=== PATIENT | male | born 1965 | race Caucasian/White ===

== ENCOUNTER 2021-08-23 01:29 | Inpatient (IN) ==
[2021-08-23] MEDS ORDERED: PIPERACILL/TAZOBAC CONSULT ACTIVE PRN ×2 (01:56→05:46)
[2021-08-23] MEDS ORDERED: PIPERACILLIN/TAZOBACTAM 4.5 GM/120 ML BAG IV ONE (01:56)
[2021-08-23 02:14] LABS: Basophils # (auto) 0.01 K/uL (0-0.2); Basophils % (auto) 0.1 %; Hematocrit (blood only) 25.2 % (42-52); Hemoglobin 7.6 g/dL (14.0-18.0); Immature Granulocytes # (auto) 0.04 K/uL (0.00-0.02); Immature Granulocytes % (auto) 0.3 %; Lymphocytes # (auto) 0.56 K/uL (1.2-3.4); Lymphocytes % (auto) 4.5 %; Mean Corpuscular Hemoglobin 26.2 pg (25-34); Mean Corpuscular Hgb Conc 30.2 g/dL (32-36); Mean Corpuscular Volume 86.9 fL (80-100); Mean Platelet Volume 8.5 fL (7.4-10.4); Monocytes # (auto) 0.75 K/uL (0.11-0.59); Monocytes % (auto) 6.1 %; Neutrophils # (auto) 10.96 K/uL (1.4-6.5); Platelet Count 382 K/uL (130-400); RDW Coefficient of Variation 27.8 % (11.5-14.5); RDW Standard Deviation 85.5 fL (36.4-46.3); White Blood Count 12.32 K/uL (4.8-10.8)
--- NOTE | 2021-08-23 02:28 | History & Physical Report ---
Date of Service August 23, 2021 Assessment & Plan (1) Esophageal carcinoma: (2) Abdominal pain: (3) Anemia: Plan: For the present time the patient was admitted to [facility]. We will proceed as follows: Due to the fluid collection there is concern the patient may have had some leakage of bowel contents into his abdomen We will template planning on performing an abdominal washout. We may attempt to try this laparoscopically but may have to convert to an open procedure Keep the patient n.p.o. for the present time We will hydrate the patient with intravenous fluids We will follow serial labs. We will request a medical consultation with the hospitalist service. I have discussed the case with them. As the patient is due to begin chemotherapy on 08/23/2021 we will notify his oncologist, Dr. Devi. Due to the patient's noted anemia I have obtained a blood consent from the patient in case that any blood transfusion is required. Additional recommendations be forthcoming based on operative findings and the patient's clinical course as it unfolds Due to the patient's anemia we will use SCDs only for DVT prevention. We will withhold chemical means for the present time until we are certain there is no evidence of intra-abdominal bleed I have discussed CODE STATUS with the patient and his who is present at bedside and they note in the event of cardiopulmonary as he will be a level 1 full code History of Present Illness Chief Complaint: Abdominal pain Primary Care Provider: Uzair Coffman PA-C This is a 55-year-old gentleman with a history of esophageal cancer. Patient follows at [facility] with Dr. Cruzito Ritter of hematology oncology. The patient was to have chemotherapy initiated on 08/23/2021 (which is today) and follow-up chemotherapy consideration was being given to having patient undergo radiation therapy. Once these modalities were complete according to the patient and his consideration was going to be given to having the patient be evaluated by thoracic surgeon for consideration of esophagectomy. In anticipation of patient's need for chemotherapy he was seen by Dr. Pederson and on 08/22/2021 the patient had a left subclavian a port placed and he also had a J-tube placed via a laparoscopic approach. He also had an umbilical hernia repair at the same time. The patient notes initially after his surgery he was doing well. He did experience some abdominal pain but he merely thought that this was just routine postoperative pain. He notes that throughout the course of the evening following his surgery his pain became worse. The patient denies any fevers, shakes, chills. He did experience nausea without vomiting. He has not had a bowel movement since his surgery but is passing flatus. In addition he notes that his abdomen is more distended and bloated since his surgical procedure. Since his J-tube is in place he has noted a small amount of serosanguineous drainage from around the tube and he has not used the tube for any tube feeds or flushes. As the patient lives near [facility] he presented there due to his abdominal pain. While at this facility he did have a CT scan of the abdomen and pelvis that showed high density material at the gastroesophageal junction which was felt to potentially represent a small amount of hemorrhage. There is also perihepatic and perisplenic fluid along with free fluid throughout the abdomen and pelvis. The patient was noted to have a jejunostomy did appear to be in place on this study. Concerning the patient's esophageal cancer the patient says that he is still able to eat solid food. He says that if he does not chew his food very thoroughly it sometimes will get stuck. Patient reports that he is a lifetime non-smoker but he does have a history of alcohol use in the past. He has no history of DVT or PE. He notes his most recent oral intake was some liquids at approximately 4:00 PM on 08/22/2021 but is otherwise not had anything by mouth since then. In addition the patient notes that he has required multiple transfusions due to anemia related to his cancer. Since arrival to [facility] the patient has had a chest x-ray taken. This showed that he had a left subclavian a port that appeared to be in good position. There did not appear to be any pneumothorax. There is no evidence of pleural effusion. There not appear to be any free air noted. The gastric bubble was visualized under the left hemidiaphragm. CBC has been performed and white blood cell count is noted to be 12.3. His hemoglobin and hematocrit were 7.6 and 25.2.. Platelet count is noted to be 382,000. Coagulation studies and a comprehensive metabolic profile along with a magnesium level are all pending. At the time of my interview the patient was resting comfortably in bed. He did not appear to be in any distress. He was noted to be afebrile and normotensive. He had a slight tachycardia with a heart rate of 107. His pulse ox is 10 percent on room air. Allergies Allergy/AdvReac Type Severity Reaction Status Date / Time No Known Allergies Allergy Verified 08/22/21 08:24 Home Medications Medication Instructions Recorded Confirmed Type acetaminophen 500 mg tablet 500 mg PO QID PRN 08/16/21 08/23/21 History (Tylenol Extra Strength) dronabinol 5 mg capsule (Marinol) 5 mg PO BID 08/16/21 08/23/21 History multivitamin 1 tab PO DAILY 08/16/21 08/23/21 History omeprazole 20 mg capsule,delayed 20 mg PO QPM 08/16/21 08/23/21 History release oxycodone 5 mg tablet 5 mg PO Q4H PRN 08/16/21 08/23/21 History pantoprazole 40 mg tablet,delayed 40 mg PO QAM 08/16/21 08/23/21 History release (Protonix) polyethylene glycol 3350 17 17 g PO DAILY 08/16/21 08/23/21 History gram/dose oral powder (Miralax) sucralfate 1 gram tablet (Carafate) 1 g PO BID 08/16/21 08/23/21 History olanzapine 2.5 mg tablet 2.5 mg PO UD 08/23/21 08/23/21 History ondansetron HCl 8 mg tablet 8 mg PO Q8 PRN 08/23/21 08/23/21 History Past Med/Surg History Medical History 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" following [facility] Gastric cancer "poorly differentiated adenocarcinoma" following [facility] Gastritis GERD (gastroesophageal reflux disease) Iron deficiency anemia Left inguinal hernia Umbilical hernia Surgical History H/O esophagogastroduodenoscopy H/O hernia repair RT INGUINAL HERNIA X 2 S/P rotator cuff repair RT [place] teeth removed Family History Father Cancer Prostate Grandmother (Paternal) Cancer Lung cancer Other No family history of adverse response to anesthesia Social History Smoking Status: Never smoker Second Hand Exposure: Yes ( A CHILD); Hx Alcohol Use: Yes Alcohol type: beer, wine and hard liquor Alcohol Intake Frequency Comment: daily Hx Substance Use: Yes Non-Prescribed Medications: Marijuana Last Used Substance Other:: LAST USED>THIS WEEK *ADVISED by RN Preferred Language: [place]an Communication Ability: Effective Visual Impairment: No Limitations Hearing Ability: Normal Automation Qa Lead Required: No Beliefs That Will Affect Care: None marital status: Current Living Situation: Spouse current occupational status: employed current occupation: [employer] of [employer] How many Children do You have: 1 Feels Safe at Home: Yes Diet Comment: Ensure supplement daily during the past year weight has: decreased > 10 lbs Assistive Devices: Glasses Review of Systems Constitutional: + fatigue; no fever and no chills Eyes: no diplopia Ear, Nose, Mouth, Throat: no ear pain Respiratory: no cough and no dyspnea Cardiovascular: no chest pain Gastrointestinal: as per Subjective / HPI, + abdominal pain and + nausea; no vomiting Genitourinary: no dysuria Musculoskeletal: no back pain Integumentary: no rash Neurologic: no localized weakness Physical Exam Constitutional: well developed and well nourished; no acute distress Eyes: no conjunctival abnormality ENMT: Ears: no hearing impairment and no external ear abnormality Mouth: no oropharynx abnormality Neck: trachea midline No crepitus noted in the soft tissue of patient's neck. Patient had a left subclavian a port. There was a small amount of serosanguineous drainage along the incision but overall there was no erythema or evidence of hematoma at the port site. There is no pain with palpation of this area. Respiratory: normal respiratory effort, lungs clear to auscultation Cardiovascular: Rate/Rhythm: regular rate and regular rhythm Gastrointestinal (Abdomen): Abdomen is mildly distended. There is no rebound tenderness or guarding. There is some generalized pain with palpation. A J- tube is in place. There is a small amount of serosanguineous drainage of the J- tube site. There is no erythema near the insertion site. There is no evidence of fluid or hematoma at the insertion site. Patient has a transverse incision near his umbilicus where umbilical herniorrhaphy was performed. This incision was clean, dry, and intact Musculoskeletal: No calf tenderness Skin: no rashes Neurologic: moves all extremities Psychiatric: A+Ox3, euthymic affect Results & Data Results & Data ([facility]) Vital Signs (Past 12 Hours) Vital Signs Temp Pulse Pulse Resp BP BP Pulse Ox 08/23/21 01:51 107 H 20 108/68 08/23/21 01:50 100 08/23/21 01:35 35.6 C L 72 18 80/53 L 100 Supervising Physician Co-Signing Physician Notes Dr. Dunbarpatient seen in the emergency room after being transferred from [facility] in [place] Patient had a port placed and laparoscopic assisted jejunostomy tube earlier on 08/22/2021. Patient went home and did take some MiraLAX and Dulcolax and began having worsening abdominal pain. CT scan at [facility] showed significant fluid in the abdomen which would not be common the soon after the operation. I do believe he is leaking from his bowel and requires urgent operation This will most likely be done open with abdominal washout and possible repair of the bowel PG Care Time/CCT Total # of Minutes Spent Total Time Spent with Patient: Total time spent is greater than 50% in coordination of care (as documented) at patient's floor/unit and/or counseling patient: Coding Level of Care Code 00853 Initial Inpt Care Lvl 3 Diagnoses Esophageal carcinoma C15.9 Abdominal pain R10.9 Anemia D64.9
[2021-08-23 02:29] LABS: Partial Thromboplastin Ratio 0.9; Partial Thromboplastin Time 23.7 Seconds (21.0-31.0); Prothrombin Time 10.4 Seconds (9.0-12.0)
[2021-08-23 02:35] LABS: Albumin Globulin Ratio 1.3 (0.9-2); Albumin Level 3.4 gm/dl (3.4-5.0); Anisocytosis Present; BUN Creatinine Ratio 16.9 (10-20); Bilirubin,Total 0.5 mg/dl (0.2-1.0); Calcium 8.3 mg/dl (8.5-10.1); Creatinine Clr Calc Pharmacy 66.1 ml/min; Est GFR (Non-African American) 69.1 ml/min; Globulin 2.7 gm/dl (2.5-4.0); Hypochromasia Present; Magnesium 2.3 mg/dl (1.7-2.4); Potassium 4.4 mmol/L (3.5-5.1); Total Protein 6.1 gm/dl (6.0-8.3)
[2021-08-23] MEDS ORDERED: LACTATED RINGER'S 1,000 ML IV SCH (02:45)
[2021-08-23] MEDS ORDERED: SODIUM CHLORIDE 0.9% 250 ML IV PRN ×2 (02:58→17:30)
[2021-08-23] MEDS ORDERED: fentaNYL citrate 100 MCG/2 ML VIAL ONE (03:28)
[2021-08-23] MEDS ORDERED: ONDANSETRON INJ 2 MG/ML 2 ML VIAL ONE (03:28)
[2021-08-23] MEDS ORDERED: PROPOFOL IV EMULSION 10 MG/ML 20 ML VIAL IV ONE (03:28)
[2021-08-23] MEDS ORDERED: SUCCINYLCHOLINE CHLORIDE 20 MG/ML 10 ML VIAL IV ONE (03:28)
[2021-08-23] MEDS ORDERED: ROCURONIUM BROMIDE 10 MG/ML 5 ML VIAL IV ONE (03:28)
[2021-08-23] MEDS ORDERED: LIDOCAINE 2% 2 ML VIAL/AMP(20MG/ML) INFIL ONE (03:28)
--- NOTE | 2021-08-23 03:46 | Anesthesiology Consultation ---
Date of Service August 23, 2021 Assessment & Plan (1) Encounter for pre-operative examination: Chart Review Chart Review: Acceptable Risk for Surgery and Patient NOT seen in Pre Admission Testing Consults Requested none History Surgery Operation Date: 08/23/21 04:00 Proposed Procedures p Exploratory Laparotomy - Lopez Dunbar MD, FACS Height/Weight Height: 5 ft 7 in Weight: 67.6 kg Allergies Allergy/AdvReac Type Severity Reaction Status Date / Time No Known Allergies Allergy Verified 08/22/21 08:24 Medications Home Medications Medication Instructions Recorded Confirmed Last Taken acetaminophen 500 mg tablet 500 mg PO QID PRN 08/16/21 08/23/21 08/21/21 17:00 (Tylenol Extra Strength) dronabinol 5 mg capsule (Marinol) 5 mg PO BID 08/16/21 08/23/21 08/22/21 multivitamin 1 tab PO DAILY 08/16/21 08/23/21 08/22/21 omeprazole 20 mg capsule,delayed 20 mg PO QPM 08/16/21 08/23/21 08/22/21 release oxycodone 5 mg tablet 5 mg PO Q4H PRN 08/16/21 08/23/21 08/22/21 06:00 pantoprazole 40 mg tablet,delayed 40 mg PO QAM 08/16/21 08/23/21 08/22/21 release (Protonix) polyethylene glycol 3350 17 17 g PO DAILY 08/16/21 08/23/21 08/22/21 gram/dose oral powder (Miralax) sucralfate 1 gram tablet (Carafate) 1 g PO BID 08/16/21 08/23/21 08/22/21 olanzapine 2.5 mg tablet 2.5 mg PO UD 08/23/21 08/23/21 08/22/21 ondansetron HCl 8 mg tablet 8 mg PO Q8 PRN 08/23/21 08/23/21 Unknown Active Medications Generic Name Dose Route Start Last Admin Trade Name Freq PRN Reason Stop Dose Admin Lactated Ringer's 1,000 mls @ 80 mls/hr 08/23/21 02:45 08/23/21 03:30 Lr IV 09/22/21 02:44 80 mls/hr .[id number] TIM Administration NPO Date Last Intake of Fluids: 08/22/21 Time Last Intake of Fluids: 16:00 Date Last Intake of Solids: 08/22/21 Time Last Intake of Solids: 16:00 Past Medical History Medical History 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" [facility] Gastric cancer "poorly differentiated adenocarcinoma" following [place] [facility] Gastritis GERD (gastroesophageal reflux disease) Iron deficiency anemia Left inguinal hernia Umbilical hernia Past Family History Family History Father Cancer Prostate Grandmother (Paternal) Cancer Lung cancer Other No family history of adverse response to anesthesia Past Surgical History Surgical History H/O esophagogastroduodenoscopy H/O hernia repair RT INGUINAL HERNIA X 2 S/P rotator cuff repair RT [place] teeth removed Social History Smoking Status: Never smoker tobacco type: smokeless tobacco Hx Alcohol Use: Yes Alcohol type: beer, wine and hard liquor alcohol intake frequency: a few times a week Hx Substance Use: Yes substance use type: marijuana Last Used Substance Other:: LAST USED>THIS WEEK *ADVISED by RN Physical Exam Vital Signs Last Vital Signs Temp 35.6 C L 08/23/21 01:35 Pulse 107 H 08/23/21 01:51 Resp 20 08/23/21 01:51 BP 108/68 08/23/21 01:51 Pulse Ox 100 08/23/21 01:50 Testing Laboratory Results 08/23/21 01:50 08/23/21 01:50 PT 10.4 Seconds (9.0-12.0) 08/23/21 01:50 INR 1.0 (0.9-1.1) 08/23/21 01:50 APTT 23.7 Seconds (21.0-31.0) 08/23/21 01:50 Blood Type Cancelled 08/23/21 02:13 Antibody Screen Cancelled 08/23/21 02:13 Other Testing Electrocardiogram Date:07/25/21 NSR, rate 91 bpm Other Testing PET skull-mid thigh 08/15/2021 Head and neck: There is expected physiologic activity within the visualized brain parenchyma at the skull base and the salivary glands. Thorax: Evaluation of the thorax demonstrates expected physiologic myocardial activity. There are no pathologically enlarged or FDG avid mediastinal lymph nodes. There are no pathologically enlarged or FDG avid mediastinal lymph nodes. There is no evidence of esophageal mass. Abdomen and pelvis: There is expected activity within the liver, spleen, kidneys, renal collecting system, and bladder. Low-level bowel activity is likely within physical limits. There is diffuse wall thickening seen throughout the proximal to mid stomach, extending from the gastroesophageal junction to the pylorus. This is markedly FDG avid with a maximum SUV of 17.1. There is bulky, confluent, and FDG avid upper abdominal and retroperitoneal lymphadenopathy. A left periaortic node on image #173 measures 3.3 cm and demonstrates a maximum SUV of 13.8. Confluent adenopathy in the gastrohepatic region/radha hepatis on image #158 measures up to 4.5 cm and demonstrates a maximum SUV of 12.6. A retrocaval node on image 185 measures 1.9 cm and demonstrates a maximum SUV of 14.1. There is no iliac chain, pelvic sidewall, or inguinal lymphadenopathy. Mildly enlarged right retrocrural nodes at the esophageal hiatus on image #155 demonstrate a maximum SUV of 5.6. Unenhanced CT images: The visualized brain parenchyma the skull base is normal in appearance. The orbits are intact and orbital contents are normal as visualized. The paranasal sinuses and mastoid air cells are clear. The salivary and thyroid glands are within normal limits. There is no cervical lymph adenopathy. The thoracic aorta is normal in caliber. The heart is normal in size and without pericardial effusion. There is no hilar or axillary lymphadenopathy. No airspace consolidation or pleural effusion is identified. No concerning pulmonary lesion is seen. The unenhanced liver, gallbladder, spleen, adrenal glands, pancreas, and kidneys are grossly normal. The abdominal aorta is normal in caliber noting minimal atherosclerotic calcification. There is a fat- containing umbilical hernia. No intraperitoneal free air or abdominal ascites is seen. There is no bowel obstruction. A normal appendix is identified. The bladder, prostate, and seminal vesicles are normal as imaged. There is a fat-co ntaining left inguinal hernia. Mild spondylotic changes noted in the cervical and lumbar spine. No destructive bony lesion is seen. IMPRESSION: 1. There is extensive wall thickening throughout the majority of stomach as detailed above which is markedly FDG avid. The appearance favors a gastric neop lasm or possibly lymphoma as opposed to esophageal carcinoma. 2. There is bulky and confluent upper abdominal and retroperitoneal lymphadenopathy as above. This is also markedly FDG avid. 3. No FDG avid lesion is seen along the course of the esophagus and there is no mediastinal lymphadenopathy. 4. The lungs are clear. 5. Additional findings as above.
[2021-08-23] MEDS ORDERED: NEOSTIGMINE METHYLSULFATE 1 MG/ML 10ML VIAL ONE (05:07)
[2021-08-23] MEDS ORDERED: DEXAMETHASONE SOD INJ 4 MG/ML VIAL ONE (05:07)
[2021-08-23] MEDS ORDERED: GLYCOPYRROLATE 0.2 MG/ML VIAL ONE (05:07)
[2021-08-23] MEDS ORDERED: ePHEDrine sulfate 50 MG/ML AMP ONE (05:07)
--- NOTE | 2021-08-23 05:23 | Operative Report ---
PG Post Operative Report Pre & Post Diagnosis Operation Date: 08/23/21 04:00 Pre-Op Diagnosis: Esophageal Carcinoma, Abdominal Pain, Anemia Post-Op Diagnosis: Esophageal Carcinoma, Abdominal Pain, Anemia I identified the patient and participated in the time-out.: Yes Procedure Operation Date: 08/23/21 04:00 Actual Procedures p Exploratory Laparotomy, Abdominal Washout - Ricardo Pederson DO Surgeon Ricardo Pederson DO Blow Up Operator Dr. Manjinder MD Estimated Blood Loss 1,800 Findings Consistent with Post-Op Diagnosis Specimens none Description of Procedure After informed consent was obtained the patient was taken to the operating room and placed in supine position. After successful intubation a Ocasio catheter was placed and the abdomen as well as existing jejunostomy tube were sterilely prepped and draped in usual fashion. A Midline incision above the umbilicus was made with a 10 blade scalpel. This was carried down through the soft tissue using cautery. Anterior fascia was opened using cautery. Peritoneum was elevated with hemostats and incised with a Metzenbaum scissor. We immediately encountered a large amount of blood clot within the abdominal cavity. There was no bile or succus. We proceeded to suction out blood clot manually as well as with a suction device. All total there was approximately 1800 cc of blood from his prior surgery. There was no evidence of any active bleeding. It appears as though the bleeding came from a muscle at his jejunostomy site. The jejunostomy tube was in good position up against the abdominal wall and not leaking. We thoroughly irrigated the entire abdomen all 4 quadrants with multiple liters of warm irrigation. A 19 Yi Otilio drain was advanced into the pelvis through a separate stab incision and secured to the skin with 2-0 nylon. Again no active bleeding was identified. No other gross abnormalities were seen. The fascia was closed with 0- looped PDS starting at either pole and running them and securing them together in the midline. Soft tissue was irrigated and skin was closed with skin marcos. Silver dressing was applied. The patient was aw akened extubated and transferred to the intensive care unit in guarded condition. I attest to the content of the Intraoperative Record and any orders documented therein. Any exceptions are noted below.
[2021-08-23] MEDS ORDERED: ONDANSETRON INJ 2 MG/ML 2 ML VIAL IV PRN ×2 (05:46→05:58)
[2021-08-23] MEDS ORDERED: PIPERACILLIN/TAZOBACTAM 3.375 GM in DEXTROSE 5% 100 ML IV SCH (05:46)
[2021-08-23] MEDS ORDERED: ACETAMINOPHEN 1,000 MG/100 ML VIAL IV PRN (05:46)
[2021-08-23] MEDS ORDERED: ATROPINE SULFATE 0.1 MG/ML 10ML SYR IV PRN (05:58)
[2021-08-23] MEDS ORDERED: ePHEDrine sulfate 50 MG/ML AMP IV PRN (05:58)
[2021-08-23] MEDS ORDERED: fentaNYL citrate 100 MCG/2 ML VIAL IV PRN (05:58)
[2021-08-23] MEDS ORDERED: HYDROmorphone INJ 1 MG/ML SYRINGE IV PRN (05:58)
[2021-08-23] MEDS ORDERED: HYDROmorphone INJ 0.5 MG/0.5 ML SYR ONE (06:05)
--- NOTE | 2021-08-23 06:11 | Anesthesiology Progress Note ---
Date of Service August 23, 2021 Anesthesia Post Procedure Vital Signs Vital Signs: Temp Pulse Pulse Resp BP BP Pulse Ox 08/23/21 06:10 99 H 16 137/77 96 08/23/21 06:00 100 H 19 143/82 H 99 08/23/21 05:50 95 H 18 140/82 100 08/23/21 05:40 100 H 16 142/80 H 100 08/23/21 05:32 36.5 C 105 H 16 144/77 H 100 08/23/21 01:51 107 H 20 108/68 08/23/21 01:50 100 08/23/21 01:35 35.6 C L 72 18 80/53 L 100 Pain Intensity Abdomen: Pain Intensity: 4 Transfer of Care Handoff Completed per policy Notes Mental Status: alert / awake / arousable and participated in evaluation Patient Amnestic to Procedure: Yes Nausea / Vomiting: adequately controlled Pain: adequately controlled Airway Patency, RR, SpO2: stable & adequate BP & HR: stable & adequate Hydration State: stable & adequate Anesthetic Complications: no major complications apparent and Pt Satisfied with anesthetic care
--- NOTE | 2021-08-23 06:13 | Procedure Note ---
Procedure Note Date of Service August 23, 2021 Note Radial arterial line placed in OR8 after induction in preparation for exploratory lap with dr. Dunbar and Dr. Pederson. Left wrist prepped with chlorhexidine and draped with sterile towels. 20 G angiocath placed under sterile technique utilizing sterile gloves, surgical hats and masks. Catheter threaded using seldinger technique with return of pulsatile, bright red blood. Site covered with occlusive dressing and taped in place. Waveform consistent with correct arterial placement. After placement, fingers of procedural hand had normal perfusion. Patient tolerated procedure well without complications. Mandie Hall MD, PhD Anesthesiologist Coding
--- NOTE | 2021-08-23 06:28 | Critical Care Consultation ---
Date of Consultation August 23, 2021 Assessment & Plan (1) Admitted to intensive care unit: Reason Critically Ill: 55-year-old male with newly diagnosed esophageal carcinoma who is status post G-tube placement with findings concerning for intra-abdominal blood. Patient status post exploratory laparotomy with large amount of blood noted in the abdomen. Patient requiring close hemodynamic monitoring status post surgical intervention and transfusion of blood products. NEURO - * CAM ICU: NEGATIVE CARDIAC/VASCULAR - * Briefly hypotensive intraoperatively. * Normotensive status post transfusion of PRBCs. * Monitor on telemetry. RESPIRATORY - * No history of pulmonary disease. * Saturating well at this time. GI/NUTRITION - * Esophageal carcinoma: * Patient previously scheduled to undergo chemotherapy today. Will defer to heme/onc in light of recent events. * s/p J tube placement. * s/p LEFT subclavian A port placement. RENAL/LYTES - * No significant electrolyte derangements. - * Ocasio in place - Strict I&Os. ENDO - * No h/o DM or Thyroid Dz * BSGs per unit protocol. ISS --> gtt per unit policy. HEME - * Acute blood loss anemia: * s/p transfusion of 1U PRBC. * Trend H&H. * Monitor for ongoing s/s bleeding. ID - * No immediate concerns for infectious causes. * Trend fever curve. LINES/IV ACCESS - * PIVs x2 * LEFT Radial Arterial Line * LEFT subclavian A port. * Ocasio DVT PROPHYLAXIS - * Hold on chemoprophylaxis s/p intraabdominal bleeding. * SCDs I have personally spent 32 minutes of critical care time in the direct management of this patient. This is a life/limb threatening event. This includes time spent evaluating patient, direct bedside care, chart review, placing orders, interpretation of diagnostic studies, discussion with consultants, patient, and family members, as well as other required patient management activities. This time is exclusive of all separately billable procedures, and teaching time and separate from and in addition to any other critical care service time. Thank you for allowing us to participate in the care of this patient. Please re maddie to my attending physician's documentation for any further recommendations. (2) S/P exploratory laparotomy: (3) Anemia: (4) Esophageal carcinoma: History of Present Illness Attending Physician: Ricardo Pederson, History of Present Illness Patient is a 55-year-old male with a recently diagnosed esophageal cancer who is now receiving treatment at [facility]. He underwent placement of LEFT subclavian MediPort, J-tube placement, and umbilical hernia repair yesterday. Patient did extremely well and was discharged home. Unfortunately, the patient had increased abdominal discomfort and presented to the [facility] emergency department where he underwent CT scan concerning with diffuse fluid throughout the abdomen. Patient accepted back to this institution for likely need for surgical intervention. Patient underwent exploratory laparotomy with abdominal washout with findings of bleeding at the site of the abdominal wall without active bleeding noted. Patient received 1 unit PRBC intraoperatively. He was extubated and brought to the ICU for ongoing management. Upon evaluation in the ICU, the patient is awake, alert, and oriented. He is groggy status post anesthesia. He does complain of some abdominal discomfort at the surgical site, but otherwise offers no significant complaints at this time. Allergies Allergy/AdvReac Type Severity Reaction Status Date / Time No Known Allergies Allergy Verified 08/22/21 08:24 Home Medications Medication Instructions Recorded Confirmed Type acetaminophen 500 mg tablet 500 mg PO QID PRN 08/16/21 08/23/21 History (Tylenol Extra Strength) dronabinol 5 mg capsule (Marinol) 5 mg PO BID 08/16/21 08/23/21 History multivitamin 1 tab PO DAILY 08/16/21 08/23/21 History omeprazole 20 mg capsule,delayed 20 mg PO QPM 08/16/21 08/23/21 History release oxycodone 5 mg tablet 5 mg PO Q4H PRN 08/16/21 08/23/21 History pantoprazole 40 mg tablet,delayed 40 mg PO QAM 08/16/21 08/23/21 History release (Protonix) polyethylene glycol 3350 17 17 g PO DAILY 08/16/21 08/23/21 History gram/dose oral powder (Miralax) sucralfate 1 gram tablet (Carafate) 1 g PO BID 08/16/21 08/23/21 History olanzapine 2.5 mg tablet 2.5 mg PO UD 08/23/21 08/23/21 History ondansetron HCl 8 mg tablet 8 mg PO Q8 PRN 08/23/21 08/23/21 History Patient History Medical History 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" [facility] Gastric cancer "poorly differentiated adenocarcinoma" following [facility] Gastritis GERD (gastroesophageal reflux disease) Iron deficiency anemia Left inguinal hernia Umbilical hernia Surgical History H/O esophagogastroduodenoscopy H/O hernia repair RT INGUINAL HERNIA X 2 S/P rotator cuff repair RT [place] teeth removed Family History Father Cancer Prostate Grandmother (Paternal) Cancer Lung cancer Other No family history of adverse response to anesthesia Social History Smoking Status: Never smoker Second Hand Exposure: Yes (As a child); Do You Dip or Chew Tobacco: No; Tobacco Cessation Education Requested by Patient: No Hx Alcohol Use: Yes Alcohol type: beer and wine Alcohol Intake Frequency Comment: daily Hx Substance Use: Yes Non-Prescribed Medications: Marijuana Last Used Substance: Days (ago) Last Used Substance Other:: LAST USED>THIS WEEK *ADVISED by RN Preferred Language: Albanian Communication Ability: Effective Visual Impairment: No Limitations Hearing Ability: Normal Pump Tester Required: No Beliefs That Will Affect Care: None marital status: Current Living Situation: Family current occupational status: employed 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 GENERAL - 55-year-old male appearing his stated age who is in no acute distress. Communicates well with provider and answers questions appropriately. HEAD - NC/AT. EYES - PERRL with EOMI bilaterally. Sclera anicteric. NECK - Neck with FROM. LUNGS - Chest wall symmetric without accessory muscle use, intercostals retractions, or central cyanosis. Normal vesicular breath sounds CTA B/L. No wheezes, rales, or rhonchi appreciated. CARDIAC - RRR with S1/S2. No murmur, rubs, or gallops appreciated. ABDOMEN - Abdominal contour flat. Midline surgical incision site clean, dry, and intact. GEORGE drain in place. PEG tube present. Mild diffuse TTP. EXTREMITIES - No clubbing or peripheral cyanosis. No pretibial edema present. +3/5 radial and dorsalis pedis pulses palpated throughout. NEUROLOGIC - Cranial nerves II through XII grossly intact. PSYCH - A&Ox3 and cooperates fully with examiner. Pt is very pleasant and interacts well with examiner. Results & Data Results & Data ([facility]) Vital Signs (Past 12 Hours) Vital Signs Temp Pulse Pulse Resp BP BP Pulse Ox 08/23/21 05:50 95 H 18 140/82 100 08/23/21 05:40 100 H 16 142/80 H 100 08/23/21 05:32 36.5 C 105 H 16 144/77 H 100 08/23/21 01:51 107 H 20 108/68 08/23/21 01:50 100 08/23/21 01:35 35.6 C L 72 18 80/53 L 100 Coding Level of Care Code Critical Care 1st 30-74 mins Diagnoses Admitted to intensive care unit Z78.9 S/P exploratory laparotomy Z98.890 Anemia D64.9 Esophageal carcinoma C15.9 Time Spent (min) 32
[2021-08-23 06:54] LABS: Hematocrit (blood only) 23.8 % (42-52); Hemoglobin 7.6 g/dL (14.0-18.0)
[2021-08-23] MEDS: LACTATED RINGER'S 1,000 ML IV SCH ×2 (07:14→15:58)
--- NOTE | 2021-08-23 07:14 | XRay Report ---
XR chest 1V portable HISTORY: 55 years-old Male abdomnal pain acute chest and abdominal pain COMPARISON: Chest radiograph 08/22/2021 TECHNIQUE: Portable AP view of the chest FINDINGS: Cardiomediastinal and hilar silhouettes are within normal limits. Left subclavian [address] is noted with distal tip terminating in the expected location of the upper SVC. Trace pleural eff usions. Minimal left basilar atelectasis persists. No pneumothorax, lobar airspace consolidation or o vert pulmonary edema. The bones of the chest appear grossly intact. Metallic coil device projects ove r the neck, possibly external to the patient. Healed chronic fracture of the anterior left second rib . IMPRESSION: Unchanged trace pleural effusions with minimal left basilar atelectasis. ACT 112: Negative or not required by law. The above report was generated using voice recognition software. It may contain grammatical, syntax o r spelling errors. Electronically signed by: Claudio Delgado M.D. 08/23/2021 7:12 AM
[2021-08-23] MEDS: PIPERACILLIN/TAZOBACTAM 3.375 GM in DEXTROSE 5% 100 ML IV SCH ×2 (07:30→17:23)
[2021-08-23] MEDS: MoRPHine SULFATE 4 MG/ML 1 ML CARP\\VIAL IV PRN ×5 (07:43→22:35)
--- NOTE | 2021-08-23 08:10 | Hospitalist Progress Note ---
Date of Service August 23, 2021 Assessment & Plan (1) Esophageal carcinoma: Plan: This is a 55-year-old gentleman with a history of esophageal cancer. Patient follows at [facility] with Dr. Cruzito Ritter of hematology oncology. The patient was to have chemotherapy initiated on 08/23/2021 (which is today) and follow-up chemotherapy consideration was being given to having patient undergo radiation therapy. Once these modalities were complete accor ding to the patient and his consideration was going to be given to having the patient be evaluated by thoracic surgeon for consideration of esophagectomy. Pt presented with abdominal pain and abnormal imaging suggestion some free fluid in the abdomen, was taken to the OR overnight for washout. The results of the laparotomy revealed 1800cc of bloody liquid and clot material believed to be co saray from a muscle at the site of the jejunostomy. A drain was placed (2) Acute blood loss anemia: Plan: Patient with postoperative acute blood loss anemia likely from his large hematoma found in the abdomen. We will continue to watch his globin level and transfuse as needed Admission and Anticipated Discharge Date Admission Date: August 23, 2021 Results & Data Results & Data ([facility]) Vital Signs (Past 12 Hours) Vital Signs Temp Pulse Pulse Resp BP BP Pulse Ox 08/23/21 06:20 97 H 14 131/73 95 08/23/21 06:10 99 H 16 137/77 96 08/23/21 06:05 104 H 20 144/77 H 100 08/23/21 06:00 100 H 19 143/82 H 99 08/23/21 05:50 95 H 18 140/82 100 08/23/21 05:40 100 H 16 142/80 H 100 08/23/21 05:32 97.7 F 105 H 16 144/77 H 100 08/23/21 01:51 107 H 20 108/68 08/23/21 01:50 100 08/23/21 01:35 96.1 F L 72 18 80/53 L 100 PG Care Time/CCT Total # of Minutes Spent Total Time Spent with Patient: Total time spent is greater than 50% in coordination of care (as documented) at patient's floor/unit and/or counseling patient: Coding Diagnoses Esophageal carcinoma C15.9 Acute blood loss anemia D62
[2021-08-23] MEDS ORDERED: GLUCAGON FOR INJ 1 MG VIAL IM PRN (09:45)
[2021-08-23] MEDS ORDERED: CARBOHYDRATES FOR HYPOGLYCEMIA PO PRN (09:45)
[2021-08-23] MEDS ORDERED: DEXTROSE 50% 50 ML SYRINGE IV PRN (09:45)
[2021-08-23] MEDS ORDERED: GLUCOSE 40% GEL 15 GM TUBE PO PRN (09:45)
[2021-08-23] MEDS ORDERED: GLUCOSE 10 TABS/TUBE PO PRN (09:45)
--- NOTE | 2021-08-23 10:12 | Surgery Progress Note ---
Date of Service August 23, 2021 Assessment & Plan (1) S/P exploratory laparotomy: Plan: POD#1 mediport placement, umbilical hernia repair, lap jejunostomy tube placement complicated by postop bleeding now POD#0 exlap and abdominal washout with evacuation of hematoma - Post op Hbg 7.6 (7.6). Cr: 1.1 (0.6), Ocasio in place for I/Os. - Vitals show stable BP and HR 90-100s. He has received a total of 1u PRBCs. Not on pressors - ICU planning on rechecking CBC at 2 - On exam patient's abdomen is soft, mild tenderness to palpation, GEORGE drain serosang 150cc documented - Okay to start clear liquids - Continue close monitoring and supportive care for now - Appreciate ICU, hospitalist, onc assistance and recommendations Admission and Anticipated Discharge Date Admission Date: August 23, 2021 Subjective Patient feeling okay. Some abdominal discomfort, but much better overall. Denies nausea/vomiting. Physical Exam Physical Exam: awake/alert Gastrointestinal (Abdomen): Inspection/Auscultation: + abdominal surgical incision (dressings in place, clean and intact) Percussion/Palpation: + abdomen tender (fabi-incisional discomfort to palpation) and abdomen soft GEORGE drain serosang;90+ 60cc documented Results & Data ([facility]) Vital Signs (Past 12 Hours) Vital Signs Temp Pulse Pulse Resp BP BP Pulse Ox 08/23/21 09:00 36.8 C 104 H 20 155/86 H 97 08/23/21 08:00 99 H 08/23/21 06:20 97 H 14 131/73 95 08/23/21 06:10 99 H 16 137/77 96 08/23/21 06:05 104 H 20 144/77 H 100 08/23/21 06:00 100 H 19 143/82 H 99 08/23/21 05:50 95 H 18 140/82 100 08/23/21 05:40 100 H 16 142/80 H 100 08/23/21 05:32 36.5 C 105 H 16 144/77 H 100 08/23/21 01:51 107 H 20 108/68 08/23/21 01:50 100 08/23/21 01:35 35.6 C L 72 18 80/53 L 100 PG Care Time/CCT Total # of Minutes Spent Total Time Spent with Patient: Total time spent is greater than 50% in coordination of care (as documented) at patient's floor/unit and/or counseling patient: Coding Level of Care Code None Diagnoses S/P exploratory laparotomy Z98.890
[2021-08-23] MEDS: INSULIN ASPART PER UNIT SC SCH ×3 (11:34→20:19)
[2021-08-23] MEDS: PANTOprazole 40 MG in SYRINGE 0 ML IV SCH (11:37)
[2021-08-23 14:12] LABS: Hematocrit (blood only) 22.2 % (42-52); Hemoglobin 7.1 g/dL (14.0-18.0)
--- NOTE | 2021-08-23 14:45 | Hospitalist Consultation ---
Date of Consultation August 23, 2021 Assessment & Plan (1) Esophageal carcinoma: This is a 55-year-old gentleman with a history of esophageal cancer. Patient follows at [facility] with Dr. Cruzito Ritter of hematology oncology. The patient was to have chemotherapy initiated on 08/23/2021 (which is today) and follow-up chemotherapy consideration was being given to having patient undergo radiation therapy. Once these modalities were complete according to the patient and his consideration was going to be given to having the patient be evaluated by thoracic surgeon for consideration of esophagectomy. Pt presented with abdominal pain and abnormal imaging suggestion some free fluid in the abdomen, was taken to the OR overnight for washout. The results of the laparotomy revealed 1800cc of bloody liquid and clot material believed to be coming from a muscle at the site of the jejunostomy. A drain was placed (2) Acute blood loss anemia: Patient with postoperative acute blood loss anemia likely from his large hematoma found in the abdomen. We will continue to watch his globin level and transfuse as needed History of Present Illness Attending Physician: Ricardo Pederson, History of Present Illness Sedation or medical management as patient is transitioning out of the intensive care unit. Patient has acute blood loss anemia as he had exploratory laparotomy which showed a large amount of blood in his abdomen which was felt to be possibly resulting from a muscular bleed after recent laparoscopic J-tube was placed in preparation for treatment for esophageal carcinoma. Patient is doing well postoperatively awake alert he says his abdomen feels much better surgery is in charge of advancing his diet but he is hemodynamically stable at this time although slightly anemic and will be transferred to a [facility] telemetry unit for watching his vital signs closely and then if he is improved after 24 hours may consider transition to medical unit in general. Allergies Allergy/AdvReac Type Severity Reaction Status Date / Time No Known Allergies Allergy Verified 08/22/21 08:24 Home Medications Medication Instructions Recorded Confirmed Type acetaminophen 500 mg tablet 500 mg PO QID PRN 08/16/21 08/23/21 History (Tylenol Extra Strength) dronabinol 5 mg capsule (Marinol) 5 mg PO BID 08/16/21 08/23/21 History multivitamin 1 tab PO DAILY 08/16/21 08/23/21 History omeprazole 20 mg capsule,delayed 20 mg PO QPM 08/16/21 08/23/21 History release oxycodone 5 mg tablet 5 mg PO Q4H PRN 08/16/21 08/23/21 History pantoprazole 40 mg tablet,delayed 40 mg PO QAM 08/16/21 08/23/21 History release (Protonix) polyethylene glycol 3350 17 17 g PO DAILY 08/16/21 08/23/21 History gram/dose oral powder (Miralax) sucralfate 1 gram tablet (Carafate) 1 g PO BID 08/16/21 08/23/21 History olanzapine 2.5 mg tablet 2.5 mg PO UD 08/23/21 08/23/21 History ondansetron HCl 8 mg tablet 8 mg PO Q8 PRN 08/23/21 08/23/21 History Patient History Medical History (Updated 08/23/21 @ 09:46 by Dorcas Pierce, RN) 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" following [facility] Gastric cancer "poorly differentiated adenocarcinoma" following [facility] Gastritis GERD (gastroesophageal reflux disease) Iron deficiency anemia Left inguinal hernia Umbilical hernia Surgical History (Updated 08/23/21 @ 09:48 by Dorcas Pierce, RN) H/O esophagogastroduodenoscopy H/O exploratory laparotomy (08/22/21) Exploratory Laparotomy, Abdominal Washout - Ricardo Pederson DO 08/22/2021 H/O hernia repair RT INGUINAL HERNIA X 2 Jejunostomy tube present (08/22/21) p Insertion of Infusaport Left Subclavian(Left) - Ricardo Pederson DO s Laproscopic Assisted Jejunostomy Tube Placement with Repair of Umbilical Hernia(Not Applicable) - Ricardo Pederson DO 08/22/21 Port-A-Cath in place (08/22/21) p Insertion of Infusaport Left Subclavian(Left) - Ricardo Pederson DO s Laproscopic Assisted Jejunostomy Tube Placement with Repair of Umbilical Hernia- Ricardo Pederson DO 08/22/21 S/P rotator cuff repair RT [place] teeth removed Family History Father Cancer Prostate Grandmother (Paternal) Cancer Lung cancer Other No family history of adverse response to anesthesia Social History (Reviewed 08/23/21 @ 06:20 by AMOR Camejo Smoking Status: Never smoker Second Hand Exposure: Yes (As a child); Do You Dip or Chew Tobacco: No; Tobacco Cessation Education Requested by Patient: No Hx Alcohol Use: Yes Alcohol type: beer and wine Alcohol Intake Frequency Comment: daily Hx Substance Use: Yes Non-Prescribed Medications: Marijuana Last Used Substance: Days (ago) Last Used Substance Other:: LAST USED>THIS WEEK *ADVISED by RN Preferred Language: Nepalese Communication Ability: Effective Visual Impairment: No Limitations Hearing Ability: Normal Lead Press Operator Required: No Beliefs That Will Affect Care: None marital status: Current Living Situation: Family current occupational status: employed 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 How many Children do You have: 1 Other Information That Helps Us Care for You: No Feels Safe at Home: Yes Safety Concerns: Feels Safe At This Time Diet Comment: Ensure supplement daily during the past year weight has: decreased > 10 lbs Assistive Devices: None Assistive Devices Comment: juanita ureña Review of Systems Review of Systems: Mild distress and fatigue no headache, no visual changes no speech or swallowing issues no chest pain, pressure or palpitations no shortness of breath, cough or wheezes Is of some abdominal pain dressings are in place he has a J-tube he also has a drain placed intraoperatively because of the large amount of bleeding no dysuria, hematuria or frequency no focal joint pain or swelling no back pain, CVA tenderness or radicular pain no bruising, bleeding or rashes no focal signs of weakness or numbness or altered sensation no complaints of anxiety or depression.. Physical Exam Physical Exam: The patient appeared well nourished and normally developed. Vital signs as documented. Head exam is normocephalic atraumatic Neck is without JVD, thyromegaly, or carotid bruits. Lungs are clear to auscultation, diminished at the bases Cardiac exam, Rhythm is regular.. No murmurs, rubs or gallops. Abdominal exam hypoactive bowel sounds dressings in place drain in place J-tube in place Extremities are nonedematous and both pedal pulses are present Neurologic exam is alert and oriented, no focal loss of strength or sensation Skin is without bruises or rashes Psychologically is without concerns for anxiety or depression.. Results & Data Results & Data ([facility]) Vital Signs (Past 12 Hours) Vital Signs Temp Pulse Pulse Resp BP Pulse Ox 08/23/21 09:00 98.2 F 104 H 20 155/86 H 97 08/23/21 08:00 99 H 08/23/21 06:20 97 H 14 131/73 95 08/23/21 06:10 99 H 16 137/77 96 08/23/21 06:05 104 H 20 144/77 H 100 08/23/21 06:00 100 H 19 143/82 H 99 08/23/21 05:50 95 H 18 140/82 100 08/23/21 05:40 100 H 16 142/80 H 100 08/23/21 05:32 97.7 F 105 H 16 144/77 H 100 PG Care Time/CCT Total # of Minutes Spent Total Time Spent with Patient: Total time spent is greater than 50% in coordination of care (as documented) at patient's floor/unit and/or counseling patient: Coding Level of Care Code 67004 Inpt Consult Level 3 Diagnoses Esophageal carcinoma C15.9 Acute blood loss anemia D62
[2021-08-24] MEDS: PIPERACILLIN/TAZOBACTAM 3.375 GM in DEXTROSE 5% 100 ML IV SCH ×2 (00:18→08:56)
[2021-08-24] MEDS: MoRPHine SULFATE 4 MG/ML 1 ML CARP\\VIAL IV PRN ×7 (01:35→23:47)
[2021-08-24] MEDS ORDERED: Nursing to Pharmacy Communication SCH (05:30)
[2021-08-24 06:20] LABS: Anisocytosis Present; Basophils # (auto) 0.01 K/uL (0-0.2); Basophils % (auto) 0.1 %; Hemoglobin 9.4 g/dL (14.0-18.0); Immature Granulocytes # (auto) 0.05 K/uL (0.00-0.02); Immature Granulocytes % (auto) 0.4 %; Lymphocytes # (auto) 0.52 K/uL (1.2-3.4); Lymphocytes % (auto) 3.8 %; Mean Corpuscular Hemoglobin 27.8 pg (25-34); Mean Corpuscular Hgb Conc 32.4 g/dL (32-36); Mean Corpuscular Volume 85.8 fL (80-100); Mean Platelet Volume 8.2 fL (7.4-10.4); Monocytes # (auto) 1.34 K/uL (0.11-0.59); Monocytes % (auto) 9.7 %; Neutrophils # (auto) 11.92 K/uL (1.4-6.5); Platelet Count 188 K/uL (130-400); RDW Standard Deviation 70.7 fL (36.4-46.3); Red Blood Count 3.38 M/uL (4.7-6.1); White Blood Count 13.84 K/uL (4.8-10.8)
[2021-08-24 06:33] LABS: BUN Creatinine Ratio 28.8 (10-20); Calcium 7.9 mg/dl (8.5-10.1); Creatinine Clr Calc Pharmacy 132.3 ml/min; Est GFR (African American) 132.1 ml/min; Potassium 4.5 mmol/L (3.5-5.1)
--- NOTE | 2021-08-24 07:56 | Hospitalist Progress Note ---
Date of Service August 24, 2021 Assessment & Plan (1) Esophageal carcinoma: Plan: This is a 55-year-old gentleman with a history of esophageal cancer. Patient follows at [facility] with Dr. Cruzito Ritter of hematology oncology. The patient was to have chemotherapy initiated on 08/23/2021 (which is today) and follow-up chemotherapy consideration was being given to having patient undergo radiation therapy. Once these modalities were complete accor ding to the patient and his consideration was going to be given to having the patient be evaluated by thoracic surgeon for consideration of esophagectomy. Pt presented with abdominal pain and abnormal imaging suggestion some free fluid in the abdomen, was taken to the OR overnight for washout. The results of the laparotomy revealed 1800cc of bloody liquid and clot material believed to be coming from a muscle at the site of the jejunostomy. A drain was placed POD#2 mediport placement, umbilical hernia repair, lap jejunostomy tube placement complicated by postop bleeding now POD#1 exlap and abdominal washout with evacuation of hematoma s/p 2 u PRBC last evening for drop in hgb to 7.1 --> 9.4 ZOsyn IV- continued On clear liquids --> advance diet per surgery PT/OT/pain management/DVT prophylaxis (SCDs) per primary service Heme/Onc on consult -- seeing today. Rec checking iron studies/transfuse if needed. Rec to d/c koo, advance diet and hopefully get patient d/c as soon as possible. --> Can postpone chemo but would not want to wait past 10 days. Offical consult pending Had been on clear liquid diet, koo discontinued this morning Increased abd pain/GEORGE output this morning --> reached out to surgery for re-eval but will check KUB If vomiting, would place NGT Instructed patient to avoid further PO intake/encourage ambulation as tolerated IVF LR @ 75cc/hr Ordered incentive spirometer Iron studies obtained --> iron 18, trans % sat 7% --> Venofer x 1 today, repeat in AM Ca 7.9, albumin 2.5, corrected 8.5 Mag 2..5 Monitor labs (2) Acute blood loss anemia: Plan: Patient with postoperative acute blood loss anemia likely from his large hematoma found in the abdomen. s/p 2 u PRBC 08/23 for hgb drop to 7.1 --> 9.4 on repeat Will check Iron panel --> Venofer 300mg IV today, repeat in AM Continue supplementation at discharge Plan: SCDs for DVT prophylaxis, chemoproph held in setting of acute blood loss/bleeding KUB for possible obstruction, NGT if nausea/vomiting Management per general surgery Admission and Anticipated Discharge Date Admission Date: August 23, 2021 Subjective patient evaluated this morning doing ok, pain tolerable and just got morphine GEORGE drain just emptied for 125cc bloody drainage. Not passing gas/no BM, no appetite. Discussed avoiding pushing any oral agents. Has not been out of bed yet, encouraged some ambulation when pain controlled. No fever/chills but had been feeling warm last evening. No chest pain but has some shortness of breath when breathing in from his abdominal pain. Encouraging incentive spirometer. Checked iron studies and discussed venofer IV. Koo d/c this morning, no urination since but this was just removed about half hour ago. Later after seeing another patient stopped back and saw GEORGE already accumulated about 80-90cc bloody drainage, patient in no acute distress but very worried about the increased drainage as this is more than prior. Will message general surgery for repeat eval and will also check stat KUB. Physical Exam Physical Exam: General: WD male, mild distress (improved after morphine), sitting up in bed, general pallor Eyes anicteric, pupils equal/reactive Mouth: mmm Chest: port to L chest, covered by tegaderm, minimal dried blood/appropriately tender Resp: occasional cough, not tachypneic, no accessory muscle use, diminished in the bases with associated crackles, no wheezing, on room air CV: regular rhythm, tachycardic (104bpm), no m/r/g, no edema, pulses palpable GI: hypoactive/absent BS, tender to palpation about surgical incision, voluntary guarding/no rebound, J tube in place, splintering with cough Ext/MSK: no focal deficits, CN intact Pscyh: alert, oriented, cooperative Results & Data Results & Data ([place]) Vital Signs (Past 12 Hours) Vital Signs Temp Pulse Pulse Resp BP BP Pulse Ox 08/24/21 07:39 37.1 C 110 H 16 153/82 H 91 08/24/21 03:06 37.1 C 116 H 20 135/80 90 08/24/21 01:28 37.5 C 116 H 16 152/83 H 92 08/24/21 00:05 37.5 C 114 H 18 153/81 H 08/24/21 00:00 116 H 08/23/21 23:05 37.3 C 114 H 18 146/81 H 93 08/23/21 22:35 37.2 C 115 H 18 154/88 H 92 08/23/21 22:20 37 C 117 H 18 146/75 H 94 08/23/21 22:03 37.1 C 120 H 18 144/77 H 94 08/23/21 21:37 36.6 C 115 H 18 152/82 H 96 08/23/21 21:20 36.8 C 117 H 18 139/75 96 08/23/21 20:20 36.6 C 115 H 18 150/84 H 96 Laboratory Results 08/24/21 08/24/21 08/24/21 Range/Units 07:25 05:46 05:46 WBC (4.8-10.8) K/uL RBC (4.7-6.1) M/uL Hgb (14.0-18.0) g/dL Hct (42-52) % MCV (80-100) fL MCH (25-34) pg MCHC (32-36) g/dL RDW Std Deviation (36.4-46.3) fL RDW Coeff of Briana (11.5-14.5) % Plt Count (130-400) K/uL MPV (7.4-10.4) fL Immature Gran % (Auto) % Neut % (Auto) % Lymph % (Auto) % [place] % (Auto) % Eos % (Auto) % Baso % (Auto) % Neut # (Auto) (1.4-6.5) K/uL Lymph # (Auto) (1.2-3.4) K/uL [place] # (Auto) (0.11-0.59) K/uL Eos # (Auto) (0-0.5) K/uL Baso # (Auto) (0-0.2) K/uL Immature Gran # (Auto) (0.00-0.02) K/uL Anisocytosis Sodium 134 L (136-145) mmol/L Potassium 4.5 (3.5-5.1) mmol/L Chloride 101 (98-107) mmol/L Carbon Dioxide 29 (21-32) mmol/L Anion Gap 4 (3-11) BUN 17 (6-23) mg/dl Creatinine Cancelled 0.59 L D (0.6-1.4) mg/dl Est Cr Clr Drug Dosing Cancelled 132.3 ml/min Est GFR ( Amer) Cancelled 132.1 ml/min Est GFR (Non-Af Amer) Cancelled 114.0 ml/min BUN/Creatinine Ratio 28.8 H (10-20) Glucose 135 H (70-99(Fasting)) mg/dl POC Glucose 142 H (70-99) mg/dl Calcium 7.9 L (8.5-10.1) mg/dl Blood Type Antibody Screen Crossmatch 08/24/21 08/23/21 08/23/21 Range/Units 05:46 20:18 17:43 WBC 13.84 H (4.8-10.8) K/uL RBC 3.38 L (4.7-6.1) M/uL Hgb 9.4 L (14.0-18.0) g/dL Hct 29.0 L (42-52) % MCV 85.8 (80-100) fL MCH 27.8 (25-34) pg MCHC 32.4 (32-36) g/dL RDW Std Deviation 70.7 H (36.4-46.3) fL RDW Coeff of Briana 22.0 H (11.5-14.5) % Plt Count 188 D (130-400) K/uL MPV 8.2 (7.4-10.4) fL Immature Gran % (Auto) 0.4 % Neut % (Auto) 86.0 % Lymph % (Auto) 3.8 % [place] % (Auto) 9.7 % Eos % (Auto) 0.0 % Baso % (Auto) 0.1 % Neut # (Auto) 11.92 H (1.4-6.5) K/uL Lymph # (Auto) 0.52 L (1.2-3.4) K/uL [place] # (Auto) 1.34 H (0.11-0.59) K/uL Eos # (Auto) 0.00 (0-0.5) K/uL Baso # (Auto) 0.01 (0-0.2) K/uL Immature Gran # (Auto) 0.05 H (0.00-0.02) K/uL Anisocytosis Present Sodium (136-145) mmol/L Potassium (3.5-5.1) mmol/L Chloride (98-107) mmol/L Carbon Dioxide (21-32) mmol/L Anion Gap (3-11) BUN (6-23) mg/dl Creatinine (0.6-1.4) mg/dl Est Cr Clr Drug Dosing ml/min Est GFR ( Amer) ml/min Est GFR (Non-Af Amer) ml/min BUN/Creatinine Ratio (10-20) Glucose (70-99(Fasting)) mg/dl POC Glucose 137 H 192 H (70-99) mg/dl Calcium (8.5-10.1) mg/dl Blood Type Antibody Screen Crossmatch 08/23/21 08/23/21 08/23/21 Range/Units 13:57 11:26 02:56 WBC (4.8-10.8) K/uL RBC (4.7-6.1) M/uL Hgb 7.1 L (14.0-18.0) g/dL Hct 22.2 L (42-52) % MCV (80-100) fL MCH (25-34) pg MCHC (32-36) g/dL RDW Std Deviation (36.4-46.3) fL RDW Coeff of Briana (11.5-14.5) % Plt Count (130-400) K/uL MPV (7.4-10.4) fL Immature Gran % (Auto) % Neut % (Auto) % Lymph % (Auto) % [place] % (Auto) % Eos % (Auto) % Baso % (Auto) % Neut # (Auto) (1.4-6.5) K/uL Lymph # (Auto) (1.2-3.4) K/uL [place] # (Auto) (0.11-0.59) K/uL Eos # (Auto) (0-0.5) K/uL Baso # (Auto) (0-0.2) K/uL Immature Gran # (Auto) (0.00-0.02) K/uL Anisocytosis Sodium (136-145) mmol/L Potassium (3.5-5.1) mmol/L Chloride (98-107) mmol/L Carbon Dioxide (21-32) mmol/L Anion Gap (3-11) BUN (6-23) mg/dl Creatinine (0.6-1.4) mg/dl Est Cr Clr Drug Dosing ml/min Est GFR ( Amer) ml/min Est GFR (Non-Af Amer) ml/min BUN/Creatinine Ratio (10-20) Glucose (70-99(Fasting)) mg/dl POC Glucose 161 H (70-99) mg/dl Calcium (8.5-10.1) mg/dl Blood Type A Positive Antibody Screen NEGATIVE Crossmatch See Detail PG Care Time/CCT Total # of Minutes Spent Total Time Spent with Patient: Total time spent is greater than 50% in coordination of care (as documented) at patient's floor/unit and/or counseling patient: Coding Level of Care Code 48171 Subseq Hosp Care Lvl 3 Diagnoses Esophageal carcinoma C15.9 Acute blood loss anemia D62
--- NOTE | 2021-08-24 08:19 | Surgery Progress Note ---
Date of Service August 24, 2021 Assessment & Plan (1) Acute blood loss anemia: Plan: doing better. hg now over 9. will monitor still keep GEORGE pt high risk for ileus...distended... keep on clears for now d/c koo. ambulate today. not ready for d/c. (2) S/P exploratory laparotomy: (3) Anemia: (4) Esophageal carcinoma: Admission and Anticipated Discharge Date Admission Date: August 23, 2021 Subjective pt seen. feeling better today. does admit to some incisional pain. no appetite. Physical Exam Physical Exam: alert. nad abd: soft. distended. GEORGE with sanguinous output. Results & Data ([facility]) Vital Signs (Past 12 Hours) Vital Signs Temp Pulse Pulse Resp BP BP Pulse Ox 08/24/21 07:39 37.1 C 110 H 16 153/82 H 91 08/24/21 03:06 37.1 C 116 H 20 135/80 90 08/24/21 01:28 37.5 C 116 H 16 152/83 H 92 08/24/21 00:05 37.5 C 114 H 18 153/81 H 08/24/21 00:00 116 H 08/23/21 23:05 37.3 C 114 H 18 146/81 H 93 08/23/21 22:35 37.2 C 115 H 18 154/88 H 92 08/23/21 22:20 37 C 117 H 18 146/75 H 94 08/23/21 22:03 37.1 C 120 H 18 144/77 H 94 08/23/21 21:37 36.6 C 115 H 18 152/82 H 96 08/23/21 21:20 36.8 C 117 H 18 139/75 96 08/23/21 20:20 36.6 C 115 H 18 150/84 H 96 PG Care Time/CCT Total # of Minutes Spent Total Time Spent with Patient: Total time spent is greater than 50% in coordination of care (as documented) at patient's floor/unit and/or counseling patient: Coding Level of Care Code None Diagnoses Acute blood loss anemia D62 S/P exploratory laparotomy Z98.890 Anemia D64.9 Esophageal carcinoma C15.9
--- NOTE | 2021-08-24 08:37 | Consultation Report ---
MEDICAL ONCOLOGY CONSULTATION DATE OF SERVICE: 08/23/2021. REASON FOR CONSULTATION: Retroperitoneal bleed. HISTORY OF PRESENT ILLNESS: Mr. Zhang is a very pleasant 55-year-old gentleman with recent diagnosis of gastric/esophageal cancer, follows with me at [facility], on the verge of receiving salvage chemotherapy consisting of docetaxel and cisplatin. He had contacted me on the night of admission complaining of vague abdominal pain, cramps and what he felt was constipated-type symptoms. I recommended that he go to the Emergency Room because of it was late into the evening and initially presented at [facility]. CT scan revealed a fluid collection necessitating transfer to [facility] where he was taken to the operating room by Dr. Pederson who had placed a left subclavian MediPort and a jejunostomy tube via laparoscopic approach. Dr. Pederson subsequently repaired an umbilical hernia at the same time. The patient was initially doing well postoperatively; however, in the course of the evening following surgery, pain became more severe, hence his contacted me at home. Mr. Zhang unfortunately was recently diagnosed with poorly differentiated adenocarcinoma, I believe, primary gastric, which extends into the distal esophagus. Radiographic studies indicate a significant gastric mucosal involvement and regional lymphadenopathy. Thus, the therapeutic approach of chemotherapy upfront followed by perhaps chemoradiation moving forward. Mr. Zhang was emergently taken to the operating room where 1800 mL of blood and debris was removed. This was an open procedure and thus requires a healing time before considering chemotherapy. The patient was found to be profoundly anemic and received transfusional support. Again, I have been asked to discuss when it would be appropriate to initiate chemotherapy. PAST MEDICAL HISTORY: Significant for poorly differentiated adenocarcinoma of the stomach, gastritis, GERD, iron-deficiency anemia, left inguinal hernia and umbilical hernia. PAST SURGICAL HISTORY: Status post EGD, hernia repair, rotator cuff repair, wisdom teeth removed. MEDICATIONS PRIOR TO ADMISSION: Include Zofran 8 mg p.o. q.8 hours p.r.n., olanzapine 2.5 mg p.o. as directed, Carafate 1 gram p.o. b.i.d., MiraLax 17 g p.o. daily, Protonix 40 mg p.o. daily, oxycodone 5 mg p.o. q.4 hours p.r.n., omeprazole 20 mg p.o. daily, multivitamin 1 tablet p.o. daily, Marinol 5 mg p.o. b.i.d. ALLERGIES: No known drug allergies. FAMILY HISTORY: Father suffered from prostate cancer. Paternal grandmother suffered and succumbed to lung cancer. SOCIAL HISTORY: The patient is . 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 He is a frequent user of marijuana, but is a nonsmoker. Positive for social alcohol intake, mostly beer. REVIEW OF SYSTEMS: As per HPI. PHYSICAL EXAMINATION: GENERAL: Very pleasant 55-year-old gentleman, awake, alert and appropriate, in no acute distress. VITAL SIGNS: Temperature 37.1, pulse 116, respiratory rate 20, blood pressure 135/80. SKIN: Warm, dry, noncyanotic without petechia, rash or ecchymosis. HEENT: Oral mucosa without erythema or ulceration. NECK: Supple. HEART: Tachy, but regular. LUNGS: Clear to auscultation. ABDOMEN: Sterile dressing over the surgical wound. Abdomen is otherwise soft. EXTREMITIES: No clubbing, cyanosis or edema. Pulses and strength are intact in all 4 quadrants. NEUROLOGIC: He is awake, alert and oriented x3. Cranial nerves are grossly intact. LABORATORY DATA: WBC count 13,840, hemoglobin 9.4, platelet count 188,000. Sodium 134, potassium 4.5, chloride 101, carbon dioxide 29, creatinine 0.59. IMPRESSION: 1. Acute blood loss anemia. 2. Poorly differentiated adenocarcinoma of the stomach. 3. Iron-deficiency anemia. 4. Gastroesophageal reflux disease. PLAN: In summary, Mr. Zhang is a very pleasant, unfortunate 55-year-old gentleman with locally advanced stomach cancer. His case has been reviewed at tumor board, and it was decided to proceed with salvage chemotherapy because of the large treatment field without intervening with chemo initially. After 3-4 cycles, would reevaluate radiographically to see if the treatment field is effectively reduced to consider then a chemoradiation approach. This gentleman's gastric mucosa is significantly involved by PET despite the fact that gastric biopsies were negative. Perhaps radiographic findings may represent a linitis plastica, which is infiltration of cancer within the lining of the stomach, difficult to detect by mucosal biopsy. That said, unfortunately, this will set Mr. Zhang back and we will have to wait to initiate treatment at least 1 week, perhaps 2. MediPort is in place. I have nothing further to add. Maintain hemoglobin above 8 g/dL during the hospital stay. We will make sure Mr. Zhang has expedient followup on discharge. I will continue to follow him periodically during the hospitalization. Job ID: [id number]
[2021-08-24 08:43] LABS: Iron 18 mcg/dl (35-175); Total Iron Binding Cap Calc 257 mcg/dl (250-450); Transferrin (FE) Percent Satur 7 % (20-50); Unsaturated Iron Binding Cap 239 mcg/dl (155-355)
[2021-08-24] MEDS: INSULIN ASPART PER UNIT SC SCH ×4 (08:56→20:36)
[2021-08-24] MEDS: LACTATED RINGER'S 1,000 ML IV SCH ×2 (09:22→22:31)
[2021-08-24 09:36] LABS: Albumin Level 3.2 gm/dl (3.4-5.0); Magnesium 2.5 mg/dl (1.7-2.4)
[2021-08-24] MEDS ORDERED: IRON SUCROSE 300 MG in SODIUM CHLORIDE 0.9% 250 ML IV ONE (10:00)
[2021-08-24] MEDS: PANTOprazole 40 MG in SYRINGE 0 ML IV SCH (10:45)
--- NOTE | 2021-08-24 10:46 | XRay Report ---
KUB HISTORY: abd distention, pain, increased GEORGE output COMPARISON: Outside hospital abdomen and pelvis CT 08/22/2021. FINDINGS: Midline skin marcos are noted. Multiple dilated gas-filled loops of large and small bowel seen throughout the abdomen. This favors a postoperative ileus. There is a surgical drain terminating within the left lower quadrant. There is a left-sided jejunostomy tube which appears unchanged in po sition. Bibasilar linear densities favor subsegmental atelectasis. No renal calculi. No ureteral juan culi. No pneumoperitoneum or pneumatosis. IMPRESSION: Multiple dilated gas-filled loops of large and small bowel seen throughout the abdomen. This favors a postoperative ileus. ACT 112: Negative or not required by law. Electronically signed by: Adithya Ngo M.D. 08/24/2021 10:44 AM
[2021-08-24 14:20] LABS: Hematocrit (blood only) 29.9 % (42-52); Hemoglobin 9.7 g/dL (14.0-18.0)
[2021-08-25] MEDS: MoRPHine SULFATE 4 MG/ML 1 ML CARP\\VIAL IV PRN ×2 (02:47→05:52)
[2021-08-25 06:17] LABS: Hematocrit (blood only) 31.4 % (42-52); Hemoglobin 10.2 g/dL (14.0-18.0); Immature Granulocytes # (auto) 0.02 K/uL (0.00-0.02); Immature Granulocytes % (auto) 0.1 %; Lymphocytes # (auto) 0.64 K/uL (1.2-3.4); Lymphocytes % (auto) 3.9 %; Mean Corpuscular Hemoglobin 28.3 pg (25-34); Mean Corpuscular Hgb Conc 32.5 g/dL (32-36); Mean Platelet Volume 8.3 fL (7.4-10.4); Monocytes # (auto) 1.52 K/uL (0.11-0.59); Monocytes % (auto) 9.2 %; Neutrophils % (auto) 86.8 %; Platelet Count 258 K/uL (130-400); RDW Coefficient of Variation 21.2 % (11.5-14.5); RDW Standard Deviation 68.4 fL (36.4-46.3); Red Blood Count 3.61 M/uL (4.7-6.1); White Blood Count 16.58 K/uL (4.8-10.8)
[2021-08-25 06:34] LABS: BUN Creatinine Ratio 42.9 (10-20); Calcium 8.2 mg/dl (8.5-10.1); Creatinine Clr Calc Pharmacy 159.3 ml/min; Est GFR (African American) 142.6 ml/min; Potassium 4.4 mmol/L (3.5-5.1)
[2021-08-25 07:27] LABS: Hypochromasia Present
[2021-08-25] MEDS ORDERED: HYDROmorphone INJ 1 MG/ML SYRINGE IV PRN (07:27)
--- NOTE | 2021-08-25 07:31 | Surgery Progress Note ---
Date of Service August 25, 2021 Assessment & Plan (1) Acute blood loss anemia: Plan: H/H increasing. no evidence of bleeding. keep GEORGE due to high serous output. leukocytosis... afebrile. no clinical sign of infection. ? secondary to transfusion. will monitor. likely ileus. sips/chips for comfort only. ambulate. limit narcotic use. current morphine not working will try dilaudid. IF symptoms worsen may need to place NGT. (2) S/P exploratory laparotomy: Admission and Anticipated Discharge Date Admission Date: August 23, 2021 Subjective pt seen. feeling miserable. primarily b/c of abdominal distension. mild nausea. some incisional discomfort. no flatus or bm Physical Exam Physical Exam: alert abd: increased distension. GEORGE serous. wound c/d/I. jejunostomy tube intact Results & Data ([facility]) Vital Signs (Past 12 Hours) Vital Signs Temp Pulse Pulse Resp BP BP Pulse Ox 08/25/21 07:26 37.0 C 117 H 16 165/94 H 96 08/25/21 03:07 37.1 C 114 H 18 150/97 H 95 08/25/21 01:58 103 H 08/24/21 23:09 37.3 C 115 H 18 163/92 H 92 PG Care Time/CCT Total # of Minutes Spent Total Time Spent with Patient: Total time spent is greater than 50% in coordination of care (as documented) at patient's floor/unit and/or counseling patient: Coding Level of Care Code None Diagnoses Acute blood loss anemia D62 S/P exploratory laparotomy Z98.890
--- NOTE | 2021-08-25 07:55 | Hospitalist Progress Note ---
Date of Service August 25, 2021 Assessment & Plan (1) Esophageal carcinoma: Plan: This is a 55-year-old gentleman with a history of esophageal cancer. Patient follows at [facility] with Dr. Cruzito Ritter of hematology oncology. The patient was to have chemotherapy initiated on 08/23/2021 (which is today) and follow-up chemotherapy consideration was being given to having patient undergo radiation therapy. Once these modalities were complete accor ding to the patient and his consideration was going to be given to having the patient be evaluated by thoracic surgeon for consideration of esophagectomy. Pt presented with abdominal pain and abnormal imaging suggestion some free fluid in the abdomen, was taken to the OR overnight for washout. The results of the laparotomy revealed 1800cc of bloody liquid and clot material believed to be coming from a muscle at the site of the jejunostomy. A drain was placed POD#2 mediport placement, umbilical hernia repair, lap jejunostomy tube placement complicated by postop bleeding now POD#1 exlap and abdominal washout with evacuation of hematoma s/p 2 u PRBC for drop in hgb to 7.1 --> 9.4 Hgb 10.2 today but also getting Iron (GEORGE output 1100cc from yesterday through today, additional 290cc today but slightly less bloody) ZOsyn IV, discontinued last evening Diet per surgery -- clears ordered but does have ileus. Ambulation encouraged NGT if vomiting IVF @ 75cc/hr PT/OT/pain management/DVT prophylaxis (SCDs) per primary service Heme/Onc on consult-- rec checking iron studies * --> Low and replacement has been ordered, hgb stable. (2nd dose venofer 08/25 for iron 18/trans % sat 7%) * --> Need TPN assessment and may need to start prior to starting chemo per Dr. Ritter. Consultation placed. Discretion per primary as they would like to wait another day or so per discussion 08/25 * --> Start chemo laila outpatient in next 1-2 weeks Leukocytosis --> WBC elevated to 16k. Afebrile * --> no hypoxia, urinary symptoms but could be reactive from anemia vs ileus/surgery. * --> Check UA for completeness, CXR if develops symptoms but suspect atelectasis from not taking deep breaths as well * --> Asked RN to give IS to patient as had not been using --> was using later in the day when seen * Continue to monitor Per heme/onc, would like to d/c laila, but ensure patient safe to do such (2) Acute blood loss anemia: Plan: Patient with postoperative acute blood loss anemia likely from his large hematoma found in the abdomen. s/p 2 u PRBC 08/23 for hgb drop to 7.1 --> 9.4 on repeat Will check Iron panel --> Venofer 300mg IV 08/24, repeated 08/25 and will give third dose 08/26 hgb 10.2 Plan: SCDs for DVT prophylaxis, chemoproph held in setting of acute blood loss/bleeding KUB for possible obstruction, NGT if nausea/vomiting Management per general surgery Admission and Anticipated Discharge Date Admission Date: August 23, 2021 Supervising Physician Co-Signing Physician Notes Attending Attestation - Chart reviewed, care plan d/w HERMILA Du. I agree w/ the cruz components of her documentation. Aleks House MD Subjective patient seen this morning still quite uncomfortable and defeated but was up and standing outside bed discussed to continue IS -- none at bedside and RN to provide (examined using later) not much appetite/PO intake and encouraged ambulation. no flatus or BM yet. Discussed consultation with nutrition for possible assessment for TPN prior to discharge. No fever, chills, chest pain. +SOB with inspiration 2nd to splinting from abd pain. Coughing worsening his R inguinal hernia and he was reducing this when I went into the room. Questions addressed at this time. Review of Systems Review of Systems: All systems reviewed & are unremarkable except as noted in HPI & below Physical Exam Physical Exam: General: WD male, mild distress/reducing R inguinal hernia, standing at bedside Eyes anicteric, pupils equal/reactive Mouth:slightly dry mm Chest: port to L chest, covered by tegaderm, minimal dried blood/appropriately tender Resp: occasional cough, not tachypneic, no accessory muscle use, diminished in the bases with associated crackles, no wheezing, on room air 93% CV: regular rhythm, tachycardic (104bpm), no m/r/g, no edema, pulses palpable GI: hypoactive/absent BS, tender to palpation about surgical incision, voluntary guarding/no rebound, J tube in place, splintering with cough. GEORGE with serous/bloody drainage Ext/MSK: no focal deficits, CN intact Psych: alert, oriented, cooperative Results & Data Results & Data ([facility]) Vital Signs (Past 12 Hours) Vital Signs Temp Pulse Pulse Resp BP BP Pulse Ox 08/25/21 07:49 106 H 08/25/21 07:26 37.0 C 117 H 16 165/94 H 96 08/25/21 03:07 37.1 C 114 H 18 150/97 H 95 08/25/21 01:58 103 H 08/24/21 23:09 37.3 C 115 H 18 163/92 H 92 Laboratory Results 08/25/21 08/25/21 08/24/21 Range/Units 05:46 05:46 20:15 WBC 16.58 H (4.8-10.8) K/uL RBC 3.61 L (4.7-6.1) M/uL Hgb 10.2 L (14.0-18.0) g/dL Hct 31.4 L (42-52) % MCV 87.0 (80-100) fL MCH 28.3 (25-34) pg MCHC 32.5 (32-36) g/dL RDW Std Deviation 68.4 H (36.4-46.3) fL RDW Coeff of Briana 21.2 H (11.5-14.5) % Plt Count 258 (130-400) K/uL MPV 8.3 (7.4-10.4) fL Immature Gran % (Auto) 0.1 % Neut % (Auto) 86.8 % Lymph % (Auto) 3.9 % [place] % (Auto) 9.2 % Eos % (Auto) 0.0 % Baso % (Auto) 0.0 % Neut # (Auto) 14.40 H (1.4-6.5) K/uL Lymph # (Auto) 0.64 L (1.2-3.4) K/uL [place] # (Auto) 1.52 H (0.11-0.59) K/uL Eos # (Auto) 0.00 (0-0.5) K/uL Baso # (Auto) 0.00 (0-0.2) K/uL Immature Gran # (Auto) 0.02 (0.00-0.02) K/uL Hypochromasia Present Sodium 134 L (136-145) mmol/L Potassium 4.4 (3.5-5.1) mmol/L Chloride 100 (98-107) mmol/L Carbon Dioxide 28 (21-32) mmol/L Anion Gap 6 (3-11) BUN 21 (6-23) mg/dl Creatinine 0.49 L (0.6-1.4) mg/dl Est Cr Clr Drug Dosing 159.3 ml/min Est GFR ( Amer) 142.6 ml/min Est GFR (Non-Af Amer) 123.0 ml/min BUN/Creatinine Ratio 42.9 H (10-20) Glucose 138 H (70-99(Fasting)) mg/dl POC Glucose 131 H (70-99) mg/dl Calcium 8.2 L (8.5-10.1) mg/dl Magnesium (1.7-2.4) mg/dl Iron (35-175) mcg/dl TIBC (250-450) mcg/dl Unsaturated IBC (155-355) mcg/dl Transferrin % Sat (20-50) % Albumin (3.4-5.0) gm/dl 08/24/21 08/24/21 08/24/21 Range/Units 16:59 14:05 11:20 WBC (4.8-10.8) K/uL RBC (4.7-6.1) M/uL Hgb 9.7 L (14.0-18.0) g/dL Hct 29.9 L (42-52) % MCV (80-100) fL MCH (25-34) pg MCHC (32-36) g/dL RDW Std Deviation (36.4-46.3) fL RDW Coeff of Briana (11.5-14.5) % Plt Count (130-400) K/uL MPV (7.4-10.4) fL Immature Gran % (Auto) % Neut % (Auto) % Lymph % (Auto) % [place] % (Auto) % Eos % (Auto) % Baso % (Auto) % Neut # (Auto) (1.4-6.5) K/uL Lymph # (Auto) (1.2-3.4) K/uL [place] # (Auto) (0.11-0.59) K/uL Eos # (Auto) (0-0.5) K/uL Baso # (Auto) (0-0.2) K/uL Immature Gran # (Auto) (0.00-0.02) K/uL Hypochromasia Sodium (136-145) mmol/L Potassium (3.5-5.1) mmol/L Chloride (98-107) mmol/L Carbon Dioxide (21-32) mmol/L Anion Gap (3-11) BUN (6-23) mg/dl Creatinine (0.6-1.4) mg/dl Est Cr Clr Drug Dosing ml/min Est GFR ( Amer) ml/min Est GFR (Non-Af Amer) ml/min BUN/Creatinine Ratio (10-20) Glucose (70-99(Fasting)) mg/dl POC Glucose 141 H 144 H (70-99) mg/dl Calcium (8.5-10.1) mg/dl Magnesium (1.7-2.4) mg/dl Iron (35-175) mcg/dl TIBC (250-450) mcg/dl Unsaturated IBC (155-355) mcg/dl Transferrin % Sat (20-50) % Albumin (3.4-5.0) gm/dl 08/24/21 08/24/21 Range/Units 08:02 05:46 WBC (4.8-10.8) K/uL RBC (4.7-6.1) M/uL Hgb (14.0-18.0) g/dL Hct (42-52) % MCV (80-100) fL MCH (25-34) pg MCHC (32-36) g/dL RDW Std Deviation (36.4-46.3) fL RDW Coeff of Briana (11.5-14.5) % Plt Count (130-400) K/uL MPV (7.4-10.4) fL Immature Gran % (Auto) % Neut % (Auto) % Lymph % (Auto) % [place] % (Auto) % Eos % (Auto) % Baso % (Auto) % Neut # (Auto) (1.4-6.5) K/uL Lymph # (Auto) (1.2-3.4) K/uL [place] # (Auto) (0.11-0.59) K/uL Eos # (Auto) (0-0.5) K/uL Baso # (Auto) (0-0.2) K/uL Immature Gran # (Auto) (0.00-0.02) K/uL Hypochromasia Sodium (136-145) mmol/L Potassium (3.5-5.1) mmol/L Chloride (98-107) mmol/L Carbon Dioxide (21-32) mmol/L Anion Gap (3-11) BUN (6-23) mg/dl Creatinine (0.6-1.4) mg/dl Est Cr Clr Drug Dosing ml/min Est GFR ( Amer) ml/min Est GFR (Non-Af Amer) ml/min BUN/Creatinine Ratio (10-20) Glucose (70-99(Fasting)) mg/dl POC Glucose (70-99) mg/dl Calcium (8.5-10.1) mg/dl Magnesium 2.5 H (1.7-2.4) mg/dl Iron 18 L (35-175) mcg/dl TIBC 257 (250-450) mcg/dl Unsaturated IBC 239 (155-355) mcg/dl Transferrin % Sat 7 L (20-50) % Albumin 3.2 L (3.4-5.0) gm/dl PG Care Time/CCT Total # of Minutes Spent Total Time Spent with Patient: Total time spent is greater than 50% in coordination of care (as documented) at patient's floor/unit and/or counseling patient: Coding Level of Care Code 56939 Subseq Hosp Care Lvl 3 Diagnoses Esophageal carcinoma C15.9 Acute blood loss anemia D62
[2021-08-25] MEDS ORDERED: hydrALAZINE HCL 20 MG/ML VIAL IV PRN (07:59)
[2021-08-25] MEDS ORDERED: TPN/PPN CONSULT PHARMACY PRN (08:07)
[2021-08-25] MEDS: INSULIN ASPART PER UNIT SC SCH ×4 (08:56→21:17)
[2021-08-25] MEDS ORDERED: IRON SUCROSE 300 MG in SODIUM CHLORIDE 0.9% 250 ML IV ONE (09:00)
[2021-08-25] MEDS: PANTOprazole 40 MG in SYRINGE 0 ML IV SCH (11:29)
[2021-08-25] MEDS: LACTATED RINGER'S 1,000 ML IV SCH (11:34)
[2021-08-25 17:11] LABS: Appearance Urine Clear (Clear); Bacteria Urine Automated Negative (Negative); Blood Urine 1+ (Negative); Color Urine Orange; Glucose Urine UA Negative (Negative); Ketones Urine 3+ (Negative); Leukocyte Esterase Urine Negative (Negative); Nitrite Urine Negative (Negative); Protein Urine 2+ (Negative); Specific Gravity Urine 1.041 (1.000-1.030); Urobilinogen Urine Negative (Negative); pH Urine 5.5 (4.5-7.5)
[2021-08-25 17:15] LABS: Bilirubin Urine 1+ (Negative)
[2021-08-25 17:23] LABS: Cast Urine Automated 0 /lpf (0-5); Mucus Urine Present (None Prsent)
[2021-08-26] MEDS: LACTATED RINGER'S 1,000 ML IV SCH ×5 (00:45→20:37)
[2021-08-26 06:26] LABS: Basophils # (auto) 0.01 K/uL (0-0.2); Basophils % (auto) 0.1 %; Hematocrit (blood only) 30.2 % (42-52); Hemoglobin 9.4 g/dL (14.0-18.0); Immature Granulocytes # (auto) 0.03 K/uL (0.00-0.02); Immature Granulocytes % (auto) 0.2 %; Lymphocytes # (auto) 0.58 K/uL (1.2-3.4); Lymphocytes % (auto) 3.9 %; Mean Corpuscular Hemoglobin 27.9 pg (25-34); Mean Corpuscular Hgb Conc 31.1 g/dL (32-36); Mean Corpuscular Volume 89.6 fL (80-100); Mean Platelet Volume 8.7 fL (7.4-10.4); Monocytes % (auto) 10.7 %; Neutrophils # (auto) 12.69 K/uL (1.4-6.5); Neutrophils % (auto) 85.1 %; Platelet Count 268 K/uL (130-400); RDW Coefficient of Variation 21.8 % (11.5-14.5); Red Blood Count 3.37 M/uL (4.7-6.1); White Blood Count 14.91 K/uL (4.8-10.8)
[2021-08-26 06:45] LABS: BUN Creatinine Ratio 56.5 (10-20); Calcium 8.4 mg/dl (8.5-10.1); Creatinine Clr Calc Pharmacy 169.6 ml/min; Est GFR (African American) 146.3 ml/min; Est GFR (Non-African American) 126.2 ml/min; Magnesium 2.2 mg/dl (1.7-2.4); Phosphorus 2.7 mg/dl (2.5-4.9); Potassium 4.5 mmol/L (3.5-5.1)
[2021-08-26 06:56] LABS: Anisocytosis Present; Polychromasia 1+
[2021-08-26] MEDS ORDERED: TPN/PPN CONSULT PHARMACY STA (07:39)
--- NOTE | 2021-08-26 07:42 | Hospitalist Progress Note ---
Date of Service August 26, 2021 Assessment & Plan (1) Esophageal carcinoma: Plan: This is a 55-year-old gentleman with a history of esophageal cancer. Patient follows at [facility] with Dr. Cruzito Ritter of hematology oncology. The patient was to have chemotherapy initiated on 08/23/2021 (which is today) and follow-up chemotherapy consideration was being given to having patient undergo radiation therapy. Once these modalities were complete accor ding to the patient and his consideration was going to be given to having the patient be evaluated by thoracic surgeon for consideration of esophagectomy. Pt presented with abdominal pain and abnormal imaging suggestion some free fluid in the abdomen, was taken to the OR overnight for washout. The results of the laparotomy revealed 1800cc of bloody liquid and clot material believed to be coming from a muscle at the site of the jejunostomy. A drain was placed POD#3 mediport placement, umbilical hernia repair, lap jejunostomy tube placement complicated by postop bleeding now POD#2 exlap and abdominal washout with evacuation of hematoma s/p 2 u PRBC for drop in hgb to 7.1 --> 9.4 Hgb 9.4, stable -- acute blood loss from about, GEORGE output slowing down Diet per surgery -- clears ordered but does have ileus. Ambulation encouraged NGT if vomiting Given senna by primary 08/26 PT/OT/pain management/DVT prophylaxis (SCDs) per primary service Heme/Onc on consult-- rec checking iron studies * --> Low and replacement has been ordered, hgb stable. * Venofer x 3 doses, completed 08/26 * --> Need TPN assessment and may need to start prior to starting chemo per Dr. Ritter. Consultation placed. Discretion per primary as they would like to wait another day or so per discussion 08/25 * --> Start chemo laila outpatient in next 1-2 weeks IVF @ 75cc/hr -- increased to 120cc/hr due to dehydration, and will plan to start TPN (discussed with nutrition 08/25 and they are already aware of possible start today) Leukocytosis --> WBC elevated to 16k but improved to 14.9k today Did have some hypoxia/crackles on exam Afebrile but will check CXR for completeness Continue IS -- given to patient 08/25 Continue to monitor electrolytes/replacement as needed (2) Acute blood loss anemia: Plan: Patient with postoperative acute blood loss anemia likely from his large hematoma found in the abdomen. s/p 2 u PRBC 08/23 for hgb drop to 7.1 --> 9.4 on repeat Will check Iron panel --> Venofer 300mg IV 08/24, repeated 08/25 hgb stable, decreased GEORGE output and giving 3rd dose Venofer 08/26 Plan: SCDs for DVT prophylaxis, chemoproph held in setting of acute blood loss/bleeding TPN to start today KUB for possible obstruction, NGT if nausea/vomiting Management per general surgery Admission and Anticipated Discharge Date Admission Date: August 23, 2021 Supervising Physician Co-Signing Physician Notes Attending Attestation - Chart reviewed, care plan d/w HERMILA Du. I agree w/ the cruz components of her documentation. Vital signs remain stable despite acute blood loss anemia. Aleks House MD Subjective patient evaluated this morning doing ok, decent amount of pain but hasn't taken anything for pain in past 24 hours. increased ambulation no flatus or BM yet taking some sips, seen by Dr Dunbar this morning and given some senna to help GI motilty. Pain NOT worse than days prior, just feeling tight. GEORGE drain output reported to be decreased per patient, has not needed emptied as frequently (currently with 50cc drainage in GEORGE). NO fever, chills but did endorse feeling a little sweaty at times. Hypoxic last night but didn't endorse any increased SOB. Discussed checking CXR but encouraged continued use of IS. Discussed starting TPN today. Questions/concerns addressed at this time. Review of Systems Review of Systems: All systems reviewed & are unremarkable except as noted in HPI & below Physical Exam Physical Exam: General: WD male, staning at side of bed, no acute distress, uncomfortable appearing Eyes anicteric, pupils equal/reactive Mouth:slightly dry mm Chest: port to L chest, covered by tegaderm, minimal dried blood/appropriately tender Resp: occasional cough, not tachypneic, no accessory muscle use, diminished in the bases with associated crackles RLL/RML, no wheezing, on room air 91% CV: regular rhythm, rate (98bpm), no m/r/g, no edema, pulses palpable GI: hypoactive/absent BS, tender to palpation about surgical incision, voluntary guarding/no rebound, J tube in place, splintering with cough. GEORGE with serous/bloody drainage, approximately 50cc Ext/MSK: no focal deficits, CN intact Psych: alert, oriented, cooperative Results & Data Results & Data ([facility]) Vital Signs (Past 12 Hours) Vital Signs Temp Pulse Pulse Resp BP BP Pulse Ox 08/26/21 07:35 96 H 08/26/21 07:15 36.9 C 113 H 18 167/88 H 91 08/26/21 03:31 36.9 C 115 H 18 159/92 H 95 08/26/21 00:00 100 H 08/25/21 22:33 37.2 C 108 H 18 151/85 H 93 Laboratory Results 08/26/21 08/26/21 08/26/21 Range/Units 07:36 05:50 05:50 WBC 14.91 H (4.8-10.8) K/uL RBC 3.37 L (4.7-6.1) M/uL Hgb 9.4 L (14.0-18.0) g/dL Hct 30.2 L (42-52) % MCV 89.6 (80-100) fL MCH 27.9 (25-34) pg MCHC 31.1 L (32-36) g/dL RDW Std Deviation 73.0 H (36.4-46.3) fL RDW Coeff of Briana 21.8 H (11.5-14.5) % Plt Count 268 (130-400) K/uL MPV 8.7 (7.4-10.4) fL Immature Gran % (Auto) 0.2 % Neut % (Auto) 85.1 % Lymph % (Auto) 3.9 % [place] % (Auto) 10.7 % Eos % (Auto) 0.0 % Baso % (Auto) 0.1 % Neut # (Auto) 12.69 H (1.4-6.5) K/uL Lymph # (Auto) 0.58 L (1.2-3.4) K/uL [place] # (Auto) 1.60 H (0.11-0.59) K/uL Eos # (Auto) 0.00 (0-0.5) K/uL Baso # (Auto) 0.01 (0-0.2) K/uL Immature Gran # (Auto) 0.03 H (0.00-0.02) K/uL Polychromasia 1+ Anisocytosis Present Sodium 137 (136-145) mmol/L Potassium 4.5 (3.5-5.1) mmol/L Chloride 103 (98-107) mmol/L Carbon Dioxide 27 (21-32) mmol/L Anion Gap 7 (3-11) BUN 26 H (6-23) mg/dl Creatinine 0.46 L (0.6-1.4) mg/dl Est Cr Clr Drug Dosing 169.6 ml/min Est GFR ( Amer) 146.3 ml/min Est GFR (Non-Af Amer) 126.2 ml/min BUN/Creatinine Ratio 56.5 H (10-20) Glucose 115 H (70-99(Fasting)) mg/dl POC Glucose 125 H (70-99) mg/dl Calcium 8.4 L (8.5-10.1) mg/dl Phosphorus 2.7 (2.5-4.9) mg/dl Magnesium 2.2 (1.7-2.4) mg/dl Urine Color Urine Appearance (Clear) Urine pH (4.5-7.5) Ur Specific [place] (1.000-1.030) Urine Protein (Negative) Urine Glucose (UA) (Negative) Urine Ketones (Negative) Urine Blood (Negative) Urine Nitrite (Negative) Urine Bilirubin (Negative) Urine Urobilinogen (Negative) Ur Leukocyte Esterase (Negative) Urine WBC (Auto) (0-5) /hpf Urine RBC (Auto) (0-4) /hpf U Hyaline Cast (Auto) (0-5) /lpf U Epithel Cells (Auto) (0-5) /lpf Urine Bacteria (Auto) (Negative) Urine Mucus (None Prsent) 08/25/21 08/25/21 08/25/21 Range/Units 20:30 16:45 11:07 WBC (4.8-10.8) K/uL RBC (4.7-6.1) M/uL Hgb (14.0-18.0) g/dL Hct (42-52) % MCV (80-100) fL MCH (25-34) pg MCHC (32-36) g/dL RDW Std Deviation (36.4-46.3) fL RDW Coeff of Briana (11.5-14.5) % Plt Count (130-400) K/uL MPV (7.4-10.4) fL Immature Gran % (Auto) % Neut % (Auto) % Lymph % (Auto) % [place] % (Auto) % Eos % (Auto) % Baso % (Auto) % Neut # (Auto) (1.4-6.5) K/uL Lymph # (Auto) (1.2-3.4) K/uL [place] # (Auto) (0.11-0.59) K/uL Eos # (Auto) (0-0.5) K/uL Baso # (Auto) (0-0.2) K/uL Immature Gran # (Auto) (0.00-0.02) K/uL Polychromasia Anisocytosis Sodium (136-145) mmol/L Potassium (3.5-5.1) mmol/L Chloride (98-107) mmol/L Carbon Dioxide (21-32) mmol/L Anion Gap (3-11) BUN (6-23) mg/dl Creatinine (0.6-1.4) mg/dl Est Cr Clr Drug Dosing ml/min Est GFR ( Amer) ml/min Est GFR (Non-Af Amer) ml/min BUN/Creatinine Ratio (10-20) Glucose (70-99(Fasting)) mg/dl POC Glucose 127 H 125 H (70-99) mg/dl Calcium (8.5-10.1) mg/dl Phosphorus (2.5-4.9) mg/dl Magnesium (1.7-2.4) mg/dl Urine Color [place] Urine Appearance Clear (Clear) Urine pH 5.5 (4.5-7.5) Ur Specific [place] 1.041 H (1.000-1.030) Urine Protein 2+ H (Negative) Urine Glucose (UA) Negative (Negative) Urine Ketones 3+ H (Negative) Urine Blood 1+ H (Negative) Urine Nitrite Negative (Negative) Urine Bilirubin 1+ H (Negative) Urine Urobilinogen Negative (Negative) Ur Leukocyte Esterase Negative (Negative) Urine WBC (Auto) 1-5 (0-5) /hpf Urine RBC (Auto) 10-30 H (0-4) /hpf U Hyaline Cast (Auto) 0 (0-5) /lpf U Epithel Cells (Auto) 10-20 H (0-5) /lpf Urine Bacteria (Auto) Negative (Negative) Urine Mucus Present A (None Prsent) 08/25/21 Range/Units 08:50 WBC (4.8-10.8) K/uL RBC (4.7-6.1) M/uL Hgb (14.0-18.0) g/dL Hct (42-52) % MCV (80-100) fL MCH (25-34) pg MCHC (32-36) g/dL RDW Std Deviation (36.4-46.3) fL RDW Coeff of Briana (11.5-14.5) % Plt Count (130-400) K/uL MPV (7.4-10.4) fL Immature Gran % (Auto) % Neut % (Auto) % Lymph % (Auto) % [place] % (Auto) % Eos % (Auto) % Baso % (Auto) % Neut # (Auto) (1.4-6.5) K/uL Lymph # (Auto) (1.2-3.4) K/uL [place] # (Auto) (0.11-0.59) K/uL Eos # (Auto) (0-0.5) K/uL Baso # (Auto) (0-0.2) K/uL Immature Gran # (Auto) (0.00-0.02) K/uL Polychromasia Anisocytosis Sodium (136-145) mmol/L Potassium (3.5-5.1) mmol/L Chloride (98-107) mmol/L Carbon Dioxide (21-32) mmol/L Anion Gap (3-11) BUN (6-23) mg/dl Creatinine (0.6-1.4) mg/dl Est Cr Clr Drug Dosing ml/min Est GFR ( Amer) ml/min Est GFR (Non-Af Amer) ml/min BUN/Creatinine Ratio (10-20) Glucose (70-99(Fasting)) mg/dl POC Glucose 144 H (70-99) mg/dl Calcium (8.5-10.1) mg/dl Phosphorus (2.5-4.9) mg/dl Magnesium (1.7-2.4) mg/dl Urine Color Urine Appearance (Clear) Urine pH (4.5-7.5) Ur Specific [place] (1.000-1.030) Urine Protein (Negative) Urine Glucose (UA) (Negative) Urine Ketones (Negative) Urine Blood (Negative) Urine Nitrite (Negative) Urine Bilirubin (Negative) Urine Urobilinogen (Negative) Ur Leukocyte Esterase (Negative) Urine WBC (Auto) (0-5) /hpf Urine RBC (Auto) (0-4) /hpf U Hyaline Cast (Auto) (0-5) /lpf U Epithel Cells (Auto) (0-5) /lpf Urine Bacteria (Auto) (Negative) Urine Mucus (None Prsent) PG Care Time/CCT Total # of Minutes Spent Total Time Spent with Patient: Total time spent is greater than 50% in coordination of care (as documented) at patient's floor/unit and/or counseling patient: Coding Level of Care Code 74166 Subseq Hosp Care Lvl 3 Diagnoses Esophageal carcinoma C15.9 Acute blood loss anemia D62
--- NOTE | 2021-08-26 07:42 | Surgery Progress Note ---
Date of Service August 26, 2021 Assessment & Plan (1) S/P exploratory laparotomy: Plan: Patient status post laparotomy with evacuation of intra-abdominal blood His H&H is stable Drain is serosanguineous/mostly serous He now has an ileus-has some hiccups and mild belching Some of this may be from the tumor We will begin TPN-try to avoid NG placement if we can-may require this if he begins to vomit We will try some senna syrup Dr. Diallo covering over the weekend Admission and Anticipated Discharge Date Admission Date: August 23, 2021 Results & Data ([facility]) Vital Signs (Past 12 Hours) Vital Signs Temp Pulse Pulse Resp BP BP Pulse Ox 08/26/21 07:35 96 H 08/26/21 07:15 36.9 C 113 H 18 167/88 H 91 08/26/21 03:31 36.9 C 115 H 18 159/92 H 95 08/26/21 00:00 100 H 08/25/21 22:33 37.2 C 108 H 18 151/85 H 93 PG Care Time/CCT Total # of Minutes Spent Total Time Spent with Patient: Total time spent is greater than 50% in coordination of care (as documented) at patient's floor/unit and/or counseling patient: Coding Level of Care Code None Diagnoses S/P exploratory laparotomy Z98.890
[2021-08-26] MEDS: INSULIN ASPART PER UNIT SC SCH ×4 (08:34→20:34)
[2021-08-26] MEDS: SENNOSIDES 8.8 MG/5 ML UDC PO SCH ×2 (09:10→20:34)
--- NOTE | 2021-08-26 11:22 | XRay Report ---
SINGLE VIEW CHEST CLINICAL HISTORY: Hypoxia FINDINGS: An AP, portable, upright chest radiograph is compared to study dated 08/23/2021. The examina tion is degraded by portable technique and apical lordotic positioning. A left subclavian central karli ous infusion port is unchanged in position. The heart is top normal for projection. The pulmonary vas culature is noncongested. There are trace pleural effusions with dependent atelectasis. No pneumothor ax is seen. The skeletal structures are osteopenic. The bony thorax is grossly intact. There is gaseo us distention of the stomach. IMPRESSION: Trace pleural effusions with dependent atelectasis. ACT 112: Negative or not required by law. Electronically signed by: Rodney Rapp M.D. 08/26/2021 11:21 AM
[2021-08-26] MEDS: PANTOprazole 40 MG in SYRINGE 0 ML IV SCH (11:36)
--- NOTE | 2021-08-26 11:57 | Pharmacy Report ---
Pharmacy PN Initial Consult - Date of Service August 26, 2021 - Scope Pharmacy has been consulted to manage parenteral nutrition orders and order appropriate labs. As part of the Nutrition Support Team guidelines, pharmacy will work in conjunction with dietary when determining the patients caloric needs. - Subjective The patient is a 55 year old M admitted on 08/23/21 04:33 for HEMOPERITONEUM. Patient is to receive parenteral nutrition for chronic malnutrition. Pertinent PMH: esophageal cancer - Objective Height: 5 ft 7 in Weight: 69.6 kg Intake & Output (Last 24Hrs): Intake & Output 08/24/21 08/25/21 08/26/21 08/27/21 06:59 06:59 06:59 06:59 Intake Total 3055.333 / 3055.333 2125.907 / 2125.907 2572.50 / 2572.50 924.75 / 924.75 Output Total 1415 / 1415 1900 / 1900 1040 / 1040 Balance 1640.333 / 1640.333 225.907 / 626.826 1928.50 / 1532.50 924.75 / 924.75 Weight 70.5 kg 67.2 kg 69.6 kg Laboratory Data (Last 24 Hrs):: 08/26/21 05:50 Sodium 137 Potassium 4.5 Chloride 103 Carbon Dioxide 27 BUN 26 H Creatinine 0.46 L Glucose 115 H Calcium 8.4 L Phosphorus 2.7 Magnesium 2.2 Nutrition Assessment:: Please refer to the Notes section of the EMR for the most recent keg raiser note. - Plan For day 1 of PN administration, the following will be ordered: Macronutrients Amino acids 58 grams/day Dextrose 101 grams/day Lipids 50 grams/day Micronutrients Combined electrolytes 20 mL - contains 35 mEq Na, 20 meq K, 4.5 mEq Ca, 5 mEq Mg, 35 mEq Cl, 29.5 mEq acetate per 20 mL Sodium phosphate 21 MMol Sodium chloride 20 mEq Sodium acetate -- mEq Potassium phosphate -- mMol Potassium chloride -- mEq Potassium acetate -- mEq Magnesium sulfate -- mEq Calcium gluconate -- mEq Multivitamins 10 mL Trace Elements 10 mL Additional additives: Total volume 766 mL to be infused over 24 hrs will provide 1075 kcal/day Labs to be ordered per PN order protocol Pharmacy will follow and adjust parenteral nutrition orders on a daily basis. Thank you.
[2021-08-26] MEDS ORDERED: HEPARIN 100 UNIT/ML 5ML FLUSH FLUSH PRN (13:48)
[2021-08-26] MEDS ORDERED: DEXTROSE 10% 1,000 ML IV PRN (16:00)
[2021-08-26] MEDS ORDERED: CLINOLIPID 20% IV FAT EMULSION 250 ML IV SCH (16:00)
[2021-08-26] MEDS ORDERED: AMINO ACID 8% IV SCH (16:00)
[2021-08-26] MEDS ORDERED: [UNRECOGNIZED DRUG - OTHER] IV SCH (16:00)
[2021-08-26] MEDS ORDERED: CENTRAL TPN IV SCH (16:00)
[2021-08-26] MEDS ORDERED: Nursing to Pharmacy Communication SCH (16:15)
[2021-08-26] MEDS ORDERED: STOP CLINOLIPID ONE (22:00)
[2021-08-27] MEDS: LACTATED RINGER'S 1,000 ML IV SCH ×2 (06:56→14:48)
[2021-08-27 07:03] LABS: Eosinophils # (auto) 0.07 K/uL (0-0.5); Eosinophils % (auto) 0.6 %; Hematocrit (blood only) 29.3 % (42-52); Hemoglobin 9.1 g/dL (14.0-18.0); Immature Granulocytes # (auto) 0.03 K/uL (0.00-0.02); Immature Granulocytes % (auto) 0.3 %; Lymphocytes # (auto) 0.89 K/uL (1.2-3.4); Lymphocytes % (auto) 7.8 %; Mean Corpuscular Hemoglobin 28.3 pg (25-34); Mean Corpuscular Hgb Conc 31.1 g/dL (32-36); Mean Corpuscular Volume 91.3 fL (80-100); Mean Platelet Volume 8.9 fL (7.4-10.4); Monocytes # (auto) 1.16 K/uL (0.11-0.59); Monocytes % (auto) 10.2 %; Neutrophils # (auto) 9.22 K/uL (1.4-6.5); Neutrophils % (auto) 81.1 %; Platelet Count 306 K/uL (130-400); RDW Coefficient of Variation 21.6 % (11.5-14.5); RDW Standard Deviation 73.2 fL (36.4-46.3); Red Blood Count 3.21 M/uL (4.7-6.1); White Blood Count 11.37 K/uL (4.8-10.8)
[2021-08-27 07:28] LABS: Anion Gap 6 (3-11); BUN Creatinine Ratio 64.9 (10-20); Blood Urea Nitrogen 24 mg/dl (6-23); Calcium 7.8 mg/dl (8.5-10.1); Carbon Dioxide 27 mmol/L (21-32); Chloride 105 mmol/L (98-107); Creatinine Clr Calc Pharmacy 210.9 ml/min; Est GFR (African American) > 150.0 ml/min; Est GFR (Non-African American) 138.1 ml/min; Glucose 139 mg/dl (70-99(Fasting)); Phosphorus 2.4 mg/dl (2.5-4.9); Potassium 3.8 mmol/L (3.5-5.1); Sodium 138 mmol/L (136-145)
[2021-08-27 07:29] LABS: Anisocytosis Present; Polychromasia 1+
[2021-08-27] MEDS: SENNOSIDES 8.8 MG/5 ML UDC PO SCH ×2 (07:31→20:29)
[2021-08-27] MEDS ORDERED: POTASSIUM CHLORIDE 20 MEQ in LACTATED RINGER'S 1,000 ML IV SCH (07:44)
--- NOTE | 2021-08-27 07:45 | Hospitalist Progress Note ---
Date of Service August 27, 2021 Assessment & Plan (1) Esophageal carcinoma: Plan: This is a 55-year-old gentleman with a history of esophageal cancer. Patient follows at [facility] with Dr. Cruzito Ritter of hematology oncology. The patient was to have chemotherapy initiated on 08/23/2021 (which is today) and follow-up chemotherapy consideration was being given to having patient undergo radiation therapy. Once these modalities were complete accor ding to the patient and his consideration was going to be given to having the patient be evaluated by thoracic surgeon for consideration of esophagectomy. Pt presented with abdominal pain and abnormal imaging suggestion some free fluid in the abdomen, was taken to the OR overnight for washout. The results of the laparotomy revealed 1800cc of bloody liquid and clot material believed to be coming from a muscle at the site of the jejunostomy. A drain was placed POD#4 mediport placement, umbilical hernia repair, lap jejunostomy tube placement complicated by postop bleeding now POD#3 exlap and abdominal washout with evacuation of hematoma s/p 2 u PRBC for drop in hgb to 7.1 --> 9.4 --> 9.1 on repeat but remains on IVF/TPN TPN initiated 08/[address] Dunbar. 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 -> Increased and asked to include more potassium as well as pepcid for additional reflux management (ordered dose IVP this morning) Dr Dunbar ordered senna liquid, does have some increase in BS but no flatus/BM yet per patient Limiting oral intake Encouraged ambulation WBC trending down, afebrile. CXR yesterday with atelectasis and encouraged continued use of incentive spirometer NGT if n/v but hoping to avoid Venofer x 3 doses, completed 08/26 for low iron --> Will need f/u heme/onc to initiate treatment in next 1-2 weeks once healed Labs/electrolyte replacement as needed (2) Acute blood loss anemia: Plan: Patient with postoperative acute blood loss anemia likely from his large hematoma found in the abdomen. s/p 2 u PRBC 08/23 for hgb drop to 7.1 --> 9.4 on repeat Will check Iron panel --> Venofer 300mg IV x 3 doses Hgb stable, remains on IVF (3) Acid reflux: Plan: increased belching/reflux on PPI IVP daily, added pepcid IVP x 1 08/27 and asked pharmacy to add to TPN Plan: SCDs for DVT prophylaxis, chemoproph held in setting of acute blood loss/bleeding continue TPN/ambulation/incentive spirometer await return of bowel function Admission and Anticipated Discharge Date Admission Date: August 23, 2021 Subjective patient evaluated this morning feeling alright, pain still present but does note improvement in pain since IV tylenol this morning still having occasional hiccups which have been bothersome. will try dose of pepcid, if ineffective will attempt additional medical intervention +nausea but no vomiting but feels like prior intake he had some regurgitation but hasn't take much of anything orally had been ambulating the halls, 6-7x yesterday no flatus or BM yet but does have increase in BS today. continued use of incentive spirometer tolerating TPN -- nutrition to increase potassium supplementation. Will monitor IVF/reduce when able and limit total volume to not more than 100cc/hr. questions/concerns addressed at this time. Review of Systems Review of Systems: All systems reviewed & are unremarkable except as noted in HPI & below Physical Exam Physical Exam: General: WD male, sitting in bed, no acute distress (just woke up from nap) Eyes anicteric, pupils equal/reactive Mouth:slightly dry mm (improved) Chest: port to L chest, covered by tegaderm and TPN infusing Resp: occasional cough, not tachypneic, no accessory muscle use, diminished in the bases with associated crackles RLL/RML (improved with cough), no wheezing, on room air 95% CV: regular rhythm, rate (98bpm), no m/r/g, no edema, pulses palpable GI: hypoactive, tender to palpation about surgical incision, voluntary guarding/no rebound, J tube in place, splintering with cough. GEORGE with serous/bloody drainage, approximately 75cc Ext/MSK: no focal deficits, CN intact Psych: alert, oriented, cooperative Results & Data Results & Data ([facility]) Vital Signs (Past 12 Hours) Vital Signs Temp Pulse Pulse Resp BP Pulse Ox 08/27/21 03:57 106 H 08/27/21 03:18 36.6 C 71 19 164/89 H 98 08/26/21 23:59 36.5 C 92 H 18 166/93 H 97 Laboratory Results 08/27/21 08/27/21 08/26/21 Range/Units 06:34 06:34 20:18 WBC 11.37 H (4.8-10.8) K/uL RBC 3.21 L (4.7-6.1) M/uL Hgb 9.1 L (14.0-18.0) g/dL Hct 29.3 L (42-52) % MCV 91.3 (80-100) fL MCH 28.3 (25-34) pg MCHC 31.1 L (32-36) g/dL RDW Std Deviation 73.2 H (36.4-46.3) fL RDW Coeff of Briana 21.6 H (11.5-14.5) % Plt Count 306 (130-400) K/uL MPV 8.9 (7.4-10.4) fL Immature Gran % (Auto) 0.3 % Neut % (Auto) 81.1 % Lymph % (Auto) 7.8 % [place] % (Auto) 10.2 % Eos % (Auto) 0.6 % Baso % (Auto) 0.0 % Neut # (Auto) 9.22 H (1.4-6.5) K/uL Lymph # (Auto) 0.89 L (1.2-3.4) K/uL [place] # (Auto) 1.16 H (0.11-0.59) K/uL Eos # (Auto) 0.07 (0-0.5) K/uL Baso # (Auto) 0.00 (0-0.2) K/uL Immature Gran # (Auto) 0.03 H (0.00-0.02) K/uL Polychromasia 1+ Anisocytosis Present Sodium 138 (136-145) mmol/L Potassium 3.8 (3.5-5.1) mmol/L Chloride 105 (98-107) mmol/L Carbon Dioxide 27 (21-32) mmol/L Anion Gap 6 (3-11) BUN 24 H (6-23) mg/dl Creatinine 0.37 L (0.6-1.4) mg/dl Est Cr Clr Drug Dosing 210.9 ml/min Est GFR ( Amer) > 150.0 ml/min Est GFR (Non-Af Amer) 138.1 ml/min BUN/Creatinine Ratio 64.9 H (10-20) Glucose 139 H (70-99(Fasting)) mg/dl POC Glucose 125 H (70-99) mg/dl Calcium 7.8 L (8.5-10.1) mg/dl Phosphorus 2.4 L (2.5-4.9) mg/dl Magnesium 2.0 (1.7-2.4) mg/dl 08/26/21 08/26/21 Range/Units 16:36 12:10 WBC (4.8-10.8) K/uL RBC (4.7-6.1) M/uL Hgb (14.0-18.0) g/dL Hct (42-52) % MCV (80-100) fL MCH (25-34) pg MCHC (32-36) g/dL RDW Std Deviation (36.4-46.3) fL RDW Coeff of Briana (11.5-14.5) % Plt Count (130-400) K/uL MPV (7.4-10.4) fL Immature Gran % (Auto) % Neut % (Auto) % Lymph % (Auto) % [place] % (Auto) % Eos % (Auto) % Baso % (Auto) % Neut # (Auto) (1.4-6.5) K/uL Lymph # (Auto) (1.2-3.4) K/uL [place] # (Auto) (0.11-0.59) K/uL Eos # (Auto) (0-0.5) K/uL Baso # (Auto) (0-0.2) K/uL Immature Gran # (Auto) (0.00-0.02) K/uL Polychromasia Anisocytosis Sodium (136-145) mmol/L Potassium (3.5-5.1) mmol/L Chloride (98-107) mmol/L Carbon Dioxide (21-32) mmol/L Anion Gap (3-11) BUN (6-23) mg/dl Creatinine (0.6-1.4) mg/dl Est Cr Clr Drug Dosing ml/min Est GFR ( Amer) ml/min Est GFR (Non-Af Amer) ml/min BUN/Creatinine Ratio (10-20) Glucose (70-99(Fasting)) mg/dl POC Glucose 102 H 113 H (70-99) mg/dl Calcium (8.5-10.1) mg/dl Phosphorus (2.5-4.9) mg/dl Magnesium (1.7-2.4) mg/dl Diagnostic Findings Chest X-Ray 08/26/21 07:37 SINGLE VIEW CHEST CLINICAL HISTORY: Hypoxia FINDINGS: An AP, portable, upright chest radiograph is compared to study dated 08/23/2021. The examination is degraded by portable technique and apical lordotic positioning. A left subclavian central venous infusion port is unchanged in position. The heart is top normal for projection. The pulmonary vasculature is noncongested. There are trace pleural effusions with dependent atelectasis. No pneumothorax is seen. The skeletal structures are osteopenic. The bony thorax is grossly intact. There is gaseous distention of the stomach. IMPRESSION: Trace pleural effusions with dependent atelectasis. ACT 112: Negative or not required by law. Electronically signed by: Rodney Rapp M.D. 08/26/2021 11:21 AM PG Care Time/CCT Total # of Minutes Spent Total Time Spent with Patient: Total time spent is greater than 50% in coordination of care (as documented) at patient's floor/unit and/or counseling patient: Coding Level of Care Code 57755 Subseq Hosp Care Lvl 3 Diagnoses Esophageal carcinoma C15.9 Acute blood loss anemia D62 Acid reflux K21.9
[2021-08-27] MEDS ORDERED: HYDROmorphone INJ 0.5 MG/0.5 ML SYR IV PRN (07:50)
[2021-08-27] MEDS ORDERED: ACETAMINOPHEN 1,000 MG/100 ML VIAL IV STA (07:56)
[2021-08-27] MEDS: INSULIN ASPART PER UNIT SC SCH ×4 (08:37→20:16)
[2021-08-27] MEDS ORDERED: FAMOTIDINE 20 MG in SYRINGE 3 ML IV ONE (09:58)
[2021-08-27] MEDS: PANTOprazole 40 MG in SYRINGE 0 ML IV SCH (11:01)
--- NOTE | 2021-08-27 13:42 | Surgery Progress Note ---
Date of Service August 27, 2021 Assessment & Plan (1) S/P exploratory laparotomy: Plan: F/U S/P Exploratory Laparotomy, Abdominal Washout, POD 4 doing better, continue TPN, clear diet, will F/U, Admission and Anticipated Discharge Date Admission Date: August 23, 2021 Subjective patient evaluated this morning feeling alright, pain still present but does note improvement in pain since IV tylenol this morning still having occasional hiccups which have been bothersome. will try dose of pepcid, if ineffective will attempt additional medical intervention +nausea but no vomiting but feels like prior intake he had some regurgitation but hasn't take much of anything orally had been ambulating the halls, 6-7x yesterday no flatus or BM yet but does have increase in BS today. continued use of incentive spirometer tolerating TPN -- nutrition to increase potassium supplementation. Will monitor IVF/reduce when able and limit total volume to not more than 100cc/hr. questions/concerns addressed at this time. 08/27/2021 Dr. Diallo F/U S/P Exploratory Laparotomy, Abdominal Washout pt is doing better, no abdominal pain, passed some gas , no BM yet, no fever, GEORGE 375 ml blood color, H/H stable, Physical Exam Constitutional: WD/WN, vitals as above Eyes: PERRL, conjunctivae normal, anicteric sclerae Neck: trachea midline, no thyromegaly Respiratory: normal respiratory effort, lungs clear to auscultation Cardiovascular: RRR, no murmur, no edema Gastrointestinal (Abdomen): soft, mild tend, mild tenderness, no rebound pain, BS +, J-tube intact Musculoskeletal: no cyanosis or clubbing, extremities motor strength 5/5 Neurologic: patellar DTR's 2+ bilat, sensation intact Psychiatric: A+Ox3, euthymic affect Results & Data ([facility]) Vital Signs (Past 12 Hours) Vital Signs Temp Pulse Pulse Resp BP Pulse Ox 08/27/21 11:27 36.4 C L 95 H 18 163/93 H 95 08/27/21 08:11 36.8 C 96 H 18 172/84 H 94 08/27/21 03:57 106 H 08/27/21 03:18 36.6 C 71 19 164/89 H 98 Laboratory Results Abnormal lab results 08/26/21 08/26/21 08/27/21 Range/Units 16:36 20:18 06:34 WBC (4.8-10.8) K/uL RBC (4.7-6.1) M/uL Hgb (14.0-18.0) g/dL Hct (42-52) % MCHC (32-36) g/dL RDW Std Deviation (36.4-46.3) fL RDW Coeff of Briana (11.5-14.5) % Neut # (Auto) (1.4-6.5) K/uL Lymph # (Auto) (1.2-3.4) K/uL [place] # (Auto) (0.11-0.59) K/uL Immature Gran # (Auto) (0.00-0.02) K/uL BUN 24 H (6-23) mg/dl Creatinine 0.37 L (0.6-1.4) mg/dl BUN/Creatinine Ratio 64.9 H (10-20) Glucose 139 H (70-99(Fasting)) mg/dl POC Glucose 102 H 125 H (70-99) mg/dl Calcium 7.8 L (8.5-10.1) mg/dl Phosphorus 2.4 L (2.5-4.9) mg/dl Albumin (3.4-5.0) gm/dl 08/27/21 08/27/21 08/27/21 Range/Units 06:34 06:34 07:46 WBC 11.37 H (4.8-10.8) K/uL RBC 3.21 L (4.7-6.1) M/uL Hgb 9.1 L (14.0-18.0) g/dL Hct 29.3 L (42-52) % MCHC 31.1 L (32-36) g/dL RDW Std Deviation 73.2 H (36.4-46.3) fL RDW Coeff of Briana 21.6 H (11.5-14.5) % Neut # (Auto) 9.22 H (1.4-6.5) K/uL Lymph # (Auto) 0.89 L (1.2-3.4) K/uL [place] # (Auto) 1.16 H (0.11-0.59) K/uL Immature Gran # (Auto) 0.03 H (0.00-0.02) K/uL BUN (6-23) mg/dl Creatinine (0.6-1.4) mg/dl BUN/Creatinine Ratio (10-20) Glucose (70-99(Fasting)) mg/dl POC Glucose 143 H (70-99) mg/dl Calcium (8.5-10.1) mg/dl Phosphorus (2.5-4.9) mg/dl Albumin 2.9 L (3.4-5.0) gm/dl 08/27/21 Range/Units 11:17 WBC (4.8-10.8) K/uL RBC (4.7-6.1) M/uL Hgb (14.0-18.0) g/dL Hct (42-52) % MCHC (32-36) g/dL RDW Std Deviation (36.4-46.3) fL RDW Coeff of Briana (11.5-14.5) % Neut # (Auto) (1.4-6.5) K/uL Lymph # (Auto) (1.2-3.4) K/uL [place] # (Auto) (0.11-0.59) K/uL Immature Gran # (Auto) (0.00-0.02) K/uL BUN (6-23) mg/dl Creatinine (0.6-1.4) mg/dl BUN/Creatinine Ratio (10-20) Glucose (70-99(Fasting)) mg/dl POC Glucose 134 H (70-99) mg/dl Calcium (8.5-10.1) mg/dl Phosphorus (2.5-4.9) mg/dl Albumin (3.4-5.0) gm/dl
[2021-08-27] MEDS ORDERED: CLINOLIPID 20% IV FAT EMULSION 250 ML IV SCH (16:00)
[2021-08-27] MEDS ORDERED: CENTRAL TPN IV SCH (16:00)
[2021-08-27] MEDS ORDERED: AMINO ACID 8% IV SCH (16:00)
[2021-08-27] MEDS ORDERED: [UNRECOGNIZED DRUG - OTHER] IV SCH (16:00)
[2021-08-27] MEDS ORDERED: LACTATED RINGER'S 1,000 ML IV SCH (16:00)
[2021-08-27] MEDS: ACETAMINOPHEN 1,000 MG/100 ML VIAL IV PRN (16:52)
[2021-08-27] MEDS ORDERED: bisacodyL 10 MG SUPP PR STA (17:23)
[2021-08-27] MEDS ORDERED: Nursing to Pharmacy Communication SCH (17:45)
[2021-08-27] MEDS ORDERED: STOP CLINOLIPID ONE (22:00)
[2021-08-28] MEDS: ACETAMINOPHEN 1,000 MG/100 ML VIAL IV PRN ×3 (01:05→17:30)
[2021-08-28 06:02] LABS: Hemoglobin 9.7 g/dL (14.0-18.0); Mean Corpuscular Hemoglobin 28.9 pg (25-34); Mean Corpuscular Hgb Conc 31.3 g/dL (32-36); Mean Corpuscular Volume 92.3 fL (80-100); Mean Platelet Volume 8.3 fL (7.4-10.4); Platelet Count 292 K/uL (130-400); RDW Coefficient of Variation 21.9 % (11.5-14.5); RDW Standard Deviation 75.8 fL (36.4-46.3); Red Blood Count 3.36 M/uL (4.7-6.1); White Blood Count 11.61 K/uL (4.8-10.8)
[2021-08-28 06:29] LABS: Anion Gap 5 (3-11); BUN Creatinine Ratio 53.7 (10-20); Blood Urea Nitrogen 22 mg/dl (6-23); Carbon Dioxide 29 mmol/L (21-32); Chloride 106 mmol/L (98-107); Creatinine Clr Calc Pharmacy 190.3 ml/min; Est GFR (African American) > 150.0 ml/min; Est GFR (Non-African American) 132.4 ml/min; Glucose 128 mg/dl (70-99(Fasting)); Phosphorus 2.6 mg/dl (2.5-4.9); Potassium 3.7 mmol/L (3.5-5.1); Sodium 140 mmol/L (136-145)
--- NOTE | 2021-08-28 07:29 | Hospitalist Progress Note ---
Date of Service August 28, 2021 Assessment & Plan (1) Esophageal carcinoma: Plan: This is a 55-year-old gentleman with a history of esophageal cancer. Patient follows at [facility] with Dr. Cruzito Ritter of hematology oncology. The patient was to have chemotherapy initiated on 08/23/2021 (which is today) and follow-up chemotherapy consideration was being given to having patient undergo radiation therapy. Once these modalities were complete accor ding to the patient and his consideration was going to be given to having the patient be evaluated by thoracic surgeon for consideration of esophagectomy. Pt presented with abdominal pain and abnormal imaging suggestion some free fluid in the abdomen, was taken to the OR overnight for washout. The results of the laparotomy revealed 1800cc of bloody liquid and clot material believed to be coming from a muscle at the site of the jejunostomy. A drain was placed POD#5 mediport placement, umbilical hernia repair, lap jejunostomy tube placement complicated by postop bleeding now POD#4 exlap and abdominal washout with evacuation of hematoma s/p 2 u PRBC for drop in hgb to 7.1 Hgb 9.7 (from 9.1) and completed Venofer x 3 doses while inpatient TPN initiated 08/26, titrating as able to improve nutrition prior to discharge and starting treatment with heme/onc per prior discussion. Pepcid added to TPN --> TPN + IVF to keep total volume < 100cc. Now that moving bowels, will d/c IVF and encourage PO intake, clear liquid diet and advancement as tolerated Continued senna liquids--> BM x 2, loose this morning after dulcolax MT by surgery last evening WBC trending down but still ~11k, CXR with atelectasis but had been having significant pain limiting ability to take deep breaths. Incentive spirometer and IV tylenol ordered as patient wanted to avoid IV opiates to slow GI motility --> Much improvement in pain with IV tylenol, has gotten 2 doses thus far and will continue Q8H IV prn Continued ambulation encouraged Would hope if able to advance diet and arrange for TPN, possible discharge tomorrow? (2) Acute blood loss anemia: Plan: Patient with postoperative acute blood loss anemia likely from his large h ematoma found in the abdomen. s/p 2 u PRBC 08/23 for hgb drop to 7.1 --> 9.4 on repeat Will check Iron panel --> Venofer 300mg IV x 3 doses Hgb stable, remains on IVF/TPN but will discontinue IVF today and monitor GEORGE output decreased compared to 08/25, 08/26 but about the same as day prior, less bloody today though CBC in AM (3) Acid reflux: Plan: increased belching/reflux on PPI IVP daily, added pepcid IVP x 1 08/27 and asked pharmacy to add to TPN Less reflux/belching/hiccups today Discussed can add second dose in evening if recurrence of symptoms but continue in TPN for now Monitor Plan: SCDs for DVT prophylaxis, chemoproph held in setting of acute blood loss/bleeding continue TPN/ambulation/incentive spirometer ?possible discharge tomorrow if ok with primary service and tolerates advancement of diet --> Would recommend continued TPN for nutrition at discharge and alerted CM as oncology would like nutritional status improved prior to starting treatment Admission and Anticipated Discharge Date Admission Date: August 23, 2021 Subjective patient evaluated this morning, resting in bed. two loose stools overnight after dulcolax suppository by general surgery feeling much better, pain improved but still present tolerating tube feeds without issue improvement in reflux/hiccups since pepcid yesterday and added to TPN. Discussed can increase to twice daily if recurrence of symptoms. no nausea/vomiting. GEORGE output slowed slightly and now less bloody/more serosanguineous. Hgb stable Discussed clear liquid diet and advancement slowly as tolerated but if tolerates advancement and bowels continue to move then could consider discharge tomorrow at discretion of primary service on TPN and outpatient follow up with Dr Ritter to begin treatment. Denies fever, chills, chest pain, shortness of breath. Questions/concerns addressed at this time. Review of Systems Review of Systems: All systems reviewed & are unremarkable except as noted in HPI & below Physical Exam Physical Exam: General: cachectic male, well developed (not well nourished), laying in bed sleeping, no acute distress Eyes anicertic, pupils equal and reactive chest with L aport, TPN infusion, no erythema mouth with improvement and mmm Resp CTAB, diminished in bases with associated crackles RML/RLL(less), no wheezing/rales, on room air and SpO2 96% CV: regular rhythm, rate (92bpm), no m/r/g, no edema, pulses palpable GI: hypoactive (increased), appropriately tender to palpation about surgical incision, no guarding/no rebound, J tube in place, splintering with cough. GEORGE with serosanguineous drainage, approx 50cc Ext/MSK: no focal deficits, CN intact Psych: alert, oriented, cooperative and pleasant Results & Data Results & Data ([facility]) Vital Signs (Past 12 Hours) Vital Signs Temp Pulse Pulse Resp BP Pulse Ox 08/28/21 03:25 37.3 C 88 20 166/90 H 98 08/28/21 01:47 94 H 08/27/21 23:27 37.5 C 95 H 20 154/85 H 93 08/27/21 19:30 37.2 C 77 18 151/88 H 97 Laboratory Results 08/28/21 08/28/21 08/28/21 Range/Units 07:25 05:50 05:50 WBC 11.61 H (4.8-10.8) K/uL RBC 3.36 L (4.7-6.1) M/uL Hgb 9.7 L (14.0-18.0) g/dL Hct 31.0 L (42-52) % MCV 92.3 (80-100) fL MCH 28.9 (25-34) pg MCHC 31.3 L (32-36) g/dL RDW Std Deviation 75.8 H (36.4-46.3) fL RDW Coeff of Briana 21.9 H (11.5-14.5) % Plt Count 292 (130-400) K/uL MPV 8.3 (7.4-10.4) fL Polychromasia Anisocytosis Sodium 140 (136-145) mmol/L Potassium 3.7 (3.5-5.1) mmol/L Chloride 106 (98-107) mmol/L Carbon Dioxide 29 (21-32) mmol/L Anion Gap 5 (3-11) BUN 22 (6-23) mg/dl Creatinine 0.41 L (0.6-1.4) mg/dl Est Cr Clr Drug Dosing 190.3 ml/min Est GFR ( Amer) > 150.0 ml/min Est GFR (Non-Af Amer) 132.4 ml/min BUN/Creatinine Ratio 53.7 H (10-20) Glucose 128 H (70-99(Fasting)) mg/dl POC Glucose 140 H (70-99) mg/dl Calcium 8.0 L (8.5-10.1) mg/dl Phosphorus 2.6 (2.5-4.9) mg/dl Magnesium 2.0 (1.7-2.4) mg/dl Albumin (3.4-5.0) gm/dl 08/27/21 08/27/21 08/27/21 Range/Units 20:08 16:18 11:17 WBC (4.8-10.8) K/uL RBC (4.7-6.1) M/uL Hgb (14.0-18.0) g/dL Hct (42-52) % MCV (80-100) fL MCH (25-34) pg MCHC (32-36) g/dL RDW Std Deviation (36.4-46.3) fL RDW Coeff of Briana (11.5-14.5) % Plt Count (130-400) K/uL MPV (7.4-10.4) fL Polychromasia Anisocytosis Sodium (136-145) mmol/L Potassium (3.5-5.1) mmol/L Chloride (98-107) mmol/L Carbon Dioxide (21-32) mmol/L Anion Gap (3-11) BUN (6-23) mg/dl Creatinine (0.6-1.4) mg/dl Est Cr Clr Drug Dosing ml/min Est GFR ( Amer) ml/min Est GFR (Non-Af Amer) ml/min BUN/Creatinine Ratio (10-20) Glucose (70-99(Fasting)) mg/dl POC Glucose 135 H 152 H 134 H (70-99) mg/dl Calcium (8.5-10.1) mg/dl Phosphorus (2.5-4.9) mg/dl Magnesium (1.7-2.4) mg/dl Albumin (3.4-5.0) gm/dl 08/27/21 08/27/21 08/27/21 Range/Units 07:46 06:34 06:34 WBC (4.8-10.8) K/uL RBC (4.7-6.1) M/uL Hgb (14.0-18.0) g/dL Hct (42-52) % MCV (80-100) fL MCH (25-34) pg MCHC (32-36) g/dL RDW Std Deviation (36.4-46.3) fL RDW Coeff of Briana (11.5-14.5) % Plt Count (130-400) K/uL MPV (7.4-10.4) fL Polychromasia 1+ Anisocytosis Present Sodium (136-145) mmol/L Potassium (3.5-5.1) mmol/L Chloride (98-107) mmol/L Carbon Dioxide (21-32) mmol/L Anion Gap (3-11) BUN (6-23) mg/dl Creatinine (0.6-1.4) mg/dl Est Cr Clr Drug Dosing ml/min Est GFR ( Amer) ml/min Est GFR (Non-Af Amer) ml/min BUN/Creatinine Ratio (10-20) Glucose (70-99(Fasting)) mg/dl POC Glucose 143 H (70-99) mg/dl Calcium (8.5-10.1) mg/dl Phosphorus (2.5-4.9) mg/dl Magnesium (1.7-2.4) mg/dl Albumin 2.9 L (3.4-5.0) gm/dl PG Care Time/CCT Total # of Minutes Spent Total Time Spent with Patient: Total time spent is greater than 50% in coordination of care (as documented) at patient's floor/unit and/or counseling patient: Coding Level of Care Code 67638 Subseq Hosp Care Lvl 3 Diagnoses Esophageal carcinoma C15.9 Acute blood loss anemia D62 Acid reflux K21.9
[2021-08-28] MEDS: SENNOSIDES 8.8 MG/5 ML UDC PO SCH ×2 (07:33→19:53)
[2021-08-28] MEDS: INSULIN ASPART PER UNIT SC SCH ×4 (08:21→20:30)
[2021-08-28] MEDS: PANTOprazole 40 MG in SYRINGE 0 ML IV SCH (11:12)
--- NOTE | 2021-08-28 13:59 | Surgery Progress Note ---
Date of Service August 28, 2021 Assessment & Plan (1) S/P exploratory laparotomy: Plan: F/U S/P Exploratory Laparotomy, Abdominal Washout, POD 4 doing better, continue TPN, clear diet, will F/U, 08/28/2021 F/U S/P Exploratory Laparotomy, Abdominal Washout, POD 5 doing better, continue TPN, advance diet will F/U, Admission and Anticipated Discharge Date Admission Date: August 23, 2021 Subjective patient evaluated this morning, resting in bed. two loose stools overnight after dulcolax suppository by general surgery feeling much better, pain improved but still present tolerating tube feeds without issue improvement in reflux/hiccups since pepcid yesterday and added to TPN. Discussed can increase to twice daily if recurrence of symptoms. no nausea/vomiting. GEORGE output slowed slightly and now less bloody/more serosanguineous. Hgb stable Discussed clear liquid diet and advancement slowly as tolerated but if tolerates advancement and bowels continue to move then could consider discharge tomorrow at discretion of primary service on TPN and outpatient follow up with Dr Ritter to begin treatment. Denies fever, chills, chest pain, shortness of breath. Questions/concerns addressed at this time. 08/28/2021 1:59PM Dr. Diallo F/U S/P Exploratory Laparotomy, Abdominal Washout pt is doing better, no abdominal pain, passed some gas , no BM yet, no fever, GEORGE 268 ml blood color, H/H stable, Physical Exam Constitutional: WD/WN, vitals as above Eyes: PERRL, conjunctivae normal, anicteric sclerae Neck: trachea midline, no thyromegaly Respiratory: normal respiratory effort, lungs clear to auscultation Cardiovascular: RRR, no murmur, no edema Gastrointestinal (Abdomen): soft, NT, Nd, incision intact, no redness, Musculoskeletal: no cyanosis or clubbing, extremities motor strength 5/5 Neurologic: patellar DTR's 2+ bilat, sensation intact Psychiatric: A+Ox3, euthymic affect Results & Data ([facility]) Vital Signs (Past 12 Hours) Vital Signs Temp Pulse Resp BP Pulse Ox 08/28/21 12:00 37.1 C 92 H 18 153/85 H 95 08/28/21 07:37 36.3 C L 96 H 18 118/71 96 08/28/21 03:25 37.3 C 88 20 166/90 H 98 Laboratory Results Abnormal lab results 08/27/21 08/27/21 08/28/21 Range/Units 16:18 20:08 05:50 WBC (4.8-10.8) K/uL RBC (4.7-6.1) M/uL Hgb (14.0-18.0) g/dL Hct (42-52) % MCHC (32-36) g/dL RDW Std Deviation (36.4-46.3) fL RDW Coeff of Briana (11.5-14.5) % Creatinine 0.41 L (0.6-1.4) mg/dl BUN/Creatinine Ratio 53.7 H (10-20) Glucose 128 H (70-99(Fasting)) mg/dl POC Glucose 152 H 135 H (70-99) mg/dl Calcium 8.0 L (8.5-10.1) mg/dl 08/28/21 08/28/21 08/28/21 Range/Units 05:50 07:25 11:34 WBC 11.61 H (4.8-10.8) K/uL RBC 3.36 L (4.7-6.1) M/uL Hgb 9.7 L (14.0-18.0) g/dL Hct 31.0 L (42-52) % MCHC 31.3 L (32-36) g/dL RDW Std Deviation 75.8 H (36.4-46.3) fL RDW Coeff of Briana 21.9 H (11.5-14.5) % Creatinine (0.6-1.4) mg/dl BUN/Creatinine Ratio (10-20) Glucose (70-99(Fasting)) mg/dl POC Glucose 140 H 153 H (70-99) mg/dl Calcium (8.5-10.1) mg/dl
[2021-08-28] MEDS ORDERED: CLINOLIPID 20% IV FAT EMULSION 250 ML IV SCH (16:00)
[2021-08-28] MEDS ORDERED: [UNRECOGNIZED DRUG - OTHER] IV SCH (16:00)
[2021-08-28] MEDS ORDERED: AMINO ACID 8% IV SCH (16:00)
[2021-08-28] MEDS ORDERED: CENTRAL TPN IV SCH (16:00)
[2021-08-28] MEDS ORDERED: STOP CLINOLIPID ONE (22:00)
[2021-08-29] MEDS: ACETAMINOPHEN 1,000 MG/100 ML VIAL IV PRN ×2 (00:33→09:17)
[2021-08-29] MEDS ORDERED: COUGH DROP (SUGAR FREE) LOZ 24 LOZ/1 BOX BUCCAL ONE (06:05)
[2021-08-29 06:54] LABS: Anion Gap 6 (3-11); Blood Urea Nitrogen 21 mg/dl (6-23); Calcium 7.6 mg/dl (8.5-10.1); Carbon Dioxide 25 mmol/L (21-32); Chloride 107 mmol/L (98-107); Creatinine Clr Calc Pharmacy 181.6 ml/min; Est GFR (African American) > 150.0 ml/min; Est GFR (Non-African American) 131.1 ml/min; Glucose 127 mg/dl (70-99(Fasting)); Magnesium 2.1 mg/dl (1.7-2.4); Phosphorus 3.2 mg/dl (2.5-4.9); Potassium 3.3 mmol/L (3.5-5.1); Sodium 138 mmol/L (136-145)
--- NOTE | 2021-08-29 07:22 | Hospitalist Progress Note ---
Date of Service August 29, 2021 Assessment & Plan (1) Esophageal carcinoma: Plan: This is a 55-year-old gentleman with a history of esophageal cancer. The patient was to have chemotherapy initiated on 08/23/2021 and consideration of radiation therapy.After that to be evaluated by thoracic surgeon for consideration of esophagectomy. Pt presented with abdominal pain and abnormal imaging suggestion some free fluid in the abdomen, was taken to the OR overnight for washout. The results of the laparotomy revealed 1800cc of bloody liquid and clot material believed to be coming from a muscle at the site of the jejunostomy. A drain was placed [id number] mediport placement, umbilical hernia repair, lap jejunostomy tube placement Acute blood loss anemia, transfusion 2 u prbc Zosyn IV, discontinued 08/27/21 ON tpn hypokalemia, replete iv Heme/Onc on consult-- iron studies Low and replacement has been ordered venofer 08/25 for iron 18/trans % sat 7% * chemotherapy defered until healed (2) Acute blood loss anemia: Plan: Patient with postoperative acute blood loss anemia likely from his large hematoma found in the abdomen. s/p 2 u PRBC 08/23 --> Venofer 300mg IV x3 last on 08/26/21 Plan: SCDs for DVT prophylaxis, chemoproph held in setting of acute blood loss/bleeding Admission and Anticipated Discharge Date Admission Date: August 23, 2021 Subjective this pt is doing better tolerating small sips of water with decreasing GEORGE output and stable vital signs Review of Systems Review of Systems: Mild distress and fatigue no headache, no visual changes no speech or swallowing issues no chest pain, pressure or palpitations no shortness of breath, cough or wheezes post operative abdominal pain, drain and jejunal tube in place no dysuria, hematuria or frequency no focal joint pain or swelling no back pain, CVA tenderness or radicular pain no bruising, bleeding or rashes no focal signs of weakness or numbness or altered sensation no complaints of anxiety or depression. Physical Exam Physical Exam: The patient appeared well nourished and normally developed. Vital signs as documented. Head exam is normocephalic atraumatic Neck is without JVD, thyromegaly, or carotid bruits. Lungs are clear to auscultation, no focal loss of breath sounds Cardiac exam, Rhythm is regular.. No murmurs, rubs or gallops. Abdominal exam reveals post operative abdominal pain, drain and jejunal tube in place Extremities are nonedematous and both pedal pulses are present Neurologic exam is alert and oriented, no focal loss of strength or sensation Skin is without bruises or rashes Psychologically is without concerns for anxiety or depression.. Results & Data Results & Data ([facility]) Vital Signs (Past 12 Hours) Vital Signs Temp Pulse Pulse Resp BP BP Pulse Ox 08/29/21 04:00 97.9 F 93 H 18 153/82 H 94 08/29/21 00:21 106 H 08/28/21 23:00 97.9 F 102 H 18 134/77 94 PG Care Time/CCT Total # of Minutes Spent Total Time Spent with Patient: Total time spent is greater than 50% in coordination of care (as documented) at patient's floor/unit and/or counseling patient: Coding Level of Care Code 28640 Subseq Hosp Care Lvl 2 Diagnoses Esophageal carcinoma C15.9 Acute blood loss anemia D62
[2021-08-29] MEDS ORDERED: POTASSIUM CHLORIDE 10 MEQ / 100ML WTR IV STA (07:25)
[2021-08-29] MEDS: POTASSIUM CHLORIDE / WTR 10 MEQ/100 ML PLCT IV SCH ×3 (07:49→10:28)
[2021-08-29] MEDS: SENNOSIDES 8.8 MG/5 ML UDC PO SCH ×2 (07:53→20:20)
[2021-08-29] MEDS: INSULIN ASPART PER UNIT SC SCH ×4 (07:55→21:48)
--- NOTE | 2021-08-29 10:41 | Surgery Progress Note ---
Date of Service August 29, 2021 Assessment & Plan (1) S/P exploratory laparotomy: Plan: POD#6 mediport placement, umbilical hernia repair, lap jejunostomy tube placement complicated by postop bleeding now POD#7 exlap and abdominal washout with evacuation of hematoma - Hbg stable over weekend - Patient feeling daily improvement in symptoms. He is passing flatus and loose stools - Starting full liquids today, will add boost supplementation. Patient has been on TPN- appears oncology would like him to continue this to improve nutrition prior to starting chemo - Abdomen is soft, but remains distended (improving). Incisions are c/d/i without signs of infection - GEORGE drain serosang, okay to be removed - Case management consulted for assistance with setting up TPN at home (has port). May need another day in house - Appreciate hospitalists assistance with patient Admission and Anticipated Discharge Date Admission Date: August 23, 2021 Supervising Physician Co-Signing Physician Notes He is progressing slowly No emesis -Tolerating full liquid s will advance On TPN Drain is serous-we will have the GEORGE removed Stable from a surgical standpoint Subjective Patient reports daily improvement. Still some abdominal discomfort & bloating, but getting better. He tried full liquids today for the first time and reports he did well, no n/v. He is passing flatus and having loose stools. Physical Exam Physical Exam: awake/alert Gastrointestinal (Abdomen): Inspection/Auscultation: + abdomen distended and + abdominal surgical incision (c/d/i no signs of infection) Percussion/Palpation: + abdomen tender (some fabi incisional discomfort) and abdomen soft Results & Data ([facility]) Vital Signs (Past 12 Hours) Vital Signs Temp Pulse Pulse Resp BP BP Pulse Ox 08/29/21 04:00 36.6 C 93 H 18 153/82 H 94 08/29/21 00:21 106 H 08/28/21 23:00 36.6 C 102 H 18 134/77 94 PG Care Time/CCT Total # of Minutes Spent Total Time Spent with Patient: Total time spent is greater than 50% in coordination of care (as documented) at patient's floor/unit and/or counseling patient: Coding Level of Care Code None Diagnoses S/P exploratory laparotomy Z98.890
[2021-08-29] MEDS: PANTOprazole 40 MG in SYRINGE 0 ML IV SCH (11:48)
[2021-08-29] MEDS ORDERED: AMINO ACID 8% IV SCH (16:00)
[2021-08-29] MEDS ORDERED: CLINOLIPID 20% IV FAT EMULSION 250 ML IV SCH (16:00)
[2021-08-29] MEDS ORDERED: CENTRAL TPN IV SCH (16:00)
[2021-08-29] MEDS ORDERED: [UNRECOGNIZED DRUG - OTHER] IV SCH (16:00)
[2021-08-29] MEDS: ACETAMINOPHEN 325 MG TAB PO PRN (18:48)
[2021-08-29] MEDS: TUBE FEEDING WATER FLUSH JT SCH (20:08)
[2021-08-29] MEDS: PEPTAMEN 1.5 CAL 1,000 ML BAG JT SCH (20:08)
[2021-08-29] MEDS ORDERED: STOP CLINOLIPID ONE (22:00)
[2021-08-30] MEDS: ACETAMINOPHEN 325 MG TAB PO PRN ×3 (02:58→19:31)
[2021-08-30 07:21] LABS: Basophils # (auto) 0.01 K/uL (0-0.2); Basophils % (auto) 0.1 %; Eosinophils # (auto) 0.27 K/uL (0-0.5); Eosinophils % (auto) 2.1 %; Hematocrit (blood only) 29.1 % (42-52); Hemoglobin 8.9 g/dL (14.0-18.0); Immature Granulocytes # (auto) 0.07 K/uL (0.00-0.02); Immature Granulocytes % (auto) 0.6 %; Lymphocytes # (auto) 0.83 K/uL (1.2-3.4); Lymphocytes % (auto) 6.6 %; Mean Corpuscular Hemoglobin 28.1 pg (25-34); Mean Corpuscular Hgb Conc 30.6 g/dL (32-36); Mean Corpuscular Volume 91.8 fL (80-100); Mean Platelet Volume 8.8 fL (7.4-10.4); Monocytes # (auto) 0.87 K/uL (0.11-0.59); Monocytes % (auto) 6.9 %; Neutrophils # (auto) 10.53 K/uL (1.4-6.5); Neutrophils % (auto) 83.7 %; Platelet Count 274 K/uL (130-400); RDW Coefficient of Variation 21.1 % (11.5-14.5); RDW Standard Deviation 72.9 fL (36.4-46.3); Red Blood Count 3.17 M/uL (4.7-6.1); White Blood Count 12.58 K/uL (4.8-10.8)
[2021-08-30] MEDS: INSULIN ASPART PER UNIT SC SCH ×4 (07:35→21:48)
[2021-08-30 07:38] LABS: Anisocytosis Present; Hypochromasia Present; Polychromasia 1+
[2021-08-30] MEDS: TUBE FEEDING WATER FLUSH JT SCH ×4 (07:43→21:00)
[2021-08-30] MEDS: PANTOprazole 40 MG TAB PO SCH (07:43)
[2021-08-30] MEDS: SENNOSIDES 8.8 MG/5 ML UDC PO SCH ×2 (07:43→19:32)
[2021-08-30 07:45] LABS: Anion Gap 6 (3-11); BUN Creatinine Ratio 48.8 (10-20); Blood Urea Nitrogen 21 mg/dl (6-23); Calcium 7.2 mg/dl (8.5-10.1); Carbon Dioxide 22 mmol/L (21-32); Chloride 108 mmol/L (98-107); Creatinine Clr Calc Pharmacy 181.5 ml/min; Est GFR (African American) > 150.0 ml/min; Est GFR (Non-African American) 129.8 ml/min; Glucose 120 mg/dl (70-99(Fasting)); Potassium 3.3 mmol/L (3.5-5.1); Sodium 136 mmol/L (136-145)
[2021-08-30] MEDS: POTASSIUM CHLORIDE CRTAB 20 MEQ TABCR PO SCH ×3 (08:38→20:57)
[2021-08-30 08:50] LABS: Magnesium 2.2 mg/dl (1.7-2.4); Phosphorus 2.8 mg/dl (2.5-4.9)
--- NOTE | 2021-08-30 09:15 | Surgery Progress Note ---
Date of Service August 30, 2021 Assessment & Plan (1) S/P exploratory laparotomy: Plan: I would prefer one more day however will try and organize to d/c later today. I want him to receive the majority of his TPN bag which is currently running. I also want to increase his tube feeds to make sure he can tolerate them. We will also need to organize a goal tube feed to run at night and will need to discuss with the sheep and wheat farmer. We will also need to coordinate with the caser in to set up home nursing. If we can manage all this by later this afternoon we will let him go home otherwise he may have to wait until tomorrow morning. We are also going to advance his diet today. (2) Esophageal carcinoma: Admission and Anticipated Discharge Date Admission Date: August 23, 2021 Subjective pt seen. really wants to go home. abdomen feeling much better. having loose bm's. kong full liquids. Physical Exam Physical Exam: alert. less distension incisions look good. Results & Data ([facility]) Vital Signs (Past 12 Hours) Vital Signs Temp Pulse Pulse Resp BP BP Pulse Ox 08/30/21 06:58 36.8 C 95 H 20 151/80 H 95 08/30/21 04:25 36.8 C 99 H 20 154/82 H 96 08/29/21 23:03 36.7 C 97 H 20 151/81 H 97 08/29/21 22:18 91 H PG Care Time/CCT Total # of Minutes Spent Total Time Spent with Patient: Total time spent is greater than 50% in coordination of care (as documented) at patient's floor/unit and/or counseling patient: Coding Level of Care Code None Diagnoses S/P exploratory laparotomy Z98.890 Esophageal carcinoma C15.9
--- NOTE | 2021-08-30 16:03 | XRay Report ---
XR chest 1V portable CLINICAL HISTORY: R basilar rhonchi; collapse?? COMPARISON STUDY: Chest radiograph August 26, 2021. PET/CT August 15, 2021. FINDINGS: Left subclavian Jsvpbh-s-Evru is in place. Cardiomediastinal silhouette is unremarkable. Th ere is no pneumothorax. There is no evidence for pulmonary edema. Small left pleural effusion is pres ent. Bibasilar opacities favor atelectasis. No consolidation. Lung volumes are mildly diminished. IMPRESSION: 1. Low lung volumes. Bibasilar opacities suggestive of atelectasis. 2. Small left pleural effusion. ACT 112: Negative or not required by law. Electronically signed by: Andrew Spears M.D. 08/30/2021 4:02 PM
--- NOTE | 2021-08-30 20:28 | Hospitalist Progress Note ---
Date of Service August 30, 2021 Assessment & Plan (1) Esophageal carcinoma: Plan: Followed by [facility] locally. Chemotherapy was to be initiated on 08/23/2021 and consideration of radiation therapy as well. Later he would have thoracic surgery eval for consideration of esophagectomy. 08/22/21 - s/p mediport placement, umbilical hernia repair, lap jejunostomy tube placement. 08/23/21 - s/p ex lap with abdominal washout and 1800cc of blood removed from the abdomen. Both surgeries performed by Dr Pederson. 08/24/21 - seen by Dr Ritter, [facility], and IV venofer x 3 doses advised for severe anemia. Received IV zosyn perioperatively and discontinued 08/27/21. Will f/u with Dr Ritter post-discharge. (2) Acute blood loss anemia: Plan: Patient with postoperative acute blood loss anemia from his large hematoma found in the abdomen. s/p ex lap 08/23/21 with removal of 1800cc of blood. s/p 2 units PRBC 08/23/21. s/p IV venofer x 3 doses, last on 08/26/21. H/H acceptable today. (3) Hypokalemia: Plan: Replace. Repeat K in am. Mag level = 2.2. (4) DVT prophylaxis: Plan: SCDs. Due to recent intra-abdominal bleeding chemical means deferred. (5) Iron deficiency anemia: Plan: see #2 above (6) Abnormal lung sounds: Plan: RLL on exam. CXR obtained - atelectasis only. Incentive clifford. Add flutter valve. O2 sats wnl. (7) Jejunostomy tube present: Plan: Appreciate nutrition recommendations. Night-time tube feedings ordered. Plan: updated at bedside general surgery is hopeful for d/c home tomorrow on Sunday Admission and Anticipated Discharge Date Admission Date: August 23, 2021 Subjective events of last 24 hours noted pt's was at bedside during the visit pt and his were very tearful - concerned that the delays in getting home are ultimately delaying his esophageal cancer chemotherapy, etc he continues with mild abdominal distension but is passing flatus/stools tolerating oral diet (now regular) tolerating J-tube feedings at night-time Review of Systems Review of Systems: gen - fatigue cv - no chest pain pulm - no dyspnea but does hurt to take deep breaths (abdomen); no vomiting GI - abd bloating/discomfort Physical Exam Physical Exam: gen - thin, NAD, tearful mouth - MMM neck - no JVD heart - borderline tachy, s1 s2, no murmur lungs - right base with focal rhonchi, poor air movement; otherwise CTA b/l abd - mildly distended, BS+, dressings in place, j-tube in place ext - trace edema b/l, pulses 2+ b/l psych - a/o x 3 Results & Data Results & Data ([facility]) Vital Signs (Past 12 Hours) Vital Signs Temp Pulse Pulse Resp BP Pulse Ox 08/30/21 19:56 37.0 C 62 18 157/84 H 95 08/30/21 16:00 37 C 99 H 20 155/79 H 96 08/30/21 10:59 36.5 C 98 H 20 160/77 H 97 Laboratory Results Laboratory Results - last 24 hr 08/30/21 08/30/21 08/30/21 06:09 06:09 06:09 WBC 12.58 H RBC 3.17 L Hgb 8.9 L Hct 29.1 L MCV 91.8 MCH 28.1 MCHC 30.6 L RDW Std Deviation 72.9 H RDW Coeff of Briana 21.1 H Plt Count 274 MPV 8.8 Immature Gran % (Auto) 0.6 Neut % (Auto) 83.7 Lymph % (Auto) 6.6 Nye % (Auto) 6.9 Eos % (Auto) 2.1 Baso % (Auto) 0.1 Neut # (Auto) 10.53 H Lymph # (Auto) 0.83 L Nye # (Auto) 0.87 H Eos # (Auto) 0.27 Baso # (Auto) 0.01 Immature Gran # (Auto) 0.07 H Polychromasia 1+ Hypochromasia Present Anisocytosis Present Sodium 136 Potassium 3.3 L Chloride 108 H Carbon Dioxide 22 Anion Gap 6 BUN 21 Creatinine 0.43 L Est Cr Clr Drug Dosing 181.5 Est GFR ( Amer) > 150.0 Est GFR (Non-Af Amer) 129.8 BUN/Creatinine Ratio 48.8 H Glucose 120 H POC Glucose Calcium 7.2 L Phosphorus 2.8 Magnesium 2.2 08/30/21 08/30/21 08/30/21 07:29 11:31 16:33 WBC RBC Hgb Hct MCV MCH MCHC RDW Std Deviation RDW Coeff of Briana Plt Count MPV Immature Gran % (Auto) Neut % (Auto) Lymph % (Auto) Nye % (Auto) Eos % (Auto) Baso % (Auto) Neut # (Auto) Lymph # (Auto) Nye # (Auto) Eos # (Auto) Baso # (Auto) Immature Gran # (Auto) Polychromasia Hypochromasia Anisocytosis Sodium Potassium Chloride Carbon Dioxide Anion Gap BUN Creatinine Est Cr Clr Drug Dosing Est GFR ( Amer) Est GFR (Non-Af Amer) BUN/Creatinine Ratio Glucose POC Glucose 134 H 127 H 122 H Calcium Phosphorus Magnesium 08/30/21 20:08 WBC RBC Hgb Hct MCV MCH MCHC RDW Std Deviation RDW Coeff of Briana Plt Count MPV Immature Gran % (Auto) Neut % (Auto) Lymph % (Auto) Nye % (Auto) Eos % (Auto) Baso % (Auto) Neut # (Auto) Lymph # (Auto) Nye # (Auto) Eos # (Auto) Baso # (Auto) Immature Gran # (Auto) Polychromasia Hypochromasia Anisocytosis Sodium Potassium Chloride Carbon Dioxide Anion Gap BUN Creatinine Est Cr Clr Drug Dosing Est GFR ( Amer) Est GFR (Non-Af Amer) BUN/Creatinine Ratio Glucose POC Glucose 113 H Calcium Phosphorus Magnesium PG Care Time/CCT Total # of Minutes Spent Total Time Spent with Patient: Total time spent is greater than 50% in coordination of care (as documented) at patient's floor/unit and/or counseling patient: Coding Level of Care Code 86610 Subseq Hosp Care Lvl 2 Diagnoses Esophageal carcinoma C15.9 Acute blood loss anemia D62 Hypokalemia E87.6 DVT prophylaxis Z29.9 Iron deficiency anemia D50.9 Abnormal lung sounds R09.89 Jejunostomy tube present Z93.4
[2021-08-30] MEDS: PEPTAMEN 1.5 CAL 1,000 ML BAG JT SCH (20:59)
[2021-08-30] MEDS: oxyCODONE HCL IR 5 MG TAB (IMMEDIATE RELEASE) PO PRN (21:01)
[2021-08-31] MEDS: oxyCODONE HCL IR 5 MG TAB (IMMEDIATE RELEASE) PO PRN (03:18)
[2021-08-31 07:02] LABS: Hematocrit (blood only) 28.2 % (42-52); Hemoglobin 8.7 g/dL (14.0-18.0); Mean Corpuscular Hemoglobin 28.2 pg (25-34); Mean Corpuscular Hgb Conc 30.9 g/dL (32-36); Mean Corpuscular Volume 91.3 fL (80-100); Mean Platelet Volume 8.4 fL (7.4-10.4); Platelet Count 245 K/uL (130-400); RDW Coefficient of Variation 20.8 % (11.5-14.5); RDW Standard Deviation 72.7 fL (36.4-46.3); Red Blood Count 3.09 M/uL (4.7-6.1); White Blood Count 15.91 K/uL (4.8-10.8)
[2021-08-31 07:38] LABS: Albumin Level 2.8 gm/dl (3.4-5.0); BUN Creatinine Ratio 39.1 (10-20); Calcium 8.1 mg/dl (8.5-10.1); Creatinine Clr Calc Pharmacy 167.3 ml/min; Est GFR (African American) 146.3 ml/min; Est GFR (Non-African American) 126.2 ml/min; Potassium 3.8 mmol/L (3.5-5.1)
[2021-08-31] MEDS: INSULIN ASPART PER UNIT SC SCH ×2 (08:00→13:03)
[2021-08-31] MEDS: POTASSIUM CHLORIDE CRTAB 20 MEQ TABCR PO SCH ×2 (08:01→13:35)
[2021-08-31] MEDS: SENNOSIDES 8.8 MG/5 ML UDC PO SCH (08:01)
[2021-08-31] MEDS: PANTOprazole 40 MG TAB PO SCH (08:01)
[2021-08-31] MEDS: TUBE FEEDING WATER FLUSH JT SCH ×2 (08:02→13:36)
[2021-08-31] MEDS: ACETAMINOPHEN 325 MG TAB PO PRN (08:13)
--- NOTE | 2021-08-31 08:46 | Surgery Progress Note ---
Date of Service August 31, 2021 Assessment & Plan (1) S/P exploratory laparotomy: Plan: POD#8 mediport placement, umbilical hernia repair, lap jejunostomy tube placement complicated by postop bleeding now POD#9 exlap and abdominal washout with evacuation of hematoma - Today Hbg 8.7 (8.9), WBC 15.9 (12.8). CXR yest revealed atelectasis. Pt afebrile. incisions without e/o infection - TEN advanced to 40cc/hr overnight and he tolerated it. Also eating some regular food - Abdomen is distended, but he does continue to pass gas/BM. Offers no belly complaints - Patient is getting set up for TEN at home, awaiting approval from case management. Pt hopeful for discharge today - If goes home today will send out on a course of po augmentin for elevated WBC (?infected hematoma)...f/u with Dr. Pederson in 1 week Admission and Anticipated Discharge Date Admission Date: August 23, 2021 Subjective Patient experiencing some back pain overnight, limited his sleep. Tried some oxycodone + dilaudid with minimal relief...believes it's related to the bed. Tolerated an increase rate of TEN overnight. + gas/bm. Physical Exam Physical Exam: awake/alert, sitting up at edge of bed eating bfast Gastrointestinal (Abdomen): Inspection/Auscultation: + abdomen distended and + abdominal surgical incision (c/d/i no signs of infection) Percussion/Palpation: abdomen nontender Results & Data ([facility]) Vital Signs (Past 12 Hours) Vital Signs Temp Pulse Pulse Pulse Resp BP Pulse Ox 08/31/21 08:00 36.6 C 108 H 18 159/81 H 99 08/31/21 04:12 36.7 C 108 H 20 160/85 H 97 08/30/21 23:34 36.6 C 103 H 20 143/83 H 94 08/30/21 22:19 98 H PG Care Time/CCT Total # of Minutes Spent Total Time Spent with Patient: Total time spent is greater than 50% in coordination of care (as documented) at patient's floor/unit and/or counseling patient: Coding Level of Care Code None Diagnoses S/P exploratory laparotomy Z98.890
[2021-08-31 09:06] LABS: Folate (Folic Acid) 13.66 ng/ml (>5.38)
--- NOTE | 2021-08-31 10:03 | Hospitalist Progress Note ---
Date of Service August 31, 2021 Assessment & Plan (1) Sinus tachycardia: Plan: CTA chest neg for obvious PEs Pain, anxiety, acute blood loss - likely all of these are to blame for the tachycardia. Continue to follow closely. 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 [facility] and is eagerly awaiting the initation of chemotherapy - likely to be early next week. (3) Esophageal carcinoma: Plan: Followed by [facility] locally. Chemotherapy was to be initiated on 08/23/2021 and consideration of radiation therapy as well. Later he would have thoracic surgery eval for consideration of esophagectomy. 08/22/21 - s/p mediport placement, umbilical hernia repair, lap jejunostomy tube placement. 08/23/21 - s/p ex lap with abdominal washout and 1800cc of blood removed from the abdomen. Both surgeries performed by Dr Pederson. 08/24/21 - seen by Dr Ritter, [facility], and IV venofer x 3 doses advised for severe anemia. Received IV zosyn perioperatively and discontinued 08/27/21. Will f/u with Dr Ritter post-discharge. (4) Acute blood loss anemia: Plan: Patient with postoperative acute blood loss anemia from his large hematoma found in the abdomen. s/p ex lap 08/23/21 with removal of 1800cc of blood. s/p 2 units PRBC 08/23/21. s/p IV venofer x 3 doses, last on 08/26/21. H/H remain acceptable. (5) Hypokalemia: Plan: Replaced and resolved. (6) DVT prophylaxis: Plan: SCDs. Due to recent intra-abdominal bleeding chemical means deferred. (7) Iron deficiency anemia: Plan: see #3 above (8) Abnormal lung sounds: Plan: RLL on exam. CXR obtained - atelectasis only. CTA chest today - mild effusion, mild atelectasis on the right. Cont Incentive clifford. Cont flutter valve. O2 sats wnl. (9) Jejunostomy tube present: Plan: Appreciate nutrition recommendations. Cont tube feedings per surgery recommendations. Plan: B12 level is low-normal - recommend replacement (SL or PO) post-discharge to help his anemia. Again he already received IV venofer while here. It is reassuring that despite the tachycardia the CTA chest did not show any PEs. Has mild leukocytosis - exact cause uncertain (reactive?). Dr Pederson may send patient home with po antibiotics. I added some medical instructions to the d/c paper work. ok from medical standpoint to d/c home. Admission and Anticipated Discharge Date Admission Date: August 23, 2021 Subjective patient sitting in chair anxious to go home tolerating PO intake tolerating J-tube feedings he remains tachycardic, but denies dyspnea denies chest pain Review of Systems Review of Systems: gen - no fevers or chills cv - no pleuritic pain, no central cp pulm - no cough GI - mild distension, pain is manageable, no vomiting Physical Exam Physical Exam: gen - thin, NAD mouth - MMM neck - no JVD heart - mild tachycardia, s1 s2, no murmur lungs - right base with focal rhonchi, poor air movement; otherwise CTA b/l abd - mildly distended, BS+, dressings in place, j-tube in place ext - trace edema b/l, pulses 2+ b/l psych - a/o x 3, mildly anxious Results & Data Results & Data ([facility]) Vital Signs (Past 12 Hours) Vital Signs Temp Pulse Pulse Pulse Resp BP Pulse Ox 08/31/21 08:00 36.6 C 108 H 18 159/81 H 99 08/31/21 04:12 36.7 C 108 H 20 160/85 H 97 08/30/21 23:34 36.6 C 103 H 20 143/83 H 94 08/30/21 22:19 98 H Laboratory Results Laboratory Results - last 24 hr 08/30/21 08/30/21 08/30/21 11:31 16:33 20:08 WBC RBC Hgb Hct MCV MCH MCHC RDW Std Deviation RDW Coeff of Briana Plt Count MPV Sodium Potassium Chloride Carbon Dioxide Anion Gap BUN Creatinine Est Cr Clr Drug Dosing Est GFR ( Amer) Est GFR (Non-Af Amer) BUN/Creatinine Ratio Glucose POC Glucose 127 H 122 H 113 H Calcium Albumin Vitamin B12 Folate 08/31/21 08/31/21 08/31/21 06:36 06:36 06:36 WBC 15.91 H RBC 3.09 L Hgb 8.7 L Hct 28.2 L MCV 91.3 MCH 28.2 MCHC 30.9 L RDW Std Deviation 72.7 H RDW Coeff of Briana 20.8 H Plt Count 245 MPV 8.4 Sodium 134 L Potassium 3.8 Chloride 106 Carbon Dioxide 24 Anion Gap 4 BUN 18 Creatinine 0.46 L Est Cr Clr Drug Dosing 167.3 Est GFR ( Amer) 146.3 Est GFR (Non-Af Amer) 126.2 BUN/Creatinine Ratio 39.1 H Glucose 103 H POC Glucose Calcium 8.1 L Albumin 2.8 L Vitamin B12 269 Folate 13.66 08/31/21 07:48 WBC RBC Hgb Hct MCV MCH MCHC RDW Std Deviation RDW Coeff of Briana Plt Count MPV Sodium Potassium Chloride Carbon Dioxide Anion Gap BUN Creatinine Est Cr Clr Drug Dosing Est GFR ( Amer) Est GFR (Non-Af Amer) BUN/Creatinine Ratio Glucose POC Glucose 122 H Calcium Albumin Vitamin B12 Folate Diagnostic Findings CTA chest - 1. No pulmonary emboli identified although segmental and subsegmental pulmonary arteries suboptimally assessed due to respiratory motion artifact. 2. Small left and trace right pleural effusions with subpleural opacities favor atelectasis. 3. Indeterminate 4 mm right middle lobe nodule, not clearly evident on PET/CT of August 15, 2021. 4. Gastric wall thickening consistent with known malignancy and abdominal adenopathy, better depicted on PET/CT of August 15, 2021. PG Care Time/CCT Total # of Minutes Spent Total Time Spent with Patient: Total time spent is greater than 50% in coordination of care (as documented) at patient's floor/unit and/or counseling patient: Coding Level of Care Code 15727 Subseq Hosp Care Lvl 2 Diagnoses Esophageal carcinoma C15.9 Acute blood loss anemia D62 Hypokalemia E87.6 DVT prophylaxis Z29.9 Iron deficiency anemia D50.9 Abnormal lung sounds R09.89 Jejunostomy tube present Z93.4 Gastric cancer C16.9 Sinus tachycardia R00.0
[2021-08-31] MEDS ORDERED: OPTIRAY 320 125ml IV ONE (11:00)
--- NOTE | 2021-08-31 11:22 | CT Scan Report ---
CT ANGIOGRAPHY OF THE CHEST, PULMONARY EMBOLUS PROTOCOL CLINICAL HISTORY: tachycardia, recent surgery, gastric ca; eval PE COMPARISON STUDY: PET/CT August 15, 2021. Chest radiograph August 30, 2021. TECHNIQUE: Following IV administration of 120 mL of Optiray, helical axial images of the chest were o btained utilizing the pulmonary embolus protocol. Maximal intensity projections and sagittal and cor onal reformats were viewed on an independent 3D workstation. IV contrast was administered without co mplication. Automated exposure control was utilized for the study. A dose lowering technique was ut ilized adhering to the principles of ALARA. CT DOSE: 362.30 mGycm FINDINGS: Left subclavian Gwvocr-p-Olcp is in place. No pulmonary emboli are identified although the segmental and subsegmental pulmonary arteries are suboptimally assessed due to respiratory motion. T here is no pericardial effusion. No enlarged axillary, mediastinal or hilar lymph nodes are present. Small left and trace right pleural effusions have developed since PET/CT of August 15, 2021. Subple ural opacities favor atelectasis. There is no pneumothorax. Central airways are patent. 4 mm solid no ncalcified right middle lobe nodule on image 128 was not clearly evident on prior PET/CT. No suspicio us lesions within the visualized bony thorax. Upper abdominal adenopathy is noted. This is better dep icted on PET/CT of August 15, 2017. Gastric wall thickening is also better depicted on that exam. IMPRESSION: 1. No pulmonary emboli identified although segmental and subsegmental pulmonary arteries suboptimally assessed due to respiratory motion artifact. 2. Small left and trace right pleural effusions with subpleural opacities favor atelectasis. 3. Indeterminate 4 mm right middle lobe nodule, not clearly evident on PET/CT of August 15, 2021. 4. Gastric wall thickening consistent with known malignancy and abdominal adenopathy, better depicted on PET/CT of August 15, 2021. ACT 112: Negative or not required by law. Electronically signed by: Andrew Spears M.D. 08/31/2021 11:20 AM
--- NOTE | 2021-08-31 13:36 | Progress Notes ---
DATE OF SERVICE: 08/31/2021. DIAGNOSES: 1. Acute blood loss anemia. 2. Poorly differentiated adenocarcinoma of the stomach. 3. Iron deficiency anemia. 4. Gastroesophageal reflux disease. SUBJECTIVE: The patient is a very pleasant 55-year-old gentleman well known to [facility] with recent diagn osis of locally advanced adenocarcinoma of the stomach. He is now on hospital day 8 status post lapa rotomy, identifying a large pool of blood in his abdomen, approximately 1800 mL to be precise. He wa s subsequently supported via transfusion and supplemental iron. More recently enteral feedings have started to ensure a jejunostomy tube is functioning properly in preparation to get him discharged alex e. His bowels continue to be somewhat tenuous, but is now generating bowel sounds and flatulence. I spoke to Dr. House the hospitalist who believes he may be ready for discharge today. The patient of course is becoming a bit more anxious because his treatment has been delayed. We will plan on comme ncing salvage chemotherapy this coming Sunday. For the most part, pain has been reasonably well cont rolled. However, the most problematic issue is that of his back and discomfort, probably more attrib utable to the fact he has been bedbound and the hospital beds are not tremendously comfortable. OBJECTIVE: GENERAL: Very pleasant 55-year-old gentleman in no acute distress. VITAL SIGNS: Temperature 37.1, pulse 85, respiratory rate 18, blood pressure 139/67. SKIN: Warm, dry, noncyanotic. HEENT: Throat clear. No buccal lesions or ulcerations. NECK: Supple without JVD or thyromegaly. LYMPH: No cervical, supraclavicular nodes. HEART: Regular rate and rhythm. LUNGS: Clear to auscultation bilaterally. ABDOMEN: Surgical dressing intact. Bowel sounds are active. EXTREMITIES: Trace peripheral edema in bilateral lower extremities. NEUROLOGIC: Grossly intact. LABORATORY DATA: WBC count 15,910, hemoglobin 8.7, platelet count 245,000. Sodium 134, potassium 3. 8, chloride 106, carbon dioxide 24, creatinine 0.46, BUN 18, albumin 2.8. IMPRESSION: 1. Acute blood loss anemia attributable to retroperitoneal bleed. 2. Locally advanced adenocarcinoma of the stomach. 3. Hypoalbuminemia. 4. Iron deficiency. PLAN: The patient is well known at [facility] with recent diagnosis of locally advanced stomach cancer. I had planned for the patient to begin Taxotere and Cisplatin q. 3 weeks. However, on the day of chemo therapy, he presented to the hospital with severe anemia. He was taken to the operating room and lar ge pool of blood was removed and bleeding stabilized. He has since received transfusional support an d supplemental iron. More recently started enteral feedings, which thus far seems to be going well. He is receiving [address] House from the hospitalist service advised me, the patient may be able to go home today or perhaps tomorrow. Thus, I am planning to proceed with salvage chemothera py early next week. Thank you for assisting me in the care of this very pleasant gentleman. Job ID: [id number]
--- NOTE | 2021-09-01 14:11 | Discharge Summary ---
Date of Service August 31, 2021 Admission HPI Per Admitting Provider This is a 55-year-old gentleman with a history of esophageal cancer. Patient follows at [facility] with Dr. Cruzito Ritter of hematology oncology. The patient was to have chemotherapy initiated on 08/23/2021 (which is today) and follow-up chemotherapy consideration was being given to having patient undergo radiation therapy. Once these modalities were complete according to the patient and his consideration was going to be given to having the patient be evaluated by thoracic surgeon for consideration of esophagectomy. In anticipation of patient's need for chemotherapy he was seen by Dr. Pederson and on 08/22/2021 the patient had a left subclavian a port placed and he also had a J-tube placed via a laparoscopic approach. He also had an umbilical hernia repair at the same time. The patient notes initially after his surgery he was doing well. He did experience some abdominal pain but he merely thought that this was just routine postoperative pain. He notes that throughout the course o f the evening following his surgery his pain became worse. The patient denies any fevers, shakes, chills. He did experience nausea without vomiting. He has not had a bowel movement since his surgery but is passing flatus. In addition he notes that his abdomen is more distended and bloated since his surgical procedure. Since his J-tube is in place he has noted a small amount of serosanguineous drainage from around the tube and he has not used the tube for any tube feeds or flushes. As the patient lives near [facility] he presented there due to his abdominal pain. While at this facility he did have a CT scan of the abdomen and pelvis that showed high density material at the gastroesophageal junction which was felt to potentially represent a small amount of hemorrhage. There is also perihepatic and perisplenic fluid along with free fluid throughout the abdomen and pelvis. The patient was noted to have a jejunostomy did appear to be in place on this study. Concerning the patient's esophageal cancer the patient says that he is still able to eat solid food. He says that if he does not chew his food very thoroughly it sometimes will get stuck. Patient reports that he is a lifetime non-smoker but he does have a history of alcohol use in the past. He has no history of DVT or PE. He notes his most recent oral intake was some liquids at approximately 4:00 PM on 08/22/2021 but is otherwise not had anything by mouth since then. In addition the patient notes that he has required multiple transfusions due to anemia related to his cancer. Since arrival to [facility] the patient has had a chest x-ray taken. This showed that he had a left subclavian a port that appeared to be in good position. There did not appear to be any pneumothorax. There is no evidence of pleural effusion. There not appear to be any free air noted. The gastric bubble was visualized under the left hemidiaphragm. CBC has been performed and white blood cell count is noted to be 12.3. His hemoglobin and hematocrit were 7.6 and 25.2.. Platelet count is noted to be 382,000. Coagulation studies and a comprehensive metabolic profile along with a magnesium level are all pending. At the time of my interview the patient was resting comfortably in bed. He did not appear to be in any distress. He was noted to be afebrile and normotensive. He had a slight tachycardia with a heart rate of 107. His pulse ox is 10 percent on room air. Principal Diagnosis s/p exploratory laparotomy hemoperitoneum esophageal cancer Discharge Exam awake/alert, sitting up at edge of bed eating bfast Gastrointestinal (Abdomen) Inspection/Auscultation: + abdomen distended and + abdominal surgical incision (c/d/i no signs of infection) Percussion/Palpation: abdomen soft; abdomen nontender Discharge Data Allergies Allergy/AdvReac Type Severity Reaction Status Date / Time No Known Allergies Allergy Verified 08/22/21 08:24 Consultations 08/23/21 02:16 Consult Hospitalist Routine 08/23/21 02:28 Consult Hematology Routine 08/23/21 05:46 Consult Secured Entrance Monitor Routine Procedures Performed Operation Date: 08/23/21 04:00 Actual Procedures p Exploratory Laparotomy, Abdominal Washout - Ricardo Pederson, Ordered Studies 08/31/21 10:01 CT angio chest PE protocol Stat Hospital Course (1) S/P exploratory laparotomy: This is a 55y M with a history of esophageal cancer who was s/p mediport placement, umbilical hernia repair, and laparoscopic jejunostomy tube placement on 08/22/21. He was discharged to home s/p procedure without event. Unfortunately that evening he developed abdominal distention/pain and a CT scan at outside hospital noted concern for post op bleeding and he was transferred to the [facility]. He was subsequently taken to the OR on 08/23 for an exploratory laparotomy with evacuation of hematoma, no active bleeding was found. Post op he had a koo and GEORGE drain. He was transferred to the ICU for close monitoring. Patient received a total of 3 units pRBC's during his admission, which included 1 pre op and 2 units on POD#1. Post operatively patient's hbg was monitored and remained stable without evidence of further bleeding. He was eventually stable for transfer out of the ICU to telemetry nursing floor. Koo removed and patient able to void. The hospitalist service was consulted to follow along for medical management throughout his admission. He developed a post operative ileus, therefore a diet was initiated slowly and advanced throughout the course of his hospitalization as he recovered and started having + bowel function. He was started on TPN via his port for supplemental nutrition. This was eventually turned off and patient was trialed on TEN via his J-tube and advanced per wire drawing setter's recommendations. GEORGE drain was removed prior to discharge as output remained serosanguineous. He was tolerating 40mL/hour by time of discharge with plans to continue titrating it up to goal at home. In addition he was tolerating some of an oral diet. On 08/31 patient's chest was scanned via CT to rule out PE given tachycardia over several days, that returned negative. Tachycardia likely related to anemia and illness. On 08/31 the patient was deemed stable for discharge to home with plans to follow up with Dr. Pederson in 1 week and with Oncology for initiation of chemotherapy. Total Time Total Time Spent Total Time Spent (In Minutes): 20 Discharge Plan Discharge Items Patient Disposition: Home - Self-Care Reason For Visit: HEMOPERITONEUM Discharge Diagnosis: mediport placement, umbilical hernia repair, jejunostomy tube placement abdominal washout for post surgical bleeding Activity: Per Instructions section Lifting: No more than 10 pounds Bathing Comment: may shower; no soaking in tubs/pools Exercise/Sports: Wait until after follow-up appointment Driving/Machine Use: Resume 3 days after discharge Non-emergency contact: Surgeon Call non-emergency contact if: you have any medication questions, your symptoms worsen, your pain is not controlled, your pain is worsening, your pain is concerning for you, you have a fever, your temperature is above 101.5, your wound has increased redness, your wound has increased drainage and your wound pain has increased Follow-up/Referrals: Cruzito Ritter DO [Physician] - (Dr Ritter will arrange your first cancer treatment within the next week) Ricardo Pederson DO [Surgeon] - (Call to schedule follow up with Dr. Pederson in clinic within 2 weeks) Uzair Coffman PA-C [Primary Care Provider] - Diet: Regular Addtl Attending Provider Instructions: Flush j-tube with 60cc of water before and after j tube feedings and also twice during the day to prevent clogs TEN Regimen: Peptamen 1.5 to be administered via J-tube at a rate of 40mL/hour over 11 hours nocturnally starting tonight. If tolerates you may advance TEN rate by 10mL/hour nightly until you reach a goal of 80mL/hour over 11 hours. Cover the area where your drain was with a piece of dry 4x4 gauze and medical tape. Change dressing daily until the site has healed and is no longer draining fluid. Please complete the full course of antibiotic prescribed to you Please call Dr. Devi's office to schedule your next appointment Addtl Prize Fighter Provider Instructions: Mr Zhang, Recommendations from the hospitalist team - 1. please discontinue your omeprazole. 2. in its place please take pantoprazole 40mg once daily every morning; script sent in to [facility]. 3. continue carafate (sucralfate) 1gm twice daily as previous; I sent a refill in for you. 4. please take xuye-lze-norbdbk vitamin b12 1000mcg daily. They have a subl ingual product that will absorb in your mouth. Please ask your pharmacy about this. I would take for at least [address] scan of the chest did NOT show blood clots. Your tachycardia (high heart rate) was likely due to pain, anemia, anxiety, etc. 6. see Dr Ritter this coming week for your cancer treatments. Enjoy being home, and it was my pleasure to meet you and help with your care! Dr House Pending Studies at Discharge: No Stand-Alone Forms: My [employer], Smoking Cessation Medications and DC Order Prescriptions: New amoxicillin-pot clavulanate 875-125 mg tablet 1 tab PO BID Qty: 14 RF: 0 cyanocobalamin (vitamin B-12) 1,000 mcg lozenge 1,000 mcg sublingual DAILY Qty: 50 RF: 5 Continued multivitamin Tablet 1 tab PO DAILY RF: 0 oxycodone 5 mg tablet 5 mg PO Q4H PRN (Reason: Pain) RF: 0 acetaminophen [Tylenol Extra Strength] 500 mg tablet 500 mg PO QID PRN (Reason: Pain) RF: 0 polyethylene glycol 3350 [Miralax] 17 gram/dose powder 17 g PO DAILY RF: 0 ondansetron HCl 8 mg tablet 8 mg PO Q8 PRN (Reason: Nausea) RF: 0 olanzapine 2.5 mg tablet 2.5 mg PO UD RF: 0 sucralfate [Carafate] 1 gram tablet 1 g PO BID Qty: 60 RF: 2 pantoprazole [Protonix] 40 mg tablet,delayed release (DR/EC) 40 mg PO QAM Qty: 30 RF: 5 Discontinued omeprazole 20 mg capsule,delayed release(DR/EC) 20 mg PO QPM RF: 0 dronabinol [Marinol] 5 mg capsule 5 mg PO BID RF: 0 Discharge Orders: Discharge Order (Routine); Ordered 08/31/21 Ordered By: Bhavana Soto Admission Data Admit Date/Time: 08/23/21 04:33 Attending Provider: Ricardo Pederson Admit Provider: Lopez Dunbar Primary Care Provider: Uzair Coffman Other Providers: Cruzito Ritter V. ; [facility] ; Aleks House Other Interventions: Discharge Summary Assessment (RN) Last Done: 08/31/21 14:02 Coding Level of Care Code D/C DAY MANAGEMENT <30 MINS Diagnoses S/P exploratory laparotomy Z98.890
== END 2021-08-31 15:09 | disposition home or self-care (01) | DRG 907 ==
LOC: ED 01:29 → OR 03:30 → 1E 04:33 → 2N 15:38

== ENCOUNTER 2021-11-22 09:49 | Inpatient (IN) ==
[2021-11-22] MEDS ORDERED: SODIUM CHLORIDE 0.9% 1000ML 1,000 ML IV SCH (11:15)
--- NOTE | 2021-11-22 11:44 | XRay Report ---
XR chest 1V portable CLINICAL HISTORY: Sepsis. COMPARISON STUDY: PET/CT October 26, 2021. Chest CT August 31, 2021. FINDINGS: Left subclavian Ndyqjg-h-Ywar is in place. There is no pneumothorax. No definite pleural ef fusion is identified. 4.8 x 2.4 cm right lower lung density has developed since prior exam. There is reticulonodular interstitial thickening. Cardiomediastinal silhouette is stable. Lung volumes are dim inished, unchanged. IMPRESSION: 1. 4.8 x 2.4 cm right lower lung density which has developed since prior exam. This could reflect ple ural fluid along the fissure or a focus of pneumonia. Radiographic follow-up to ensure resolution is recommended. 2. Increase in reticulonodular interstitial thickening. This could reflect pulmonary edema or an infe ctious process. ACT 112: Negative or not required by law. Electronically signed by: Andrew Spears M.D. 11/22/2021 11:42 AM
[2021-11-22 11:56] LABS: Partial Thromboplastin Ratio 0.8; Partial Thromboplastin Time 21.9 Seconds (21.0-31.0); Prothrombin Time 10.8 Seconds (9.0-12.0)
[2021-11-22 11:58] LABS: Hematocrit (blood only) 31.7 % (42-52); Hemoglobin 9.8 g/dL (14.0-18.0); Immature Granulocytes # (auto) 0.02 K/uL (0.00-0.02); Immature Granulocytes % (auto) 0.4 %; Lymphocytes # (auto) 0.48 K/uL (1.2-3.4); Lymphocytes % (auto) 9.9 %; Mean Corpuscular Hemoglobin 28.3 pg (25-34); Mean Corpuscular Hgb Conc 30.9 g/dL (32-36); Mean Corpuscular Volume 91.6 fL (80-100); Mean Platelet Volume 8.5 fL (7.4-10.4); Monocytes # (auto) 0.46 K/uL (0.11-0.59); Monocytes % (auto) 9.5 %; Neutrophils # (auto) 3.88 K/uL (1.4-6.5); Neutrophils % (auto) 80.2 %; Platelet Count 337 K/uL (130-400); RDW Coefficient of Variation 17.8 % (11.5-14.5); RDW Standard Deviation 59.1 fL (36.4-46.3); Red Blood Count 3.46 M/uL (4.7-6.1); White Blood Count 4.84 K/uL (4.8-10.8)
[2021-11-22 11:59] LABS: iSTAT Hemoglobin 9.2 g/dl (14.0-18.0); iSTAT Ionized Calcium 1.13 mmol/l (1.12-1.32); iSTAT Potassium 3.9 mmol/L (3.3-5.0)
[2021-11-22] MEDS ORDERED: OPTIRAY 320 100ml IV ONE (11:59)
[2021-11-22 12:13] LABS: Albumin Globulin Ratio 1.1 (0.9-2); BUN Creatinine Ratio 43.6 (10-20); Bilirubin,Total 0.3 mg/dl (0.2-1.0); Calcium 9.5 mg/dl (8.5-10.1); Creatinine Clr Calc Pharmacy 71.9 ml/min; Est GFR (African American) 104.6 ml/min; Est GFR (Non-African American) 90.3 ml/min; Globulin 3.8 gm/dl (2.5-4.0); Magnesium 2.6 mg/dl (1.7-2.4); Total Protein 7.8 gm/dl (6.0-8.3)
--- NOTE | 2021-11-22 12:40 | CT Scan Report ---
CT abd pelvis IV con only CLINICAL HISTORY: abd pain hx esophogeal cancer TECHNIQUE: Helical axial images of the abdomen and pelvis were obtained and displayed. Automated dose lowering techniques and/or adjustment according to patient size were utilized for this exam. This e xam was performed with intravenous contrast. CT DOSE: 303.04 mGy.cm COMPARISON: Comparison is made to PET/CT 10/26/2021 FINDINGS: Lower chest: There is a small right and trace left pleural effusion. Partial visualization of multip le foci of atelectasis versus scarring as well as tree in bud nodularity in the lower lungs. Liver: Subcentimeter hypodensities are seen in the liver compatible with cysts. Gallbladder and biliary tree: No calcified gallstones. Normal caliber wall. No intra- or extrahepatic biliary ductal dilation. Pancreas: Unremarkable, no focal lesions. Spleen: Unremarkable. Adrenals: Unremarkable. Kidneys and ureters: Unremarkable. Bladder: Unremarkable. Reproductive organs: Unremarkable. Bowel: Multiple distended loops of small bowel are seen. These measure up to 44 mm in diameter. No tr ansition point is seen. The colon contains a large amount of gas. A loop of bowel enters a left ingui nal hernia. Lymph nodes Retroperitoneal: Subcentimeter lymph nodes are noted. Mesenteric: Subcentimeter lymph nodes are noted. Pelvic: Subcentimeter lymph nodes are noted. Peritoneum: Multiple tiny tissue nodules are seen in the perinephric spaces. Vessels: Unremarkable. Abdominal wall: Left femoral hernia contains a loop of sigmoid colon. Bones: Degenerative changes in the visualized spine. IMPRESSION: 1. Gaseous distention of numerous small bowel loops compatible with ileus or partial obstruction. Th e colon remains distended. A loop of colon is seen in the left inguinal hernia. 2. Soft tissue densities in the right greater than left retroperitoneum are seen, nonspecific. This region demonstrated mild DJD uptake on prior PET/CT. Subcentimeter lymph nodes are seen throughout th e abdomen. ACT 112: Negative or not required by law. Electronically signed by: Javy Sanderson M.D. 11/22/2021 12:38 PM
[2021-11-22 12:41] LABS: Appearance Urine Cloudy (Clear); Bacteria Urine Automated Negative (Negative); Bilirubin Urine Negative (Negative); Blood Urine 3+ (Negative); Color Urine Dark Yellow; Epithelial Cell Urine Auto >30 /lpf (0-5); Glucose Urine UA Negative (Negative); Ketones Urine Trace (Negative); Leukocyte Esterase Urine Negative (Negative); Nitrite Urine Negative (Negative); Protein Urine 2+ (Negative); Specific Gravity Urine 1.034 (1.000-1.030); Urobilinogen Urine Negative (Negative)
--- NOTE | 2021-11-22 14:05 | Surgery Consultation ---
Date of Consultation November 22, 2021 Assessment & Plan (1) Partial small bowel obstruction: This is a 56yM with a h/o esophageal ca who presents to the [facility] ED on 11/22/21 with complaints of abdominal pain and nausea starting yesterday. He has a history of lap assisted j tube placement and mediport placement on 08/22 and take-back to the OR for ex-lap and abdominal washout on 08/23 for post op bleeding. Patient has been on chemotherapy and he started a new regimen last Sunday. Symptoms began around that time of a mix of diarrhea/constipation along with nausea/vomiting and abdominal pain that started up yesterday. A CT a/p revealed gaseous distention of numerous small bowel loops compatible with ileus or partial obstruction. WBC 4.8. He is tachycardic to the 110's-120's. On exam patient's abdomen is distended with some generalized discomfort to palpation. We attempted to aspirate some fluid from his j-tube, got about 60cc return. With patient's history of esophageal cancer he may be a difficult NGT placement. He is not vomiting today. We can trial placing his J tube to gravity. If he develops further n/v, worsening abdominal symptoms, we may need to consider GI for endoscopic NGT placement should it come to that point. Keep patient NPO with IVF for bowel rest. We will follow. Supervising Physician Co-Signing Physician Notes Patient seen and examined, labs and image reviewed, agree with above. Patient with known esophageal cancer currently on chemotherapy with history of J-tube placement in the past presented with abdominal distention and vomiting. Recently change his chemotherapy regimen, symptoms started shortly after. He is passing flatus. On exam he is afebrile, mild tachycardia and hypertension. Abdomen is distended and tympanitic to percussion, minimal tenderness with no guarding. Reducible left inguinal hernia. Labs with normal white blood cell count. CT scan was personally reviewed and interpreted and then again reviewed with radiology. He has moderate distention throughout his GI tract indicative of an ileus. There is no transition point identified. There is a colon containing left inguinal hernia but there is gas proximal and distal to this. There is no evidence of a small bowel or large bowel obstruction at this time. Ileus secondary to chemotherapy Can try venting J-tube, monitor electrolytes closely. N.p.o., IV fluids, correct electrolyte deficiencies If symptoms persist may benefit from rectal tube and/or NG tube for decompression, may need GI assistance with this. May benefit from rectal stimulation with suppositories. Surgery will follow. History of Present Illness History of Present Illness This is a 56yM with a h/o esophageal ca who presents to the [facility] ED on 11/22/21 with complaints of abdominal pain and nausea. Of note patient underwent a jejunostomy tube placement and mediport placement on 08/22/[address] Pederson. This was complicated by bleeding requiring an ex-lap and abdominal washout. Post operatively patient had an ileus and was started on TPN, as ileus resolved TPN was discontinued and he was discharged on an oral diet in addition to nightly J tube feedings. He has been using his j tube without issues as well as his mediport for Chemo. Starting last week patient reports starting a new chemotherapy regimen. Since then he has been battling with intermittent diarrhea and constipation. He also noticed about a 10 pound weight loss and says his appetite has not been great. Starting yesterday he noticed his abdomen became painful and distended. He developed nausea/vomiting. He tried using his j-tube overnight for feeds, but it keep signalling with an error message and he ended up turning it off due to his abdominal discomfort. Due to ongoing symptoms he presented to the ER today. A CT a/p revealed gaseous distention of numerous small bowel loops compatible with ileus or partial obstruction. A loop of colon is seen in the left inguinal hernia. Patient reports passing flatus. He had no vomiting today. Allergies Allergy/AdvReac Type Severity Reaction Status Date / Time No Known Allergies Allergy Verified 09/26/21 14:08 Home Medications Medication Instructions Recorded Confirmed Type acetaminophen 500 mg tablet 500 mg PO QID PRN 08/16/21 09/05/21 History (Tylenol Extra Strength) multivitamin 1 tab PO DAILY 08/16/21 09/05/21 History oxycodone 5 mg tablet 5 mg PO Q4H PRN 08/16/21 09/05/21 History olanzapine 2.5 mg tablet 2.5 mg PO UD 08/23/21 09/05/21 History ondansetron HCl 8 mg tablet 8 mg PO Q8 PRN 08/23/21 09/05/21 History amoxicillin 875 mg-potassium 1 tab PO BID #14 tab 08/31/21 09/05/21 Rx clavulanate 125 mg tablet cyanocobalamin (vitamin B-12) 1,000 mcg SUBLINGUAL DAILY #50 ea 08/31/21 09/05/21 Rx 1,000 mcg sublingual lozenge pantoprazole 40 mg tablet,delayed 40 mg PO QAM #30 tab 08/31/21 09/05/21 Rx release (Protonix) sucralfate 1 gram tablet (Carafate) 1 g PO BID #60 tab 08/31/21 09/05/21 Rx silver sulfadiazine 1 % topical 1 applic TOPICAL BID PRN #50 g 09/05/21 09/05/21 Rx cream (Silvadene) Patient History Medical History (Updated 11/22/21 @ 14:25 by Ariela Drummond PA-C) 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" following with [facility] Gastric cancer "poorly differentiated adenocarcinoma" following with [facility] Gastritis GERD (gastroesophageal reflux disease) Iron deficiency anemia Left inguinal hernia Umbilical hernia Surgical History H/O esophagogastroduodenoscopy H/O exploratory laparotomy (08/22/21) Exploratory Laparotomy, Abdominal Washout - Ricardo Pederson DO 08/22/2021 H/O hernia repair RT INGUINAL HERNIA X 2 Jejunostomy tube present (08/22/21) p Insertion of Infusaport Left Subclavian(Left) - Ricardo Pederson DO s Laproscopic Assisted Jejunostomy Tube Placement with Repair of Umbilical Hernia(Not Applicable) - Ricardo Pederson DO 08/22/21 Port-A-Cath in place (08/22/21) p Insertion of Infusaport Left Subclavian(Left) - Ricardo Pederson DO s Laproscopic Assisted Jejunostomy Tube Placement with Repair of Umbilical Hernia- Ricardo Pederson DO 08/22/21 S/P rotator cuff repair RT [place] teeth removed Family History Father Cancer Prostate Grandmother (Paternal) Cancer Lung cancer Other No family history of adverse response to anesthesia Social History Smoking Status: Never smoker Second Hand Exposure: Yes (As a child); Hx Alcohol Use: Yes Alcohol type: beer and wine Alcohol Intake Frequency Comment: daily Hx Substance Use: Yes Non-Prescribed Medications: Marijuana Last Used Substance: Days (ago) Last Used Substance Other:: LAST USED>THIS WEEK *ADVISED by RN Preferred Language: Y[place]ut Communication Ability: Effective Visual Impairment: No Limitations Hearing Ability: Normal Research And Development Engineer Required: No Beliefs That Will Affect Care: None marital status: Current Living Situation: Family current occupational status: employed 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 [employer] How many Children do You have: 1 Feels Safe at Home: Yes Diet Comment: Ensure supplement daily during the past year weight has: decreased > 10 lbs Assistive Devices: None Review of Systems Constitutional: + anorexia; no fever and no chills Respiratory: no dyspnea Gastrointestinal: + abdominal pain, + bloating, + nausea, + vomiting and + change in bowel habits Physical Exam Physical Exam: awake/alert, no acute distress Respiratory: normal respiratory effort Gastrointestinal (Abdomen): Inspection/Auscultation: + abdomen distended Percussion/Palpation: + abdomen tender (moderate generalized discomfort to palpation) and abdomen soft J tube capped Results & Data ([facility]) Vital Signs (Past 12 Hours) Vital Signs Temp Pulse Pulse Resp BP BP Pulse Ox 11/22/21 12:00 119 H 18 181/112 H 96 11/22/21 11:06 128 H 18 183/120 H 96 11/22/21 09:56 36.7 C 131 H 18 165/[address] abd pelvis IV con only CLINICAL HISTORY: abd pain hx esophogeal cancer TECHNIQUE: Helical axial images of the abdomen and pelvis were obtained and displayed. Automated dose lowering techniques and/or adjustment according to patient size were utilized for this exam. This exam was performed with intra venous contrast. CT DOSE: 303.04 mGy.cm COMPARISON: Comparison is made to PET/CT 10/26/2021 FINDINGS: Lower chest: There is a small right and trace left pleural effusion. Partial visualization of multiple foci of atelectasis versus scarring as well as tree in bud nodularity in the lower lungs. Liver: Subcentimeter hypodensities are seen in the liver compatible with cysts. Gallbladder and biliary tree: No calcified gallstones. Normal caliber wall. No intra- or extrahepatic biliary ductal dilation. Pancreas: Unremarkable, no focal lesions. Spleen: Unremarkable. Adrenals: Unremarkable. Kidneys and ureters: Unremarkable. Bladder: Unremarkable. Reproductive organs: Unremarkable. Bowel: Multiple distended loops of small bowel are seen. These measure up to 44 mm in diameter. No transition point is seen. The colon contains a large amount of gas. A loop of bowel enters a left inguinal hernia. Lymph nodes Retroperitoneal: Subcentimeter lymph nodes are noted. Mesenteric: Subcentimeter lymph nodes are noted. Pelvic: Subcentimeter lymph nodes are noted. Peritoneum: Multiple tiny tissue nodules are seen in the perinephric spaces. Vessels: Unremarkable. Abdominal wall: Left femoral hernia contains a loop of sigmoid colon. Bones: Degenerative changes in the visualized spine. IMPRESSION: 1. Gaseous distention of numerous small bowel loops compatible with ileus or partial obstruction. The colon remains distended. A loop of colon is seen in the left inguinal hernia. 2. Soft tissue densities in the right greater than left retroperitoneum are seen, nonspecific. This region demonstrated mild DJD uptake on prior PET/CT. Subcentimeter lymph nodes are seen throughout the abdomen. ACT 112: Negative or not required by law. Electronically signed by: Javy Sanderson M.D. 11/22/2021 12:38 PM PG Care Time/CCT Total # of Minutes Spent Total Time Spent with Patient: Total time spent is greater than 50% in coordination of care (as documented) at patient's floor/unit and/or counseling patient: Coding Level of Care Code 17207 Inpt Consult Level 3 Diagnoses Partial small bowel obstruction K56.600
[2021-11-22] MEDS ORDERED: PIPERACILLIN/TAZOBACTAM 4.5 GM/120 ML BAG IV ONE (14:19)
[2021-11-22] MEDS ORDERED: VANCOMYCIN HCL 1,250 MG in SODIUM CHLORIDE 0.9% 500 ML IV ONE (14:19)
[2021-11-22] MEDS ORDERED: VANCOMYCIN CONSULT ACTIVE PRN (14:19)
--- NOTE | 2021-11-22 14:19 | Emergency Department Note ---
History of Present Illness General Chief Complaint: Abdominal Pain Stated Complaint: SEVERE ABD PAIN,DIARRHEA,ELEVATED BP,HEART RATE Time Seen by Provider: 11/22/21 11:06 History of Present Illness Provider Complaint: abdominal pain Onset (ago): 2 day(s) Pain Consistency: constant Location: diffuse Severity: moderate Maximum Pain Intensity: 7 Current Pain Intensity: 7 Quality: + stabbing, + aching, + sharp and + dull Relieved By: + nothing Exacerbated By: + nothing Context: no foreign travel, no possible food poisoning, no sick contacts, no recent antibiotic use, no recent surgery/procedure or no recent injury Associated Symptoms: + nausea, + vomiting and + constipation; no fever, no chills, no dysuria, no hematemesis, no hematochezia, no melena, no hematuria, no syncope, no headache, no neck pain, no back pain, no chest pain and no breathing difficulty Patient has a history of esophageal cancer and is being treated by Dr. Kathy Aragon [facility] onc[facility]. He states he recently had his chemotherapy regimen changed. Home Medications Medication Instructions Recorded Confirmed Type acetaminophen 500 mg tablet 500 mg PO QID PRN 08/16/21 09/05/21 History (Tylenol Extra Strength) multivitamin 1 tab PO DAILY 08/16/21 09/05/21 History oxycodone 5 mg tablet 5 mg PO Q4H PRN 08/16/21 09/05/21 History olanzapine 2.5 mg tablet 2.5 mg PO UD 08/23/21 09/05/21 History ondansetron HCl 8 mg tablet 8 mg PO Q8 PRN 08/23/21 09/05/21 History amoxicillin 875 mg-potassium 1 tab PO BID #14 tab 08/31/21 09/05/21 Rx clavulanate 125 mg tablet cyanocobalamin (vitamin B-12) 1,000 mcg SUBLINGUAL DAILY #50 ea 08/31/21 09/05/21 Rx 1,000 mcg sublingual lozenge pantoprazole 40 mg tablet,delayed 40 mg PO QAM #30 tab 08/31/21 09/05/21 Rx release (Protonix) sucralfate 1 gram tablet (Carafate) 1 g PO BID #60 tab 08/31/21 09/05/21 Rx silver sulfadiazine 1 % topical 1 applic TOPICAL BID PRN #50 g 09/05/21 09/05/21 Rx cream (Silvadene) Allergies Allergy/AdvReac Type Severity Reaction Status Date / Time No Known Allergies Allergy Verified 09/26/21 14:08 Past Med/Surg History Medical History 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" following [facility] Gastric cancer "poorly differentiated adenocarcinoma" following with [facility] Gastritis GERD (gastroesophageal reflux disease) Iron deficiency anemia Left inguinal hernia Umbilical hernia Surgical History H/O esophagogastroduodenoscopy H/O exploratory laparotomy (08/22/21) Exploratory Laparotomy, Abdominal Washout - Ricardo Pederson DO 08/22/2021 H/O hernia repair RT INGUINAL HERNIA X 2 Jejunostomy tube present (08/22/21) p Insertion of Infusaport Left Subclavian(Left) - Ricardo Pederson DO s Laproscopic Assisted Jejunostomy Tube Placement with Repair of Umbilical Hernia(Not Applicable) - Ricardo Pederson DO 08/22/21 Port-A-Cath in place (08/22/21) p Insertion of Infusaport Left Subclavian(Left) - Ricardo Pederson DO s Laproscopic Assisted Jejunostomy Tube Placement with Repair of Umbilical Hernia- Ricardo Pederson DO 08/22/21 S/P rotator cuff repair RT [place] teeth removed Family History Father Cancer Prostate Grandmother (Paternal) Cancer Lung cancer Other No family history of adverse response to anesthesia Social History Smoking Status: Never smoker Second Hand Exposure: Yes (As a child); Hx Alcohol Use: Yes Alcohol type: beer and wine Alcohol Intake Frequency Comment: daily Hx Substance Use: Yes Non-Prescribed Medications: Marijuana Last Used Substance: Days (ago) Last Used Substance Other:: LAST USED>THIS WEEK *ADVISED by RN Preferred Language: Kyrgyz Communication Ability: Effective Visual Impairment: No Limitations Hearing Ability: Normal Eye Glass Frame Polisher Required: No Beliefs That Will Affect Care: None marital status: Current Living Situation: Family current occupational status: employed current occupation: [employer] How many Children do You have: 1 Feels Safe at Home: Yes Diet Comment: Ensure supplement daily during the past year weight has: decreased > 10 lbs Assistive Devices: None Review of Systems A total of 10 systems reviewed and were otherwise negative Physical Exam Vital Signs: Vital Signs - 24 hr 11/22/21 09:56 11/22/21 11:06 11/22/21 12:00 Temperature 36.7 C Temperature Source Temporal Artery Sc an Pulse Rate 131 H Pulse Rate [Right Finger] 128 H 119 H Pulse Rhythm Regular Pulse Rhythm [Righ t Finger] Regular Regular Pulse Strength Normal Pulse Strength [Ri ght Finger] Normal Normal Respiratory Rate 18 18 18 Respiratory Effort / Characteristics Non-Labored Non-Labored Non-Labored Respiratory Depth Normal Normal Normal Respiratory Patter n Regular Regular Regular Blood Pressure 165/102 H Blood Pressure [Ri ght Arm] 183/120 H 181/112 H Blood Pressure Maliha n 123 Blood Pressure Maliha n [Right Arm] 141 135 Blood Pressure Pos ition Sitting Blood Pressure Pos ition [Right Arm] Lying Pulse Oximetry 95 96 96 Oxygen Delivery Me thod Room Air Room Air Room Air Sepsis Recent Feve r Within 48 Hours No Sepsis New/Unexpla ined Change in Men faviola Status No Sepsis Action Take n by Nursing No Action Required Physical Exam: Physical Exam GENERAL: He is oriented to person, place, and time. He appears well-developed and well-nourished. He does not appear distressed. HENT: Exam performed. - Head: Normocephalic and atraumatic. - Right Ear: External ear normal. No mastoid tenderness. - Left Ear: External ear normal. No mastoid tenderness. - Mouth/Throat: The oropharynx is clear and moist. No trismus in the jaw. No dental abscesses or uvula swelling. No oropharyngeal exudate or tonsillar abscesses. EYES: Conjunctivae and EOM are normal. Pupils are equal, round, and reactive to light. Right eye exhibits no discharge. Left eye exhibits no discharge. No scleral icterus. NECK: Normal range of motion. Neck supple. No JVD present. No spinous process tenderness present. No carotid bruit present. No rigidity. No tracheal deviation and normal range of motion present. No Brudzinski's sign and no Kernig's sign noted. CV: Normal rate, regular rhythm, normal heart sounds and intact distal pulses. There is no peripheral edema. Palpable radial pulses bue. PULM/CHEST: Effort normal and breath sounds normal. No respiratory distress. No stridor. He has no wheezes. He has no rales. - Chest Wall: He exhibits no tenderness. ABD: The abdomen is distended and tympanic. Patient has a large left inguinal hernia that he is able to self reduce easily. Jejunostomy tube in place. MUSC/SKEL: Normal range of motion. There is no peripheral edema, tenderness or deformity. LYMPH: No cervical adenopathy. NEURO: He is alert and oriented to person, place, and time. He has normal strength. No cranial nerve deficit or sensory deficit. Coordination and gait normal. GCS eye subscore is 4. GCS verbal subscore is 5. GCS motor subscore is 6. Cerebellar tests wnl. SKIN: Skin is warm and dry. He is not diaphoretic. PSYCH: He has a normal mood and affect. Behavior is normal. Judgment and thought content normal. Course Course 1106: The patient was evaluated in room A10. A complete history and physical exam was performed Cardiac monitoring: An order was placed for continuous cardiac monitoring. The monitor shows a rate of 120 with sinus tachycardia rhythm 1116: Bedside ultrasound shows no large fluid collection of ascites. 1425: Labs within normal limits. CT of the abdomen shows gaseous distention of numerous small bowel loops compatible with ileus/partial obstruction. Colon remains distended. Loops of colon is seen in the left inguinal hernia. The patient's history and physical exam is more concerning with partial obstruction. Chest x-ray shows a 4.8 x 2.4 cm right lower lung density which could represent fluid along the fissure or focus of pneumonia. Given the patient's immunocompromise, patient will be empirically treated with broad-spectrum antibiotics Zosyn and vancomycin. Patient will be admitted to the [facility] team. Dr. Echols team notified. Spoke with general surgery Gurpreet Lemus he agrees to be on consult for the patient. Administered Medications Discontinued Medications Sodium Chloride (Nss 1000ml) 1,000 mls @ 999 mls/hr IV .Q1H1M TIM Stop: 11/22/21 12:15 Last Infusion: 11/22/21 13:35 Dose: 0 mls/hr Documented by: [id number] Admin: 05/24/22 12:12 Dose: 999 mls/hr Documented by: [id number] Ioversol (Optiray 320 100ml) 93 ml IV ONCE ONE Stop: 11/22/21 12:00 Last Admin: 11/22/21 12:01 Dose: 93 ml Documented by: [id number] Medical Decision Making Laboratory Data Result diagrams: 11/22/21 11:23 11/22/21 11:23 Lab Results 11/22/21 11/22/21 11/22/21 Range/Units 11:23 11:23 11:23 WBC 4.84 (4.8-10.8) K/uL RBC 3.46 L (4.7-6.1) M/uL Hgb 9.8 L (14.0-18.0) g/dL POC Hgb (14.0-18.0) g/dl Hct 31.7 L (42-52) % POC Hct (42-52) % MCV 91.6 (80-100) fL MCH 28.3 (25-34) pg MCHC 30.9 L (32-36) g/dL RDW Std Deviation 59.1 H (36.4-46.3) fL RDW Coeff of Briana 17.8 H (11.5-14.5) % Plt Count 337 (130-400) K/uL MPV 8.5 (7.4-10.4) fL Immature Gran % (Auto) 0.4 % Neut % (Auto) 80.2 % Lymph % (Auto) 9.9 % Weston % (Auto) 9.5 % Eos % (Auto) 0.0 % Baso % (Auto) 0.0 % Neut # (Auto) 3.88 (1.4-6.5) K/uL Lymph # (Auto) 0.48 L (1.2-3.4) K/uL Weston # (Auto) 0.46 (0.11-0.59) K/uL Eos # (Auto) 0.00 (0-0.5) K/uL Baso # (Auto) 0.00 (0-0.2) K/uL Immature Gran # (Auto) 0.02 (0.00-0.02) K/uL PT 10.8 (9.0-12.0) Seconds INR 1.0 (0.9-1.1) APTT 21.9 (21.0-31.0) Seconds PTT Ratio 0.8 POC Sodium (135-144) mmol/L Sodium (136-145) mmol/L POC Potassium (3.3-5.0) mmol/L Potassium (3.5-5.1) mmol/L POC Chloride (101-112) mmol/L Chloride (98-107) mmol/L Carbon Dioxide (21-32) mmol/L POC Total CO2 (24-31) mmol/L Anion Gap (3-11) POC Anion Gap (16-25) mmol/L POC BUN (7-18) mg/dl BUN (6-23) mg/dl Creatinine (0.6-1.4) mg/dl POC Creatinine (0.6-1.3) mg/dl Est Cr Clr Drug Dosing ml/min Est GFR ( Amer) ml/min Est GFR (Non-Af Amer) ml/min BUN/Creatinine Ratio (10-20) Glucose (70-99(Fasting)) mg/dl POC Glucose (other) (70-99) mg/dl Lactate (0.4-2.0) mmol/L Calcium (8.5-10.1) mg/dl POC Ioniz Calcium Angelic (1.12-1.32) mmol/l Magnesium (1.7-2.4) mg/dl Total Bilirubin (0.2-1.0) mg/dl AST (13-39) U/L ALT (7-52) U/L Alkaline Phosphatase (34-104) U/L Troponin I High Sens 10.7 (0-20) pg/ml Total Protein (6.0-8.3) gm/dl Albumin (3.4-5.0) gm/dl Globulin (2.5-4.0) gm/dl Albumin/Globulin Ratio (0.9-2) Procalcitonin (0-0.5) ng/ml Urine Color Urine Appearance (Clear) Urine pH (4.5-7.5) Ur Specific [place] (1.000-1.030) Urine Protein (Negative) Urine Glucose (UA) (Negative) Urine Ketones (Negative) Urine Blood (Negative) Urine Nitrite (Negative) Urine Bilirubin (Negative) Urine Urobilinogen (Negative) Ur Leukocyte Esterase (Negative) Urine WBC (Auto) (0-5) /hpf Urine RBC (Auto) (0-4) /hpf U Hyaline Cast (Auto) (0-5) /lpf U Epithel Cells (Auto) (0-5) /lpf Urine Bacteria (Auto) (Negative) Ur Renal Epithelial Cell Granular Casts (0) /lpf Urine Yeast SARS-CoV-2, RNA, NAAT (NEGATIVE) 11/22/21 11/22/21 11/22/21 Range/Units 11:23 11:23 11:23 WBC (4.8-10.8) K/uL RBC (4.7-6.1) M/uL Hgb (14.0-18.0) g/dL POC Hgb (14.0-18.0) g/dl Hct (42-52) % POC Hct (42-52) % MCV (80-100) fL MCH (25-34) pg MCHC (32-36) g/dL RDW Std Deviation (36.4-46.3) fL RDW Coeff of Briana (11.5-14.5) % Plt Count (130-400) K/uL MPV (7.4-10.4) fL Immature Gran % (Auto) % Neut % (Auto) % Lymph % (Auto) % Weston % (Auto) % Eos % (Auto) % Baso % (Auto) % Neut # (Auto) (1.4-6.5) K/uL Lymph # (Auto) (1.2-3.4) K/uL Weston # (Auto) (0.11-0.59) K/uL Eos # (Auto) (0-0.5) K/uL Baso # (Auto) (0-0.2) K/uL Immature Gran # (Auto) (0.00-0.02) K/uL PT (9.0-12.0) Seconds INR (0.9-1.1) APTT (21.0-31.0) Seconds PTT Ratio POC Sodium (135-144) mmol/L Sodium 139 (136-145) mmol/L POC Potassium (3.3-5.0) mmol/L Potassium 4.0 (3.5-5.1) mmol/L POC Chloride (101-112) mmol/L Chloride 97 L (98-107) mmol/L Carbon Dioxide 29 (21-32) mmol/L POC Total CO2 (24-31) mmol/L Anion Gap 13 H (3-11) POC Anion Gap (16-25) mmol/L POC BUN (7-18) mg/dl BUN 41 H (6-23) mg/dl Creatinine 0.94 (0.6-1.4) mg/dl POC Creatinine (0.6-1.3) mg/dl Est Cr Clr Drug Dosing 71.9 ml/min Est GFR ( Amer) 104.6 ml/min Est GFR (Non-Af Amer) 90.3 ml/min BUN/Creatinine Ratio 43.6 H (10-20) Glucose 140 H (70-99(Fasting)) mg/dl POC Glucose (other) (70-99) mg/dl Lactate 1.3 (0.4-2.0) mmol/L Calcium 9.5 (8.5-10.1) mg/dl POC Ioniz Calcium Angelic (1.12-1.32) mmol/l Magnesium 2.6 H (1.7-2.4) mg/dl Total Bilirubin 0.3 (0.2-1.0) mg/dl AST 41 H (13-39) U/L ALT 17 (7-52) U/L Alkaline Phosphatase 109 H (34-104) U/L Troponin I High Sens (0-20) pg/ml Total Protein 7.8 (6.0-8.3) gm/dl Albumin 4.0 (3.4-5.0) gm/dl Globulin 3.8 (2.5-4.0) gm/dl Albumin/Globulin Ratio 1.1 (0.9-2) Procalcitonin 0.34 (0-0.5) ng/ml Urine Color Urine Appearance (Clear) Urine pH (4.5-7.5) Ur Specific [place] (1.000-1.030) Urine Protein (Negative) Urine Glucose (UA) (Negative) Urine Ketones (Negative) Urine Blood (Negative) Urine Nitrite (Negative) Urine Bilirubin (Negative) Urine Urobilinogen (Negative) Ur Leukocyte Esterase (Negative) Urine WBC (Auto) (0-5) /hpf Urine RBC (Auto) (0-4) /hpf U Hyaline Cast (Auto) (0-5) /lpf U Epithel Cells (Auto) (0-5) /lpf Urine Bacteria (Auto) (Negative) Ur Renal Epithelial Cell Granular Casts (0) /lpf Urine Yeast SARS-CoV-2, RNA, NAAT (NEGATIVE) 11/22/21 11/22/21 11/22/21 Range/Units 11:39 11:51 11:51 WBC (4.8-10.8) K/uL RBC (4.7-6.1) M/uL Hgb (14.0-18.0) g/dL POC Hgb 9.2 L (14.0-18.0) g/dl Hct (42-52) % POC Hct 27 L (42-52) % MCV (80-100) fL MCH (25-34) pg MCHC (32-36) g/dL RDW Std Deviation (36.4-46.3) fL RDW Coeff of Briana (11.5-14.5) % Plt Count (130-400) K/uL MPV (7.4-10.4) fL Immature Gran % (Auto) % Neut % (Auto) % Lymph % (Auto) % Weston % (Auto) % Eos % (Auto) % Baso % (Auto) % Neut # (Auto) (1.4-6.5) K/uL Lymph # (Auto) (1.2-3.4) K/uL Weston # (Auto) (0.11-0.59) K/uL Eos # (Auto) (0-0.5) K/uL Baso # (Auto) (0-0.2) K/uL Immature Gran # (Auto) (0.00-0.02) K/uL PT (9.0-12.0) Seconds INR (0.9-1.1) APTT (21.0-31.0) Seconds PTT Ratio POC Sodium 137 (135-144) mmol/L Sodium (136-145) mmol/L POC Potassium 3.9 (3.3-5.0) mmol/L Potassium (3.5-5.1) mmol/L POC Chloride 100 L (101-112) mmol/L Chloride (98-107) mmol/L Carbon Dioxide (21-32) mmol/L POC Total CO2 27 (24-31) mmol/L Anion Gap (3-11) POC Anion Gap 15.0 L (16-25) mmol/L POC BUN 36 H (7-18) mg/dl BUN (6-23) mg/dl Creatinine (0.6-1.4) mg/dl POC Creatinine 1.0 (0.6-1.3) mg/dl Est Cr Clr Drug Dosing ml/min Est GFR ( Amer) ml/min Est GFR (Non-Af Amer) ml/min BUN/Creatinine Ratio (10-20) Glucose (70-99(Fasting)) mg/dl POC Glucose (other) 155 H (70-99) mg/dl Lactate (0.4-2.0) mmol/L Calcium (8.5-10.1) mg/dl POC Ioniz Calcium Angelic 1.13 (1.12-1.32) mmol/l Magnesium (1.7-2.4) mg/dl Total Bilirubin (0.2-1.0) mg/dl AST (13-39) U/L ALT (7-52) U/L Alkaline Phosphatase (34-104) U/L Troponin I High Sens (0-20) pg/ml Total Protein (6.0-8.3) gm/dl Albumin (3.4-5.0) gm/dl Globulin (2.5-4.0) gm/dl Albumin/Globulin Ratio (0.9-2) Procalcitonin (0-0.5) ng/ml Urine Color Dark Yellow Urine Appearance Cloudy A (Clear) Urine pH 5.0 (4.5-7.5) Ur Specific [place] 1.034 H (1.000-1.030) Urine Protein 2+ H (Negative) Urine Glucose (UA) Negative (Negative) Urine Ketones Trace H (Negative) Urine Blood 3+ H (Negative) Urine Nitrite Negative (Negative) Urine Bilirubin Negative (Negative) Urine Urobilinogen Negative (Negative) Ur Leukocyte Esterase Negative (Negative) Urine WBC (Auto) 10-30 H (0-5) /hpf Urine RBC (Auto) 10-30 H (0-4) /hpf U Hyaline Cast (Auto) 10-30 H (0-5) /lpf U Epithel Cells (Auto) >30 H (0-5) /lpf Urine Bacteria (Auto) Negative (Negative) Ur Renal Epithelial Cell Not Reportable Granular Casts 1-5 H (0) /lpf Urine Yeast Not Reportable SARS-CoV-2, RNA, NAAT NEGATIVE (NEGATIVE) Imaging Data Radiologist's Impression: Chest X-Ray 11/22/21 11:06 XR chest 1V portable CLINICAL HISTORY: Sepsis. COMPARISON STUDY: PET/CT October 26, 2021. Chest CT August 31, 2021. FINDINGS: Left subclavian [id number] is in place. There is no pneumothorax. No definite pleural effusion is identified. 4.8 x 2.4 cm right lower lung density has developed since prior exam. There is reticulonodular interstitial thickening. Cardiomediastinal silhouette is stable. Lung volumes are diminished, unchanged. IMPRESSION: 1. 4.8 x 2.4 cm right lower lung density which has developed since prior exam. This could reflect pleural fluid along the fissure or a focus of pneumonia. Radiographic follow-up to ensure resolution is recommended. 2. Increase in reticulonodular interstitial thickening. This could reflect pulmonary edema or an infectious process. ACT 112: Negative or not required by law. Electronically signed by: Andrew Spears M.D. 11/22/2021 11:42 AM Abdomen/Pelvis CT 11/22/21 11:07 CT abd pelvis IV con only CLINICAL HISTORY: abd pain hx esophogeal cancer TECHNIQUE: Helical axial images of the abdomen and pelvis were obtained and displayed. Automated dose lowering techniques and/or adjustment according to patient size were utilized for this exam. This exam was performed with in travenous contrast. CT DOSE: 303.04 mGy.cm COMPARISON: Comparison is made to PET/CT 10/26/2021 FINDINGS: Lower chest: There is a small right and trace left pleural effusion. Partial visualization of multiple foci of atelectasis versus scarring as well as tree in bud nodularity in the lower lungs. Liver: Subcentimeter hypodensities are seen in the liver compatible with cysts. Gallbladder and biliary tree: No calcified gallstones. Normal caliber wall. No intra- or extrahepatic biliary ductal dilation. Pancreas: Unremarkable, no focal lesions. Spleen: Unremarkable. Adrenals: Unremarkable. Kidneys and ureters: Unremarkable. Bladder: Unremarkable. Reproductive organs: Unremarkable. Bowel: Multiple distended loops of small bowel are seen. These measure up to 44 mm in diameter. No transition point is seen. The colon contains a large amount of gas. A loop of bowel enters a left inguinal hernia. Lymph nodes Retroperitoneal: Subcentimeter lymph nodes are noted. Mesenteric: Subcentimeter lymph nodes are noted. Pelvic: Subcentimeter lymph nodes are noted. Peritoneum: Multiple tiny tissue nodules are seen in the perinephric spaces. Vessels: Unremarkable. Abdominal wall: Left femoral hernia contains a loop of sigmoid colon. Bones: Degenerative changes in the visualized spine. IMPRESSION: 1. Gaseous distention of numerous small bowel loops compatible with ileus or partial obstruction. The colon remains distended. A loop of colon is seen in the left inguinal hernia. 2. Soft tissue densities in the right greater than left retroperitoneum are seen, nonspecific. This region demonstrated mild DJD uptake on prior PET/CT. Subcentimeter lymph nodes are seen throughout the abdomen. ACT 112: Negative or not required by law. Electronically signed by: Javy Sanderson M.D. 11/22/2021 12:38 PM [facility] [place] Narrative 1106: The patient was evaluated in room A10. A complete history and physical exam was performed Cardiac monitoring: An order was placed for continuous cardiac monitoring. The monitor shows a rate of 120 with sinus tachycardia rhythm 1116: Bedside ultrasound shows no large fluid collection of ascites. 1425: Labs within normal limits. CT of the abdomen shows gaseous distention of numerous small bowel loops compatible with ileus/partial obstruction. Colon remains distended. Loops of colon is seen in the left inguinal hernia. The patient's history and physical exam is more concerning with partial obstruction. Chest x-ray shows a 4.8 x 2.4 cm right lower lung density which could represent fluid along the fissure or focus of pneumonia. Given the patient's immunocompromise, patient will be empirically treated with broad-spectrum antibiotics Zosyn and vancomycin. Patient will be admitted to the [facility] team. Dr. Echols team notified. Spoke with general surgery Gurpreet Lemus he agrees to be on consult for the patient. Impression & Plan Small bowel obstruction, Pneumonia Discharge Plan Visit Data Chief Complaint: Abdominal Pain Stated Complaint: SEVERE ABD PAIN,DIARRHEA,ELEVATED BP,HEART RATE ED Provider: Hermilo Adkins Discharge Problem: Small bowel obstruction, Pneumonia Patient Disposition: Admitted As Inpatient Forms Stand Alone Forms: My [facility] Prescriptions Prescriptions: No Action multivitamin Tablet 1 tab PO DAILY RF: 0 oxycodone 5 mg tablet 5 mg PO Q4H PRN (Reason: Pain) RF: 0 acetaminophen [Tylenol Extra Strength] 500 mg tablet 500 mg PO QID PRN (Reason: Pain) RF: 0 silver sulfadiazine [Silvadene] 1 % cream 1 applic topical BID PRN (Reason: wound healing) Qty: 50 RF: 1 ondansetron HCl 8 mg tablet 8 mg PO Q8 PRN (Reason: Nausea) RF: 0 olanzapine 2.5 mg tablet 2.5 mg PO UD RF: 0 amoxicillin-pot clavulanate 875-125 mg tablet 1 tab PO BID Qty: 14 RF: 0 cyanocobalamin (vitamin B-12) 1,000 mcg lozenge 1,000 mcg sublingual DAILY Qty: 50 RF: 5 sucralfate [Carafate] 1 gram tablet 1 g PO BID Qty: 60 RF: 2 pantoprazole [Protonix] 40 mg tablet,delayed release (DR/EC) 40 mg PO QAM Qty: 30 RF: 5 Referrals Referrals: Uzair Coffman PA-C [Primary Care Provider] -
--- NOTE | 2021-11-22 14:31 | History & Physical Report ---
Date of Service November 22, 2021 Assessment & Plan (1) Ileus: Plan: - General surgery consulted, at this time plan to keep him n.p.o. with IVF for bowel rest, and they will follow along. No surgical intervention planned at this time. No nausea or vomiting, plan for now is decompression through J-tube to gravity. With his esophageal cancer there is concern he would be difficult NGT placement so would plan to consult GI for endoscopic NGT placement if he develops nausea and vomiting. - Tylenol, IVF, antiemetics ordered. - Monitor electrolytes. (2) Sinus tachycardia: Plan: - HR 120s, does have active malignancy but without SOB, chest pain/tightness, palpitations, unilateral leg swelling or calf pain. In the setting of abdominal pain due to distention, dehydration, will hold off on chest CT for now. Will give IVF, control pain, and give Metoprolol 5mg IV x1 for this as well as hypertension and monitor response. Will also order SCDs and place on Lovenox for DVT ppx. - If patient continues to be tachycardic or develop presentation concerning for PE will order chest CT. - Of note, patient presented similarly during last admission in August and CT was ordered which did not show PEs. At that time, tachycardia was attributed to pain/anxiety/acute blood loss. - Will continue to monitor closely. (3) Abnormal CXR: Plan: - CXR today with finding in RLL though to represent pleural fluid along fissure vs focal pneumonia. Patient was treated empirically in ED with vancomycin and Zosyn. He does not have leukocytosis or elevated procalcitonin, no fever, cough, shortness of breath that raises concern for pneumonia, however given his chemotherapy not sure he would be able to mount an elevated white blood cell count in setting of infection. - We will hold off on further antibiotics right now, in the setting of 2 episodes of emesis last evening, this may represent a pneumonitis. Will continue to monitor. Can repeat CXR for development of symptoms concerning for pneumonia. (4) Gastric cancer: Plan: - Imaging/endoscopy shows a primary cancer of gastric with extension into lower esophagus. - Sees Dr. Chavez, undergoing chemotherapy with new infusion and po regimen started las Sunday, 11/16. - Will consult Dr. Chavez given development of ileus in setting of new regimen. (5) GERD (gastroesophageal reflux disease): Plan: - Convert PO to IV Protonix while npo. Plan: - Admit to med/tele. - SCDs, Lovenox for DVT ppx. - Full Code. Admission and Anticipated Discharge Date Admission Date: - Admit to med telemetry. - SCDs, Lovenox for DVT PPx. - Full Code. History of Present Illness Chief Complaint: abdominal distention Primary Care Provider: Uzair Coffman PA-C Mr. Zhang is a 56-year-old male with past medical history of esophageal/gastric cancer with jejunostomy tube and port in place who presents today with abdominal pain and nausea. Patient started a new chemo regimen this past Sunday, 11/16. Since then, he has developed mild abdominal pain, decreased appetite, nausea and abdominal distention. Yesterday, he had vomited after trying to eat a meal and drink water. He has been passing gas and having minimal small liquid bowel movements. He has been taking oxycodone more often than usual due to pain. Denies fever/chills, myalgias, weakness, chest pain, palpitations, cough, SOB, hematemesis, melena, or hematochezia. In ED, he is hypertensive 181/112 and tachycardic with HR 110-130, otherwise afebrile and SPO2 > 95% on room air. Labs significant for Hgb 9.8 (baseline), BUN 41, creatinine 0.94, glucose 148, magnesium 2.6, alk phos 109, AST 41. UA with >30 epithelial cells but also with WBCs, RBCs, hyaline casts, granular casts. COVID-negative. CT A/P showed gaseous distention of numerous small bowel loops compatible with ileus or partial obstruction. Colon remains distended, loop of colon is seen in left inguinal hernia. Allergies Allergy/AdvReac Type Severity Reaction Status Date / Time No Known Allergies Allergy Verified 11/22/21 15:07 Home Medications Medication Instructions Recorded Confirmed Type acetaminophen 500 mg tablet 500 mg PO QID PRN 08/16/21 11/22/21 History (Tylenol Extra Strength) oxycodone 5 mg tablet 5 mg PO Q4H PRN 08/16/21 11/22/21 History olanzapine 2.5 mg tablet 2.5 mg PO DIRECTED PRN 08/23/21 11/22/21 History ondansetron HCl 8 mg tablet 8 mg PO Q8 PRN 08/23/21 11/22/21 History cyanocobalamin (vitamin B-12) 1,000 mcg SUBLINGUAL DAILY #50 ea 08/31/21 11/22/21 Rx 1,000 mcg sublingual lozenge pantoprazole 40 mg tablet,delayed 40 mg PO QAM #30 tab 08/31/21 11/22/21 Rx release (Protonix) silver sulfadiazine 1 % topical 1 applic TOPICAL BID PRN #50 g 09/05/21 11/22/21 Rx cream (Silvadene) capecitabine 500 mg tablet 500 mg PO DIRECTED 11/22/21 11/22/21 History dronabinol 5 mg capsule 5 mg PO BID 11/22/21 11/22/21 History Past Med/Surg History Medical History (Updated 11/22/21 @ 16:48 by Ariela Drummond PA-C) 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" following with [facility] Gastric cancer "poorly differentiated adenocarcinoma" following with [facility] Gastritis GERD (gastroesophageal reflux disease) Iron deficiency anemia Left inguinal hernia Umbilical hernia Surgical History H/O esophagogastroduodenoscopy H/O exploratory laparotomy (08/22/21) Exploratory Laparotomy, Abdominal Washout - Ricardo Pederson DO 08/22/2021 H/O hernia repair RT INGUINAL HERNIA X 2 Jejunostomy tube present (08/22/21) p Insertion of Infusaport Left Subclavian(Left) - DO michaelle Banks Laproscopic Assisted Jejunostomy Tube Placement with Repair of Umbilical Hernia(Not Applicable) - Ricardo Pederson DO 08/22/21 Port-A-Cath in place (08/22/21) p Insertion of Infusaport Left Subclavian(Left) - DO michaelle Banks Laproscopic Assisted Jejunostomy Tube Placement with Repair of Umbilical Hernia- Ricardo Pederson DO 08/22/21 S/P rotator cuff repair RT [place] teeth removed Family History Father Cancer Prostate Grandmother (Paternal) Cancer Lung cancer Other No family history of adverse response to anesthesia Social History Smoking Status: Never smoker Second Hand Exposure: No; Do You Dip or Chew Tobacco: No; Tobacco Cessation Education Requested by Patient: No Hx Alcohol Use: No Hx Substance Use: No Preferred Language: Guinean Communication Ability: Effective Visual Impairment: No Limitations Hearing Ability: Normal Calciner Feeder Required: No Beliefs That Will Affect Care: None marital status: Current Living Situation: Spouse and Family Current Living Situation Comment: Lives with and Family. current occupational status: employed current occupation: [employer] How many Children do You have: 1 Other Information That Helps Us Care for You: No (Lives in his mother's house for ease of care.) Feels Safe at Home: Yes Safety Concerns: Feels Safe At This Time Diet Comment: Ensure supplement daily during the past year weight has: decreased > 10 lbs Assistive Devices: None Review of Systems Review of Systems: Constitutional: No fever/chills, weakness, fatigue, myalgias, anorexia, night sweats Eyes: No diplopia, no worsening or blurred vision ENT: normal hearing, no trouble swallowing Respiratory: No cough, sputum, dyspnea at rest or on exertion Cardiovascular: No chest pain, tightness or palpitations Abdomen: bloating, nausea, and emesis with PO intake over past several days, with diarrhea and flatulence; currently without n/v, constipation, or diarrhea : Denies dysuria, hematuria, increased urgency/frequency, urinary retention Musculoskeletal: No joint pain, calf pain, swelling Neurologic: No weakness, numbness/tingling, or balance problems Psychiatric: No anxiety or depression Skin: No rash or itch Physical Exam Physical Exam: General: awake, alert, no apparent distress Head: Normocephalic, atraumatic ENT: PERRL, EOMI, no pharyngeal exudate, mucous membranes moist Chest: Clear to auscultation, on room air, no adventitious breath sounds Cardiac: tachycardic rate, regular rhythm, no murmur, no JVD, normal peripheral pulses, good capillary refill Abdominal: abdomen is distended; NABS x 4 quadrants, nontender to palpation, no rebound, guarding or tenderness Extremities: Normal inspection, no peripheral edema or erythema, calfs nontender to palpation Psych: Normal mood and affect Neuro: AAO x 3, strength intact bilaterally and rated 5/5, no motor deficits, speech is clear, no peripheral sensory deficits Skin: no rash or erythema Results & Data Results & Data ([facility]) Vital Signs (Past 12 Hours) Vital Signs Temp Pulse Pulse Resp BP BP Pulse Ox 11/22/21 12:00 119 H 18 181/112 H 96 11/22/21 11:06 128 H 18 183/120 H 96 11/22/21 09:56 36.7 C 131 H 18 165/102 H 95 Laboratory Results Abnormal lab results 11/22/21 11/22/21 11/22/21 Range/Units 11:23 11:23 11:39 RBC 3.46 L (4.7-6.1) M/uL Hgb 9.8 L (14.0-18.0) g/dL POC Hgb 9.2 L (14.0-18.0) g/dl Hct 31.7 L (42-52) % POC Hct 27 L (42-52) % MCHC 30.9 L (32-36) g/dL RDW Std Deviation 59.1 H (36.4-46.3) fL RDW Coeff of Briana 17.8 H (11.5-14.5) % Lymph # (Auto) 0.48 L (1.2-3.4) K/uL POC Chloride 100 L (101-112) mmol/L Chloride 97 L (98-107) mmol/L Anion Gap 13 H (3-11) POC Anion Gap 15.0 L (16-25) mmol/L POC BUN 36 H (7-18) mg/dl BUN 41 H (6-23) mg/dl BUN/Creatinine Ratio 43.6 H (10-20) Glucose 140 H (70-99(Fasting)) mg/dl POC Glucose (other) 155 H (70-99) mg/dl Magnesium 2.6 H (1.7-2.4) mg/dl AST 41 H (13-39) U/L Alkaline Phosphatase 109 H (34-104) U/L Urine Appearance (Clear) Ur Specific [place] (1.000-1.030) Urine Protein (Negative) Urine Ketones (Negative) Urine Blood (Negative) Urine WBC (Auto) (0-5) /hpf Urine RBC (Auto) (0-4) /hpf U Hyaline Cast (Auto) (0-5) /lpf U Epithel Cells (Auto) (0-5) /lpf Granular Casts (0) /lpf 11/22/21 Range/Units 11:51 RBC (4.7-6.1) M/uL Hgb (14.0-18.0) g/dL POC Hgb (14.0-18.0) g/dl Hct (42-52) % POC Hct (42-52) % MCHC (32-36) g/dL RDW Std Deviation (36.4-46.3) fL RDW Coeff of Briana (11.5-14.5) % Lymph # (Auto) (1.2-3.4) K/uL POC Chloride (101-112) mmol/L Chloride (98-107) mmol/L Anion Gap (3-11) POC Anion Gap (16-25) mmol/L POC BUN (7-18) mg/dl BUN (6-23) mg/dl BUN/Creatinine Ratio (10-20) Glucose (70-99(Fasting)) mg/dl POC Glucose (other) (70-99) mg/dl Magnesium (1.7-2.4) mg/dl AST (13-39) U/L Alkaline Phosphatase (34-104) U/L Urine Appearance Cloudy A (Clear) Ur Specific [place] 1.034 H (1.000-1.030) Urine Protein 2+ H (Negative) Urine Ketones Trace H (Negative) Urine Blood 3+ H (Negative) Urine WBC (Auto) 10-30 H (0-5) /hpf Urine RBC (Auto) 10-30 H (0-4) /hpf U Hyaline Cast (Auto) 10-30 H (0-5) /lpf U Epithel Cells (Auto) >30 H (0-5) /lpf Granular Casts 1-5 H (0) /lpf Diagnostic Findings Chest X-Ray 11/22/21 11:06 XR chest 1V portable CLINICAL HISTORY: Sepsis. COMPARISON STUDY: PET/CT October 26, 2021. Chest CT August 31, 2021. FINDINGS: Left subclavian Yircrt-b-Plgc is in place. There is no pneumothorax. No definite pleural effusion is identified. 4.8 x 2.4 cm right lower lung density has developed since prior exam. There is reticulonodular interstitial thickening. Cardiomediastinal silhouette is stable. Lung volumes are diminished, unchanged. IMPRESSION: 1. 4.8 x 2.4 cm right lower lung density which has developed since prior exam. This could reflect pleural fluid along the fissure or a focus of pneumonia. Radiographic follow-up to ensure resolution is recommended. 2. Increase in reticulonodular interstitial thickening. This could reflect pulmonary edema or an infectious process. ACT 112: Negative or not required by law. Electronically signed by: Andrew Spears M.D. 11/22/2021 11:42 AM Abdomen/Pelvis CT 11/22/21 11:07 CT abd pelvis IV con only CLINICAL HISTORY: abd pain hx esophogeal cancer TECHNIQUE: Helical axial images of the abdomen and pelvis were obtained and displayed. Automated dose lowering techniques and/or adjustment according to patient size were utilized for this exam. This exam was performed with intravenous contrast. CT DOSE: 303.04 mGy.cm COMPARISON: Comparison is made to PET/CT 10/26/2021 FINDINGS: Lower chest: There is a small right and trace left pleural effusion. Partial visualization of multiple foci of atelectasis versus scarring as well as tree in bud nodularity in the lower lungs. Liver: Subcentimeter hypodensities are seen in the liver compatible with cysts. Gallbladder and biliary tree: No calcified gallstones. Normal caliber wall. No intra- or extrahepatic biliary ductal dilation. Pancreas: Unremarkable, no focal lesions. Spleen: Unremarkable. Adrenals: Unremarkable. Kidneys and ureters: Unremarkable. Bladder: Unremarkable. Reproductive organs: Unremarkable. Bowel: Multiple distended loops of small bowel are seen. These measure up to 44 mm in diameter. No transition point is seen. The colon contains a large amount of gas. A loop of bowel enters a left inguinal hernia. Lymph nodes Retroperitoneal: Subcentimeter lymph nodes are noted. Mesenteric: Subcentimeter lymph nodes are noted. Pelvic: Subcentimeter lymph nodes are noted. Peritoneum: Multiple tiny tissue nodules are seen in the perinephric spaces. Vessels: Unremarkable. Abdominal wall: Left femoral hernia contains a loop of sigmoid colon. Bones: Degenerative changes in the visualized spine. IMPRESSION: 1. Gaseous distention of numerous small bowel loops compatible with ileus or partial obstruction. The colon remains distended. A loop of colon is seen in the left inguinal hernia. 2. Soft tissue densities in the right greater than left retroperitoneum are seen, nonspecific. This region demonstrated mild DJD uptake on prior PET/CT. Subcentimeter lymph nodes are seen throughout the abdomen. ACT 112: Negative or not required by law. Electronically signed by: Javy Sanderson M.D. 11/22/2021 12:38 PM ECG Additional Comments: Sinus tachycardia with Premature supraventricular complexes Otherwise normal ECG No previous ECGs available. Code Status & VTE Plan Code Status Full code. Supervising Physician Co-Signing Physician Notes Patient was seen and examined independently I discussed the case with Ariela STEVENS I reviewed pertinent past medical social family history and also the plan of care and agree with the plan of care. Patient was discharged from our facility September 01, 2021 after exploratory lap for hemoperitoneum. He is history of esophageal cancer and had a J-tube placed at that time and subsequent bleeding from that. He represents today with a distended abdomen and was being read as a ileus or partial small bowel obstruction due to the lack of nondistention or the fact that his colon is distended. Patient did have some vomitus at home 1 day prior he is eating small amounts of oral intake but using his J-tube to augment most of his oral intake. On presentation he is with hypoactive normoactive bowel sounds but a very firm distended abdomen. CT scan emergency department shows gaseous distention of small bowel loops distended colon there is a loop of colon and a left inguinal hernia. Attempted to examine inguinal hernia on presentation but cannot quite define that was there due to the protuberance and distention of his abdomen. Patient be kept on bowel rest to be hydrated given pain medications and likely surveillance evaluations and possibly even a Gastrografin study Any exceptions will be noted below PG Care Time/CCT Total # of Minutes Spent Total Time Spent with Patient: Total time spent is greater than 50% in coordination of care (as documented) at patient's floor/unit and/or counseling patient: Coding Level of Care Code 61757 Initial Inpt Care Lvl 3 Diagnoses Gastric cancer C16.9 GERD (gastroesophageal reflux disease) K21.9 Sinus tachycardia R00.0 Ileus K56.7 Abnormal CXR R93.89
--- NOTE | 2021-11-22 15:05 | Electrocardiogram Report ---
Test Reason : Blood Pressure : / mmHG Vent. Rate : 124 BPM Atrial Rate : 124 BPM P-R Int : 140 ms QRS Dur : 078 ms QT Int : 320 ms P-R-T Axes : 055 045 069 degrees QTc Int : 459 ms Sinus tachycardia with Premature supraventricular complexes Otherwise normal ECG No previous ECGs available Confirmed by Grant Cheung ([id number]) on 11/22/2021 3:05:02 PM Referred By: REFERRED SELF Confirmed By:Grant Cheung
[2021-11-22] MEDS ORDERED: METOPROLOL TARTRATE 1 MG/ML VIAL IV STA (15:42)
[2021-11-22] MEDS ORDERED: ONDANSETRON INJ 2 MG/ML 2 ML VIAL IV PRN (17:05)
[2021-11-22] MEDS ORDERED: METOPROLOL TARTRATE 1 MG/ML VIAL IV PRN (17:05)
[2021-11-22] MEDS ORDERED: POLYETHYLENE (MIRALAX) 17 GM PACK PO PRN (17:05)
[2021-11-22] MEDS ORDERED: ACETAMINOPHEN 1000 MG/100 ML IV IV PRN (17:05)
[2021-11-22] MEDS: LACTATED RINGER'S 1,000 ML IV SCH (18:35)
[2021-11-22] MEDS: ENOXAPARIN INJ 40 MG/0.4 ML SYR SQ SCH (20:47)
[2021-11-23] MEDS: LACTATED RINGER'S 1,000 ML IV SCH ×3 (06:03→23:28)
[2021-11-23 06:11] LABS: Hematocrit (blood only) 26.1 % (42-52); Hemoglobin 8.1 g/dL (14.0-18.0); Mean Corpuscular Hemoglobin 28.7 pg (25-34); Mean Corpuscular Volume 92.6 fL (80-100); Mean Platelet Volume 8.1 fL (7.4-10.4); Platelet Count 280 K/uL (130-400); RDW Coefficient of Variation 17.9 % (11.5-14.5); RDW Standard Deviation 60.9 fL (36.4-46.3); Red Blood Count 2.82 M/uL (4.7-6.1)
[2021-11-23 06:39] LABS: BUN Creatinine Ratio 54.2 (10-20); Calcium 8.5 mg/dl (8.5-10.1); Creatinine Clr Calc Pharmacy 91.7 ml/min; Est GFR (African American) 120.9 ml/min; Est GFR (Non-African American) 104.3 ml/min; Potassium 3.3 mmol/L (3.5-5.1)
[2021-11-23 06:42] LABS: Dohle Bodies 1+; Immature Granulocytes # (auto) 0.03 K/uL (0.00-0.02); Immature Granulocytes % (auto) 0.7 %; Lymphocytes # (auto) 0.48 K/uL (1.2-3.4); Lymphocytes % (auto) 11.2 %; Monocytes # (auto) 0.66 K/uL (0.11-0.59); Monocytes % (auto) 15.3 %; Neutrophils # (auto) 3.13 K/uL (1.4-6.5); Neutrophils % (auto) 72.8 %
--- NOTE | 2021-11-23 09:16 | XRay Report ---
KUB CLINICAL HISTORY: eval bowel/gas pattern COMPARISON STUDY: CT of the abdomen and pelvis November 22, 2021. FINDINGS: Left abdominal catheter represents a jejunostomy catheter. Moderate gaseous distention of s mall and large bowel has improved since prior CT. Pelvic calcifications favors phleboliths. No radiog raphic evidence for pneumatosis or portal venous gas. Sensitivity for detection of for free air is di minished on this supine exam but none is identified. IMPRESSION: Moderate distention of small and large bowel, decreased since prior CT. ACT 112: Negative or not required by law. Electronically signed by: Andrew Spears M.D. 11/23/2021 9:15 AM
--- NOTE | 2021-11-23 09:31 | Surgery Progress Note ---
Date of Service November 23, 2021 Assessment & Plan (1) Ileus: Plan: has returning bowel function KUB improved can clamp J-tube and if doing ok start clears this afternoon Admission and Anticipated Discharge Date Admission Date: November 22, 2021 Supervising Physician Co-Signing Physician Notes Patient seen and examined, imaging reviewed, agree with above. 56-year-old male admitted with ileus likely secondary to chemotherapy. He has had several liquid bowel movements and his abdomen feels less distended. J-tube to gravity with no significant output. On exam he is afebrile stable vitals, heart rate downtrending. Abdomen soft, less distended, nontender. KUB reviewed, less distended. We will clamp J-tube, if doing well this afternoon may start clear liquids. Subjective loose BMs, less pain/nausea Physical Exam Gastrointestinal (Abdomen): Inspection/Auscultation: + abdomen distended (less) Percussion/Palpation: abdomen soft; abdomen nontender Results & Data ([facility]) Vital Signs (Past 12 Hours) Vital Signs Temp Pulse Pulse Pulse Resp BP Pulse Ox 11/23/21 08:10 110 H 11/23/21 07:50 36.6 C 113 H 16 160/92 H 94 11/23/21 06:42 36.7 C 116 H 24 96/63 L 95 11/23/21 04:08 37.4 C 115 H 22 162/90 H 93 11/22/21 23:52 37.6 C H 118 H 24 166/97 H 95 11/22/21 22:18 119 H PG Care Time/CCT Total # of Minutes Spent Total Time Spent with Patient: Total time spent is greater than 50% in coordination of care (as documented) at patient's floor/unit and/or counseling patient: Coding Level of Care Code 58055 Subseq Hosp Care Lvl 1 Diagnoses Ileus K56.7
[2021-11-23] MEDS: PANTOprazole 40 MG in SYRINGE 0 ML IV SCH (11:01)
--- NOTE | 2021-11-23 14:16 | Hospitalist Progress Note ---
Date of Service November 23, 2021 Assessment & Plan (1) Ileus: Plan: Presents with abdominal distension Imaging studies shows evidence of Ileus Currently, abdomen not as distended, admits to passing flatus Gen surgery on consult Start CLD as tolerated (2) Sinus tachycardia: Plan: - chronic stable, no evidence of PE during his last admission (3) Abnormal CXR: Plan: - CXR today with finding in RLL though to represent pleural fluid along fissure vs focal pneumonia. Patient was treated empirically in ED with vancomycin and Zosyn. He does not have leukocytosis or elevated procalcitonin, no fever, cough, shortness of breath that raises concern for pneumonia, however given his chemotherapy not sure he would be able to mount an elevated white blood cell count in setting of infection. - We will hold off on further antibiotics right now, in the setting of 2 episodes of emesis last evening, this may represent a pneumonitis. Will continue to monitor. Can repeat CXR for development of symptoms concerning for pneumonia. (4) Gastric cancer: Plan: - Imaging/endoscopy shows a primary cancer of gastric with extension into lower esophagus. - Sees Dr. Chavez, undergoing chemotherapy with new infusion and po regimen started las Sunday, 11/16. - Will consult Dr. Chavez given development of ileus in setting of new regimen. (5) GERD (gastroesophageal reflux disease): Plan: - Convert PO to IV Protonix while npo. Plan: - Admit to med/tele. - SCDs, Lovenox for DVT ppx. - Full Code. Admission and Anticipated Discharge Date Admission Date: November 22, 2021 Subjective patient seen and examined, says his belly no longer as distended, now passing gas Review of Systems Review of Systems: All systems reviewed are negative, apart from the ones contained in the history. Physical Exam Physical Exam: The patient is awake, alert and oriented 3, well developed and well nourished, normocephalic and atraumatic, lying in bed and in no acute distress. HEENT--PERRL, EOMI, mucous membranes and oropharynx mildly dry Neck--supple. No JVD. No bruits. Thyroid normal, trachea midline, no adenopathy. Heart--normal S1 and S2. No murmurs, rubs or gallops. Lungs--clear bilaterally, no respiratory distress, no accessory muscle use. Abdomen--distended, J tube in situ Extremities--no cyanosis or clubbing. No edema. Dermatologic--normal skin turgor, normal color, no abnormal lymph nodes, no rash. Neurologic--cranial nerves II through XII grossly intact. Rheumatologic--normal range of motion. Psychiatric--normal affect. Results & Data Results & Data ([facility]) Vital Signs (Past 12 Hours) Vital Signs Temp Pulse Pulse Pulse Resp BP Pulse Ox 11/23/21 11:08 98.2 F 109 H 14 161/93 H 94 11/23/21 08:10 110 H 11/23/21 07:50 97.9 F 113 H 16 160/92 H 94 11/23/21 06:42 98.1 F 116 H 24 96/63 L 95 11/23/21 04:08 99.3 F 115 H 22 162/90 H 93 PG Care Time/CCT Total # of Minutes Spent Total Time Spent with Patient: Total time spent is greater than 50% in coordination of care (as documented) at patient's floor/unit and/or counseling patient: Coding Level of Care Code 51305 Subseq Hosp Care Lvl 2 Diagnoses Ileus K56.7 Sinus tachycardia R00.0 Abnormal CXR R93.89 Gastric cancer C16.9 GERD (gastroesophageal reflux disease) K21.9 Time Spent (min) 35
--- NOTE | 2021-11-23 16:38 | Consultation Report ---
DATE OF CONSULT: 11/23/2021. REASON FOR CONSULTATION: History of esophageal cancer. HISTORY OF PRESENT ILLNESS: The patient is a very pleasant 56-year-old gentleman known to me at [facility] who has a history of advanced esophageal/gastric cancer for which he is status post 3 cycles of treatment with docetaxel/cisplatin and was most recently started on treatment with capecitabine, oxaliplatin and nivolumab on 11/16/2021. Patient had called Oncology office complaining of initial diarrhea followed by constipation as well as abdominal distention for which we recommended he present to the ER. On presentation to the ER, he had CT abdomen and pelvis performed on 11/22/2021 which revealed gaseous distention of numerous small bowel loops compatible with ileus or partial obstruction as well as soft tissue densities in the right greater than left retroperitoneum and subcentimeter lymph nodes seen throughout the abdomen. The patient was subsequently admitted for ileus and placed on IV fluids, and n.p.o. per surgery recommendations. During my evaluation of patient today, he states that he is doing a lot better. He is currently tolerating ice chips and also passing gas. He also states that abdominal distention has significantly improved. He endorses diarrhea, but denies any other complaints. PAST MEDICAL HISTORY: 1. Esophageal/gastric cancer. 2. Iron deficiency anemia. 3. GERD. PAST SURGICAL HISTORY: 1. Jejunostomy tube placement. 2. Rotator cuff repair. 3. Exploratory laparotomy with abdominal washout. HOME MEDICATIONS: 1. Oxycodone 5 mg p.o. q.4h. p.r.n. 2. Zofran 8 mg p.o. q.8h. p.r.n. 3. Vitamin B12 supplementation 1000 mcg p.o. daily. 4. Protonix 40 mg p.o. every day. 5. Marinol 5 mg p.o. b.i.d. FAMILY HISTORY: Significant for prostate cancer in his father. SOCIAL HISTORY: Denies smoking, alcohol, or illicit drug use. REVIEW OF SYSTEMS: CONSTITUTIONAL: Endorses weight loss. Denies fever or night sweats. CARDIOVASCULAR: He denies chest pain, palpitations, dizziness, or diaphoresis. GASTROINTESTINAL: Endorses diarrhea. Denies nausea, vomiting, hematemesis or melena. GENITOURINARY: Negative for urinary frequency, hematuria or dysuria. NEUROLOGIC: Negative for headaches or dizziness. LYMPHATICS AND HEMATOLOGIC: Denies abnormal bleeding or new adenopathy. PHYSICAL EXAMINATION: VITAL SIGNS: Blood pressure 165/88, heart rate 107, respiratory rate 18, current temperature 36.8, oxygen saturation 94% on room air. CONSTITUTIONAL: Vitals are stable. EYES: Eyes are without conjunctival erythema or icterus. ENT: Negative for masses. NECK: Negative for masses or palpable thyromegaly. RESPIRATORY: Lung sounds were clear bilaterally. CARDIOVASCULAR: Heart was regular rate and rhythm without significant murmur, gallops or rubs. GASTROINTESTINAL: Slightly distended abdomen. Abdomen was soft with normal bowel sounds. No palpable hepatosplenomegaly. J-tube noted. LYMPHATIC SYSTEM: No palpable peripheral lymphadenopathy. EXTREMITIES: Negative for edema. LABORATORY TESTING: CBC from 11/23/2021 significant for white count of 4.3, hemoglobin of 8.1, hematocrit of 26.1, and platelet count of 280,000. Chemistry significant for sodium of 141, potassium 3.3, chloride 104, bicarbonate 26, BUN 39 and creatinine 0.72. ASSESSMENT/PLAN: Very pleasant gentleman with history of esophageal/gastric cancer for which he most recently received cycle #1 of treatment with capecitabine, oxaliplatin and nivolumab. The patient presented with ileus. Although I think it is less likely that ileus is due to new chemotherapy regimen, patient has lost substantial amount of weight and as such, I have recommended discontinuing chemotherapy with capecitabine and oxaliplatin and remaining on single agent immunotherapy treatment given MSI-high status. Agree with current management of bowel rest and IV fluids. May consider transfusing him with PRBC prior to discharge home for hemoglobin less than 8. Also, recommend checking iron studies given his history of iron deficiency anemia and giving IV venofer if ferritin is below 30. Thank you for this consult. Oncology will continue following in the patient while in the hospital. Please feel free to call if you have any further questions. Job ID: [id number] [facility]
[2021-11-23] MEDS: ENOXAPARIN INJ 40 MG/0.4 ML SYR SQ SCH (19:56)
[2021-11-24] MEDS ORDERED: HEPARIN 100 UNIT/ML 5ML FLUSH FLUSH PRN (03:18)
[2021-11-24] MEDS: LACTATED RINGER'S 1,000 ML IV SCH ×2 (07:50→11:21)
[2021-11-24 08:01] LABS: Hematocrit (blood only) 26.4 % (42-52); Hemoglobin 8.3 g/dL (14.0-18.0); Mean Corpuscular Hemoglobin 28.6 pg (25-34); Mean Corpuscular Hgb Conc 31.4 g/dL (32-36); Mean Platelet Volume 8.3 fL (7.4-10.4); Platelet Count 274 K/uL (130-400); RDW Coefficient of Variation 18.1 % (11.5-14.5); RDW Standard Deviation 59.3 fL (36.4-46.3); White Blood Count 5.45 K/uL (4.8-10.8)
[2021-11-24 08:22] LABS: BUN Creatinine Ratio 55.6 (10-20); Calcium 8.8 mg/dl (8.5-10.1); Creatinine Clr Calc Pharmacy 122.3 ml/min; Est GFR (Non-African American) 117.4 ml/min; Potassium 2.6 mmol/L (3.5-5.1)
[2021-11-24] MEDS ORDERED: POTASSIUM CHLORIDE CRTAB 20 MEQ TABCR PO STA (09:11)
[2021-11-24] MEDS ORDERED: amLODIPine BESYLATE 5 MG TAB PO ONE (11:00)
[2021-11-24] MEDS: PANTOprazole 40 MG in SYRINGE 0 ML IV SCH (11:13)
--- NOTE | 2021-11-24 11:36 | Surgery Progress Note ---
Date of Service November 24, 2021 Assessment & Plan (1) Ileus: Plan: Patient with h/o esophageal cancer with J tube in place here with ileus -K 2.9, hospitalists ordered supplementation -Pt feeling a little better than admission, passing gas/loose stool but having fullness/bloating with the clears. Will add boost breeze for more supplementation -Abdomen soft, not tender, mildly distended -Would continue with slow advancement pending symptoms...if feels better may consider fulls later, but he is still having abdominal complaints with clears currently Admission and Anticipated Discharge Date Admission Date: November 22, 2021 Supervising Physician Co-Signing Physician Notes Pnt S&E, agree with above. Small and large bowel ileus, likely from chemotherapy. Passing gas and loose bm's, gets bloated with clears. Better than admission but still distended. Abd soft, distended, NT. continue clears, replace lytes, may benefit from rectal stimulation with suppository. May discuss with GI if no significant improvement for any recs they may have. Not a surgical issue at this time. Subjective Patient feeling okay. He complains of early fullness and abdominal bloating with drinking the clears. He is otherwise tolerating them without nausea/vomiting. He is passing flatus and loose stools. Physical Exam Physical Exam: awake/alert Gastrointestinal (Abdomen): Inspection/Auscultation: + abdomen distended (somewhat improved ) Percussion/Palpation: abdomen soft; abdomen nontender Results & Data ([facility]) Vital Signs (Past 12 Hours) Vital Signs Temp Pulse Pulse Pulse Resp BP Pulse Ox 11/24/21 07:28 103 H 11/24/21 07:00 36.8 C 100 H 18 166/92 H 95 11/24/21 03:26 37 C 71 18 152/88 H 95 PG Care Time/CCT Total # of Minutes Spent Total Time Spent with Patient: Total time spent is greater than 50% in coordination of care (as documented) at patient's floor/unit and/or counseling patient: Coding Level of Care Code 85524 Subseq Hosp Care Lvl 1 Diagnoses Ileus K56.7
--- NOTE | 2021-11-24 12:02 | Hospitalist Progress Note ---
Date of Service November 24, 2021 Assessment & Plan (1) Ileus: Plan: Presents with abdominal distension Imaging studies shows evidence of Ileus Currently, abdomen not as distended, admits to passing flatus and having bowel movement, but still feels bloated when he attempts to eat Gen surgery on consult Start CLD as tolerated (2) Sinus tachycardia: Plan: - chronic stable, no evidence of PE during his last admission (3) Abnormal CXR: Plan: -No clinical evidence of PNA (4) Gastric cancer: Plan: - Imaging/endoscopy shows a primary cancer of gastric with extension into lower esophagus. - Sees Dr. Chavez, undergoing chemotherapy with new infusion and po regimen s tarted las Sunday, 11/16. - Will consult Dr. Chavez given development of ileus in setting of new regimen. (5) GERD (gastroesophageal reflux disease): Plan: - Convert PO to IV Protonix while npo. Plan: - Hopefully d/c tomorrow when able to tolerate diet - SCDs, Lovenox for DVT ppx. - Full Code. Admission and Anticipated Discharge Date Admission Date: November 22, 2021 Subjective patient seen and examined, passing gas and having bowel movement, but still feels bloated when he attempts to eat Review of Systems Review of Systems: All systems reviewed are negative, apart from the ones contained in the history. Physical Exam Physical Exam: The patient is awake, alert and oriented 3, well developed and well nourished, normocephalic and atraumatic, lying in bed and in no acute distress. HEENT--PERRL, EOMI, mucous membranes and oropharynx mildly dry Neck--supple. No JVD. No bruits. Thyroid normal, trachea midline, no adenopathy. Heart--normal S1 and S2. No murmurs, rubs or gallops. Lungs--clear bilaterally, no respiratory distress, no accessory muscle use. Abdomen--distended, J tube in situ Extremities--no cyanosis or clubbing. No edema. Dermatologic--normal skin turgor, normal color, no abnormal lymph nodes, no rash. Neurologic--cranial nerves II through XII grossly intact. Rheumatologic--normal range of motion. Psychiatric--normal affect. Results & Data Results & Data ([facility]) Vital Signs (Past 12 Hours) Vital Signs Temp Pulse Pulse Pulse Resp BP Pulse Ox 11/24/21 07:28 103 H 11/24/21 07:00 98.2 F 100 H 18 166/92 H 95 11/24/21 03:26 98.6 F 71 18 152/88 H 95 PG Care Time/CCT Total # of Minutes Spent Total Time Spent with Patient: Total time spent is greater than 50% in coordination of care (as documented) at patient's floor/unit and/or counseling patient: Coding Level of Care Code 60055 Subseq Hosp Care Lvl 2 Diagnoses Ileus K56.7 Sinus tachycardia R00.0 Abnormal CXR R93.89 Gastric cancer C16.9 GERD (gastroesophageal reflux disease) K21.9 Time Spent (min) 35
[2021-11-24] MEDS ORDERED: SIMETHICONE 80 MG CHEW PO PRN (12:36)
[2021-11-24] MEDS: ENOXAPARIN INJ 40 MG/0.4 ML SYR SQ SCH (20:24)
[2021-11-24 20:56] LABS: BUN Creatinine Ratio 39.7 (10-20); Calcium 8.6 mg/dl (8.5-10.1); Creatinine Clr Calc Pharmacy 113.9 ml/min; Est GFR (African American) 132.1 ml/min; Magnesium 1.6 mg/dl (1.7-2.4); Potassium 2.4 mmol/L (3.5-5.1)
[2021-11-24] MEDS: POTASSIUM CHLORIDE / WTR 10 MEQ/100 ML PLCT IV SCH ×3 (21:23→23:40)
[2021-11-24] MEDS: MAGNESIUM SULFATE / D5W 1 GM/100 ML BAG IV SCH ×2 (21:24→23:10)
[2021-11-25] MEDS: POTASSIUM CHLORIDE / WTR 10 MEQ/100 ML PLCT IV SCH (00:56)
[2021-11-25] MEDS: MAGNESIUM SULFATE / D5W 1 GM/100 ML BAG IV SCH (01:23)
--- NOTE | 2021-11-25 08:08 | Surgery Progress Note ---
Date of Service November 25, 2021 Assessment & Plan (1) Ileus: Plan: Patient with h/o esophageal cancer with J tube in place here with ileus -Continue to replete patient's electrolytes, potassium has been low -Pt maybe feeling a bit better than yesterday so far, he continues to pass gas & loose stool. He does not care for the Boost Breeze, will order some Boost chocolate/strawberry instead -Abdomen soft, not tender, mildly distended -Would continue with slow advancement pending symptoms...if feels better may consider fulls liquids later -If not making much progress may need consideration to peripheral nutrition. In addition could consider GI consultation for any input regarding ileus in chemotherapy patients -If develops n/v, worsening distention can trial venting J tube prn -No plans for surgical intervention at this time. [facility] surgery covering for the weekend Admission and Anticipated Discharge Date Admission Date: November 22, 2021 Supervising Physician Co-Signing Physician Notes Patient seen examined, agree with above. 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 He is continuing to pass gas and have loose bowel movements. He tolerated clears yesterday without incident. He has not used the J-tube yet. Feels much better than on arrival. On exam he is afebrile stable vitals. Abdomen soft, distended but less than yesterday. Nontender. Recommend advancing diet slowly as tolerated, may restart J-tube feeds, would start slow. No surgical intervention at this time. Surgery will sign off, call with questions or concerns. Subjective Patient feeling okay. Was able to tolerate small amount of clear liquids for dinner yesterday. This AM he is continuing to pass loose BMs and gas. He is about to start eating his bfast tray. Denies nausea/vomiting. Thinks his belly bloating is going down some. Does not like the Boost Breeze flavor. Physical Exam Physical Exam: awake/alert, sitting up at the side of the bed Gastrointestinal (Abdomen): Inspection/Auscultation: + abdomen distended (mildly improved from yest) Percussion/Palpation: abdomen soft; abdomen nontender j tube capped Results & Data ([facility]) Vital Signs (Past 12 Hours) Vital Signs Temp Pulse Pulse Resp BP Pulse Ox 05/27/22 03:40 113 H 11/25/21 02:43 37.2 C 113 H 18 160/83 H 93 11/24/21 21:48 37.3 C 112 H 18 162/84 H 96 PG Care Time/CCT Total # of Minutes Spent Total Time Spent with Patient: Total time spent is greater than 50% in coordination of care (as documented) at patient's floor/unit and/or counseling patient: Coding Level of Care Code 53473 Subseq Hosp Care Lvl 1 Diagnoses Ileus K56.7
[2021-11-25] MEDS ORDERED: amLODIPine BESYLATE 5 MG TAB PO SCH (09:00)
[2021-11-25 09:36] LABS: BUN Creatinine Ratio 29.7 (10-20); Calcium 8.8 mg/dl (8.5-10.1); Creatinine Clr Calc Pharmacy 103.2 ml/min; Est GFR (African American) 126.9 ml/min; Est GFR (Non-African American) 109.5 ml/min; Potassium 2.4 mmol/L (3.5-5.1)
[2021-11-25] MEDS ORDERED: POTASSIUM CHLORIDE CRTAB 20 MEQ TABCR PO STA (09:49)
[2021-11-25] MEDS: PANTOprazole 40 MG in SYRINGE 0 ML IV SCH (12:06)
--- NOTE | 2021-11-25 13:58 | Discharge Summary ---
Date of Service November 25, 2021 Admission HPI Per Admitting Provider Mr. Zhang is a 56-year-old male with past medical history of esophageal/gastric cancer with jejunostomy tube and port in place who presents today with abdominal pain and nausea. Patient started a new chemo regimen this past Sunday, 11/16. Since then, he has developed mild abdominal pain, decreased appetite, nausea and abdominal distention. Yesterday, he had vomited after trying to eat a meal and drink water. He has been passing gas and having minimal small liquid bowel movements. He has been taking oxycodone more often than usual due to pain. Denies fever/chills, myalgias, weakness, chest pain, palpitations, cough, SOB, hematemesis, melena, or hematochezia. In ED, he is hypertensive 181/112 and tachycardic with HR 110-130, otherwise afebrile and SPO2 > 95% on room air. Labs significant for Hgb 9.8 (baseline), BUN 41, creatinine 0.94, glucose 148, magnesium 2.6, alk phos 109, AST 41. UA with >30 epithelial cells but also with WBCs, RBCs, hyaline casts, granular casts. COVID-negative. CT A/P showed gaseous distention of numerous small bowel loops compatible with ileus or partial obstruction. Colon remains distended, loop of colon is seen in left inguinal hernia. Principal Diagnosis Ileus Discharge Exam The patient is awake, alert and oriented 3, well developed and well nourished, normocephalic and atraumatic, lying in bed and in no acute distress. HEENT--PERRL, EOMI, mucous membranes and oropharynx mildly dry Neck--supple. No JVD. No bruits. Thyroid normal, trachea midline, no marco nopathy. Heart--normal S1 and S2. No murmurs, rubs or gallops. Lungs--clear bilaterally, no respiratory distress, no accessory muscle use. Abdomen--distended, J tube in situ Extremities--no cyanosis or clubbing. No edema. Dermatologic--normal skin turgor, normal color, no abnormal lymph nodes, no rash. Neurologic--cranial nerves II through XII grossly intact. Rheumatologic--normal range of motion. Psychiatric--normal affect. Discharge Data Allergies Allergy/AdvReac Type Severity Reaction Status Date / Time No Known Allergies Allergy Verified 11/22/21 15:07 Consultations 11/22/21 13:13 Consult General Surgery Routine 11/22/21 13:14 ED Decision to Admit Stat 11/22/21 17:05 Consult Oncology Routine Ordered Studies 11/22/21 11:07 CT abd pelvis IV con only Stat Hospital Course (1) Ileus: Presents with abdominal distension Imaging studies shows evidence of Ileus Now resolved Having bowel movements, tolerating diet (2) Sinus tachycardia: - chronic stable, no evidence of PE during his last admission (3) Abnormal CXR: -No clinical evidence of PNA (4) Gastric cancer: - Imaging/endoscopy shows a primary cancer of gastric with extension into lower esophagus. - Sees Dr. Chavez, undergoing chemotherapy with new infusion and po regimen started las Sunday, 11/16. - Will consult Dr. Chavez given development of ileus in setting of new regimen. (5) GERD (gastroesophageal reflux disease): - Convert PO to IV Protonix while npo. - Hopefully d/c tomorrow when able to tolerate diet - SCDs, Lovenox for DVT ppx. - Full Code. Total Time Total Time Spent Total Time Spent (In Minutes): 35 Discharge Plan Discharge Items Patient Disposition: Home - Self-Care Reason For Visit: ILEUS WITH HISTORY OF GASTRIC CA Discharge Diagnosis: ileus-resolved Activity: Resume your previous activity Non-emergency contact: Primary Care Provider and Oncologist Call non-emergency contact if: you have any medication questions Follow-up/Referrals: Uzair Coffman PA-C [Primary Care Provider] - Diet: Regular Addtl Attending Provider Instructions: please make appointment to follow up with your oncologist Pending Studies at Discharge: No Stand-Alone Forms: My [facility] Status Overload, Smoking Cessation Medications and DC Order Prescriptions: Continued oxycodone 5 mg tablet 5 mg PO Q4H PRN (Reason: Pain) RF: 0 acetaminophen [Tylenol Extra Strength] 500 mg tablet 500 mg PO QID PRN (Reason: Pain) RF: 0 silver sulfadiazine [Silvadene] 1 % cream 1 applic topical BID PRN (Reason: wound healing) Qty: 50 RF: 1 ondansetron HCl 8 mg tablet 8 mg PO Q8 PRN (Reason: Nausea) RF: 0 olanzapine 2.5 mg tablet 2.5 mg PO DIRECTED PRN (Reason: PER PT " NEEDED".) RF: 0 cyanocobalamin (vitamin B-12) 1,000 mcg lozenge 1,000 mcg sublingual DAILY Qty: 50 RF: 5 pantoprazole [Protonix] 40 mg tablet,delayed release (DR/EC) 40 mg PO QAM Qty: 30 RF: 5 dronabinol 5 mg capsule 5 mg PO BID RF: 0 capecitabine 500 mg tablet 500 mg PO DIRECTED RF: 0 Discharge Orders: Discharge Order (Routine); Ordered 11/25/21 Ordered By: Beatriz Harden Admission Data Admit Date/Time: 11/22/21 15:05 Attending Provider: Beatriz Harden Admit Provider: Uzair Mendez Primary Care Provider: Uzair Coffman Other Providers: Sheldon Ignacio ; Uzair Mendez ; Sheyla Chavez Other Interventions: Discharge Summary Assessment (RN) Last Done: 11/25/21 12:30 Coding Level of Care Code D/C DAY MANAGEMENT >30 MINS Diagnoses Ileus K56.7 Sinus tachycardia R00.0 Abnormal CXR R93.89 Gastric cancer C16.9 GERD (gastroesophageal reflux disease) K21.9 Time Spent (min) 35
== END 2021-11-25 14:15 | disposition home or self-care (01) | DRG 389 ==
LOC: ED 09:49 → 2N 15:05 → SUATTDRO 15:05 → 2N 16:14

== ENCOUNTER 2022-01-04 14:08 | Observation (INO) ==
[2022-01-04] MEDS ORDERED: OLANZAPINE 2.5 MG TAB PO PRN (15:23)
[2022-01-04] MEDS ORDERED: oxyCODONE HCL IR 5 MG TAB (IMMEDIATE RELEASE) PO PRN (15:23)
--- NOTE | 2022-01-04 15:23 | History & Physical Report ---
Date of Service January 04, 2022 Assessment & Plan (1) Abnormal LFTs: Plan: Steadily rising since November 2021. Prior to that his LFTs were normal. Recent Hep A, B, and C titers were negative. He is on chronic statin therapy but doubt this is causing the rise in LFTs. COVID testing is negative. He has no other signs/symptoms of another viral process such as EBV, CMV, etc. Dr Chavez from oncology was concerned that recent immunotherapy initiated in October (Nivolumab) for his stage 4 esophageal/gastric ca may have been the culprit for his acute hepatitis. He was given prednisone 50mg daily x 7 days (completed the course yesterday) to see if his LFTs would have any response but his LFTs have trended even higher despite the prednisone. CT abd/pelvis was obtained this evening. This appears to show intra-hepatic biliary ductal dilatation, and CBD narrowing/stenosis. ?external compression of CBD by lymphadenopathy? other cause? Will obtain MRCP for further information. Repeat LFTs in am. Check an ammonia level in am due to fatigue, weakness, etc. Will also consult [facility] for their opinion regarding this issue. If MRCP confirms the CT findings - need for ERCP? Although he has an elevated WBC count this is likely from the recent prednisone and not cholangitis. I would have a low threshold for initiating antibiotics, however, with any clinical worsening. Dr Chavez and I discussed the possibility of utilizing IV solumedrol with c ellcept in the event his acute hepatitis was from his immunotherapy. Since it appears that the issue is more anatomic will HOLD the steroids/cellcept at this time. (2) Common bile duct stenosis: Plan: concern for, as seen on CT a/p this evening. see #1 above. repeat LFTs am. (3) Intrahepatic bile duct dilation: Plan: as seen on CT abd/pelvis today. see #1 above. (4) Acute hepatitis: Plan: see above. recent Hep A, B, and C all negative. COVID negative. consider CMV/EBV titers but defer as it appears an anatomical obstruction is the cause of the high LFTs. 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 follows with Dr Chavez at [facility]. formal consult placed to Dr Chavez. see [facility] for details of chemotherapy since his diagnosis. (6) Failure to thrive: Plan: 2nd #5. depression also likely playing a role as well. strongly consider remeron 7.5mg HS. cont J-tube feedings. (7) Jejunostomy tube present: Plan: current J-tube feedings -- Peptamen 1.5, 1250cc over 12 hours (6p-6a). Thus, 105cc/hr continuously during those hours. Will ask nutrition to see in consult to confirm these will continue to provide his dietary needs. May allow diet as tolerated/as desired. (8) Sinus tachycardia: Plan: Present since early 2021. Echo 07/2021 (done at [facility]) with EF 55%. CTA chest today without PE. H/H acceptable. TSH wnl today. No pain. No anxiety. No pericardial effusion on CTA chest. (9) Gastric cancer: Plan: as above (10) Iron deficiency anemia: Plan: s/p IV iron in the past. H/H mildly low but acceptable today. (11) Acid reflux: Plan: Cont PPI. (12) DVT prophylaxis: Plan: If no procedures are planned during this stay then add heparin or lovenox SC. (13) Candidiasis of mouth and esophagus: Plan: nystatin solution 5cc qid swish/spit (14) Depression: Plan: strongly consider Remeron or similar agent Plan: will give 1 L of saline post-CT to prevent contrast-induced nephropathy updated at bedside care d/w Dr Chavez Admission and Anticipated Discharge Date Admission Date: January 04, 2022 History of Present Illness Chief Complaint: abnormal liver function tests Primary Care Provider: Uzair Coffman PA-C 56yo male with stage 4 esophageal/gastric adenocarcinoma diagnosed July 2021 after EGD on 07/26/21 in [place] revealed a large partially obstructing mass in the esophagus as well as diffuse abnormalities of the stomach. All biopsies at that time were positive for adenocarcinoma of the esophagus/stomach. He was initiated on cisplatin/docetaxel in early August and underwent 3 treatment cycles. Switched to CAPOX-nivolumab in October, and in November the CAPOX portion was discontinued but he was continued on nivolumab. His most recent oncological care has been Dr Sheyla Chavez at [facility]. Today Mr Zhang presents as a direct admission to the hospital due to worsening LFTs. AST/ALT/Alk phos were generally normal in early November 2021 but began to rise late in November. His LFTs were repeated again today and unfortunately continue to rise. There was concern that recent administration of his Nivolumab may have been the cause of such and thus he was placed on a 7 day course of oral prednisone 50mg/day. He completed that course yesterday. Despite such the LFTs have not improved. Denies any etoh or tylenol usage. No other recent medication additions that cause hepatotoxicity. He denies any change in his chronic GI stomach discomfort/upset. No RUQ pain. Appetite has been quite poor. Takes very little nourishment by mouth. No fevers or chills. Continues j-tube feedings with peptamen 1.5, five - 250cc cans, running from 6pm to 6am each day/night. Stools have been normal; last BM was this am - no blood, no melena. No recent sick contacts or travel. Admits to ongoing depression. Allergies Allergy/AdvReac Type Severity Reaction Status Date / Time No Known Allergies Allergy Verified 11/22/21 15:07 Home Medications Medication Instructions Recorded Confirmed Type acetaminophen 500 mg tablet 500 mg PO QID PRN 08/16/21 11/22/21 History (Tylenol Extra Strength) oxycodone 5 mg tablet 5 mg PO Q4H PRN 08/16/21 11/22/21 History olanzapine 2.5 mg tablet 2.5 mg PO DIRECTED PRN 08/23/21 11/22/21 History ondansetron HCl 8 mg tablet 8 mg PO Q8 PRN 08/23/21 11/22/21 History cyanocobalamin (vitamin B-12) 1,000 mcg SUBLINGUAL DAILY #50 ea 08/31/21 11/22/21 Rx 1,000 mcg sublingual lozenge pantoprazole 40 mg tablet,delayed 40 mg PO QAM #30 tab 08/31/21 11/22/21 Rx release (Protonix) silver sulfadiazine 1 % topical 1 applic TOPICAL BID PRN #50 g 09/05/21 11/22/21 Rx cream (Silvadene) capecitabine 500 mg tablet 500 mg PO DIRECTED 11/22/21 11/22/21 History dronabinol 5 mg capsule 5 mg PO BID 11/22/21 11/22/21 History Past Med/Surg History Medical History 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" following with [facility] Gastric cancer "poorly differentiated adenocarcinoma" following with [facility] Gastritis GERD (gastroesophageal reflux disease) Iron deficiency anemia Left inguinal hernia Small bowel obstruction Umbilical hernia Surgical History H/O esophagogastroduodenoscopy H/O exploratory laparotomy (08/22/21) Exploratory Laparotomy, Abdominal Washout - Ricardo Pederson DO 08/22/2021 H/O hernia repair RT INGUINAL HERNIA X 2 Jejunostomy tube present (08/22/21) p Insertion of Infusaport Left Subclavian(Left) - Ricardo Pederson DO s Laproscopic Assisted Jejunostomy Tube Placement with Repair of Umbilical Hernia(Not Applicable) - Ricardo Pederson DO 08/22/21 Port-A-Cath in place (08/22/21) p Insertion of Infusaport Left Subclavian(Left) - DO michaelle Banks Laproscopic Assisted Jejunostomy Tube Placement with Repair of Umbilical Hernia- Ricardo Pederson DO 08/22/21 S/P rotator cuff repair RT Russell teeth removed Family History Father Cancer Prostate Grandmother (Paternal) Cancer Lung cancer Other No family history of adverse response to anesthesia Social History Smoking Status: Never smoker Second Hand Exposure: No; Do You Dip or Chew Tobacco: No; Hx Alcohol Use: No Hx Substance Use: Yes Non-Prescribed Medications: Marijuana Last Used Substance: Unknown Last Used Substance Other:: LAST USED>THIS WEEK *ADVISED by RN Preferred Language: Spanish Communication Ability: Effective Visual Impairment: No Limitations Hearing Ability: Normal Deburrer Strip Required: No Beliefs That Will Affect Care: None marital status: Current Living Situation: Spouse Current Living Situation Comment: Lives with and Family. 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 How many Children do You have: 1 Other Information That Helps Us Care for You: No Feels Safe at Home: Yes Safety Concerns: Feels Safe At This Time Diet Comment: Ensure supplement daily during the past year weight has: decreased > 10 lbs Assistive Devices: Glasses Review of Systems Review of Systems: gen - no fevers/chills; severe anorexia; had had significant weight loss in late 2020, but weight has been somewhat stable last few weeks eyes - no visual change HENT - dysphagia for liquids/solids; some odynophagia; no nasal congestion or ear pain neck - no pain cv - no chest pain pulm - no dyspnea or cough GI - mild, chronic abdominal pain/discomfort; no vomiting; j-tube feedings have been tolerated; normal BM this am without blood - no dysuria musculo - no joint pains psych - ongoing depression skin - no rashes endo - no diabetes neuro - no focal motor weakness Physical Exam Physical Exam: gen - thin, cachectic, NAD, flat affect eyes - PERRL HENT - thrush plaques buccal mucosa; MMM; nose clear neck - no JVD, no masses lymph - no cervical lymphadenopathy heart - tachy, s1 s2, no murmur lungs - decreased BS right base, otherwise CTA b/l abd - distended (ascites?), liver edge palpable, NT, BS+; j-tube site clean, no abd wall erythema ext - no edema, pulses 2+ b/l skin - no rash; no jaundice neuro - strength 5/5 x 4 exts, DTRs 2+ b/l psych - a/o x 3, flat affect Results & Data Results & Data ([facility]) Vital Signs (Past 12 Hours) Vital Signs Temp Pulse Resp BP Pulse Ox 01/04/22 22:35 36.6 C 109 H 18 125/87 95 01/04/22 14:30 36.8 C 106 H 18 132/85 97 Intake and Output 01/04/22 01/04/22 01/04/22 06:59 14:59 22:59 Other: Weight 53.1 kg 53.1 kg Weight Measurement Method Standing Scale Patient Weight 01/05/22 06:59 Weight 53.1 kg Laboratory Results Laboratory Results - last 24 hr 01/04/22 16:48 SARS-CoV-2, RNA, NAAT NEGATIVE CBC, CMP, mag, TSH noted from this AM (WBC 14, ast/alt/alk phos elevated; t.bili wnl); mag wnl; TSH wnl Diagnostic Findings Abdomen/Pelvis CT 01/04/22 16:29 CT OF THE ABDOMEN AND PELVIS WITH CONTRAST CLINICAL HISTORY: abnormal LFTs, gastric cancer, eval liver mets COMPARISON STUDY: CT of the abdomen and pelvis November 22, 2021. PET/CT October 26, 2021. TECHNIQUE: Following IV administration of 118 mL of Optiray, axial images of the abdomen and pelvis were obtained from the lung bases to the proximal femurs. Images were reviewed in the axial, sagittal, and coronal planes. IV contrast was administered without complication. Automated exposure control was utilized for the study. A dose lowering technique was utilized adhering to the principles of ALARA. CT DOSE: 589.20 mGy.cm FINDINGS: Please note that the chest CT will be reported separately. No pneumatosis, free air or portal venous gas is present. Jejunostomy tube is in place. There is no evidence for a bowel obstruction. Bowel dilatation shown on exam of November 22, 2021 has resolved. A small amount of ascites within the abdomen and pelvis has increased. Numerous suspected omental/peritoneal implants are noted. Perirenal nodules have decreased. Abdominal lymphadenopathy is similar to CT of November 22, 2021. Index left para-aortic lymph node measures 2.9 x 2.1 cm. Index radha hepatis lymph node measures 2.3 x 2.9 cm. Mild to moderate intrahepatic biliary ductal dilatation is noted. There is multifocal narrowing/irregularity of the common bile duct. Caliber of the main pancreatic duct is at upper limits of normal. There are no suspicious hepatic lesions. Spleen is unremarkable. Numerous adrenal nodules have progressed. There is no hydronephrosis. A few left renal cysts are present. Major vasculature is patent. Left inguinal hernia contains a portion of the sigmoid colon. This does not result in a bowel obstruction. Gallbladder is distended. This is unchanged. Radha hepatis lymphadenopathy has mass effect upon the main portal vein although this vessel is patent. Gastric wall thickening is again noted. This likely reflects the primary tumor. IMPRESSION: 1. Increase in mild to moderate intrahepatic biliary ductal dilatation. Multifocal narrowing/irregularity of the common bile duct which may result in the biliary ductal dilatation. The etiology for is not clear on this exam although could be due to extrinsic compression by adenopathy. No suspicious hepatic lesions. 2. Extensive metastatic disease, as described above. Progression of peritoneal carcinomatosis with a small amount of ascites. No bowel obstruction. Interval decrease in perirenal nodules/carcinomatosis. 3. Persistent extensive lymphadenopathy and gastric wall thickening. ACT 112: Negative or not required by law. Electronically signed by: Andrew Spears M.D. 01/04/2022 6:36 PM Chest CTA 01/04/22 16:29 CT ANGIOGRAPHY OF THE CHEST, PULMONARY EMBOLUS PROTOCOL CLINICAL HISTORY: Gastric cancer, tachycardia, evaluate for PE. COMPARISON STUDY: Chest CT December 07, 2021. TECHNIQUE: Following IV administration of 118 mL of Optiray, helical axial images of the chest were obtained utilizing the pulmonary embolus protocol. Maximal intensity projections and sagittal and coronal reformats were viewed on an independent 3D workstation. IV contrast was administered without complication. Automated exposure control was utilized for the study. A dose lowering technique was utilized adhering to the principles of ALARA. FINDINGS: Left subclavian [id number] is in place. No pulmonary emboli are identified. There is moderate coronary artery calcification. Size of the heart is normal. There is no pericardial effusion. Circumferential wall thickening of the distal esophagus is again noted. No pneumothorax is present. A moderate right pleural effusion has decreased in size since CT of December 07, 2021. Trace left pleural effusion is similar to prior exam. Persistent right basilar consolidation is noted. 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 This has slightly decreased. Mediastinal and bilateral hilar lymphadenopathy has decreased as well. Abdomen and pelvis CT will be reported separately. No suspicious lesions within the bony thorax. IMPRESSION: 1. No pulmonary emboli identified. 2. Moderate right pleural effusion, decreased in size since CT of December 07, 2021. Persistent right basilar consolidation. No change in a trace left pleural effusion. 3. Extensive lymphangitic carcinomatosis, mildly decreased since prior exam. 4. Interval decrease in mediastinal and bilateral hilar lymphadenopathy. ACT 112: Negative or not required by law. Electronically signed by: Andrew Spears M.D. 01/04/2022 5:57 PM Code Status & VTE Plan Code Status full code PG Care Time/CCT Total # of Minutes Spent Total Time Spent with Patient: Total time spent is greater than 50% in coordination of care (as documented) at patient's floor/unit and/or counseling patient: Coding Level of Care Code 90582 Initial Inpt Care Lvl 3 Diagnoses Abnormal LFTs R79.89 Acute hepatitis B17.9 Metastatic adenocarcinoma C79.9 Failure to thrive Jejunostomy tube present Z93.4 Sinus tachycardia R00.0 Gastric cancer C16.9 Iron deficiency anemia D50.9 Acid reflux K21.9 DVT prophylaxis Z29.9 Intrahepatic bile duct dilation K83.8 Common bile duct stenosis K83.1 Candidiasis of mouth and esophagus B37.81; B37.0 Depression F32.A
[2022-01-04] MEDS ORDERED: ONDANSETRON INJ 2 MG/ML 2 ML VIAL IV PRN (15:25)
[2022-01-04] MEDS ORDERED: MoRPHine SULFATE 2 MG/ML CARP IV PRN (15:28)
[2022-01-04] MEDS ORDERED: HEPARIN 100 UNIT/ML 5ML FLUSH ONE (16:12)
[2022-01-04] MEDS: MYCOPHENOLATE MOFETIL 250 MG CAP PO SCH (16:34)
[2022-01-04] MEDS: methylPREDNISolone 30 MG in SYRINGE 0 ML IV SCH (16:34)
[2022-01-04] MEDS ORDERED: SODIUM CHLORIDE 0.9% 1000ML 1,000 ML IV SCH (17:00)
[2022-01-04] MEDS ORDERED: OPTIRAY 320 125ml IV ONE (17:36)
--- NOTE | 2022-01-04 17:59 | CT Scan Report ---
CT ANGIOGRAPHY OF THE CHEST, PULMONARY EMBOLUS PROTOCOL CLINICAL HISTORY: Gastric cancer, tachycardia, evaluate for PE. COMPARISON STUDY: Chest CT December 07, 2021. TECHNIQUE: Following IV administration of 118 mL of Optiray, helical axial images of the chest were o btained utilizing the pulmonary embolus protocol. Maximal intensity projections and sagittal and cor onal reformats were viewed on an independent 3D workstation. IV contrast was administered without co mplication. Automated exposure control was utilized for the study. A dose lowering technique was ut ilized adhering to the principles of ALARA. FINDINGS: Left subclavian [id number] is in place. No pulmonary emboli are identified. There is mo derate coronary artery calcification. Size of the heart is normal. There is no pericardial effusion. Circumferential wall thickening of the distal esophagus is again noted. No pneumothorax is present. A moderate right pleural effusion has decreased in size since CT of December 07, 2021. Trace left pleural e ffusion is similar to prior exam. Persistent right basilar consolidation is noted. Extensive lymphang itic carcinomatosis is again noted. This has slightly decreased. Mediastinal and bilateral hilar lymp hadenopathy has decreased as well. Abdomen and pelvis CT will be reported separately. No suspicious l esions within the bony thorax. IMPRESSION: 1. No pulmonary emboli identified. 2. Moderate right pleural effusion, decreased in size since CT of December 07, 2021. Persistent right basi lar consolidation. No change in a trace left pleural effusion. 3. Extensive lymphangitic carcinomatosis, mildly decreased since prior exam. 4. Interval decrease in mediastinal and bilateral hilar lymphadenopathy. ACT 112: Negative or not required by law. Electronically signed by: Andrew Spears M.D. 01/04/2022 5:57 PM
--- NOTE | 2022-01-04 18:38 | CT Scan Report ---
CT OF THE ABDOMEN AND PELVIS WITH CONTRAST CLINICAL HISTORY: abnormal LFTs, gastric cancer, eval liver mets COMPARISON STUDY: CT of the abdomen and pelvis November 22, 2021. PET/CT October 26, 2021. TECHNIQUE: Following IV administration of 118 mL of Optiray, axial images of the abdomen and pelvis w ere obtained from the lung bases to the proximal femurs. Images were reviewed in the axial, sagittal, and coronal planes. IV contrast was administered without complication. Automated exposure control w as utilized for the study. A dose lowering technique was utilized adhering to the principles of EMILY Richards. CT DOSE: 589.20 mGy.cm FINDINGS: Please note that the chest CT will be reported separately. No pneumatosis, free air or port al venous gas is present. Jejunostomy tube is in place. There is no evidence for a bowel obstruction. Bowel dilatation shown on exam of November 22, 2021 has resolved. A small amount of ascites within the ab domen and pelvis has increased. Numerous suspected omental/peritoneal implants are noted. Perirenal n odules have decreased. Abdominal lymphadenopathy is similar to CT of November 22, 2021. Index left para-ao rtic lymph node measures 2.9 x 2.1 cm. Index patricia hepatis lymph node measures 2.3 x 2.9 cm. Mild to moderate intrahepatic biliary ductal dilatation is noted. There is multifocal narrowing/irregularity of the common bile duct. Caliber of the main pancreatic duct is at upper limits of normal. There are no suspicious hepatic lesions. Spleen is unremarkable. Numerous adrenal nodules have progressed. Ther e is no hydronephrosis. A few left renal cysts are present. Major vasculature is patent. Left inguina l hernia contains a portion of the sigmoid colon. This does not result in a bowel obstruction. Gallbl adder is distended. This is unchanged. Patricia hepatis lymphadenopathy has mass effect upon the main po rtal vein although this vessel is patent. Gastric wall thickening is again noted. This likely reflect s the primary tumor. IMPRESSION: 1. Increase in mild to moderate intrahepatic biliary ductal dilatation. Multifocal narrowing/irregula rity of the common bile duct which may result in the biliary ductal dilatation. The etiology for is n ot clear on this exam although could be due to extrinsic compression by adenopathy. No suspicious hep atic lesions. 2. Extensive metastatic disease, as described above. Progression of peritoneal carcinomatosis with a small amount of ascites. No bowel obstruction. Interval decrease in perirenal nodules/carcinomatosis. 3. Persistent extensive lymphadenopathy and gastric wall thickening. ACT 112: Negative or not required by law. Electronically signed by: Andrew Spears M.D. 01/04/2022 6:36 PM
[2022-01-05] MEDS ORDERED: HEPARIN 100 UNIT/ML 5ML FLUSH FLUSH PRN (01:29)
[2022-01-05] MEDS ORDERED: [UNRECOGNIZED DRUG - REMARK] SCH (06:00)
[2022-01-05] MEDS: NYSTATIN SUSP 500,000 U/5 ML UDC PO SCH ×4 (07:52→21:08)
[2022-01-05] MEDS: TUBE FEEDING WATER FLUSH JT SCH ×3 (07:52→16:22)
[2022-01-05 08:00] LABS: Hemoglobin 9.8 g/dl (14.0-18.0); Mean Corpuscular Hemoglobin 28.6 pg (25.0-34.0); Mean Corpuscular Hgb Conc 31.6 g/dL (32.0-36.0); Mean Corpuscular Volume 90.4 fL (80.0-100.0); Mean Platelet Volume 8.5 fL (9.4-12.4); Platelet Count 342 K/uL (130-400); RDW Coefficient of Variation 19.6 % (11.5-14.5); Red Blood Count 3.43 M/uL (4.63-6.08); White Blood Count 14.19 K/ul (4.8-10.8)
--- NOTE | 2022-01-05 08:22 | Gastrointestinal Consultation ---
Date of Consultation January 05, 2022 Assessment & Plan (1) Intrahepatic bile duct dilation: (2) Abnormal LFTs: (3) Esophageal cancer: (4) Jejunostomy tube present: This is a 56 y/o male with metastatic esophageal CA admitted w/ progressively worsening LFTs for which we are consulted. CT suggestive of IHDD w/ multifocal narrowing of the CBD. Given his lab and image findings, we wonder about intraluminal vs extrinsic etiologies involving the CBD leading to the elevated LFTs. On exam abd soft, nontender, he appears chronically ill but is resting comfortably. - Keep NPO - IVF - Supportive care for other co-morobidities as per primary team - Plan for ERCP later today to evaluate his abnormal labs/image findings Thank you for allowing us to participate in the care of this patient. Please call with any acute changes, questions or concerns. Please see addendum below with additional recommendation from my supervising physician. Supervising Physician Co-Signing Physician Notes I saw and evaluated the patient. The patient has noted having some abdominal discomfort over the past few weeks manifest by early satiety. Of note he does have advanced esophageal cancer diagnosed in August in [place]. The patient did have a feeding tube placed by general surgery at this facility a number of months ago. The patient has been through chemotherapy but never through radiation therapy. The patient noted that he has continued difficulty with swallowing but has never been approached by a provider for an esophageal stent. Imaging today reveals dilation of the common bile duct and intrahepatic ducts. This is most consistent with metastatic disease likely from local lymphadenopathy. Physical examination Thin, emaciated male Abdomen soft/mild tenderness in the right upper quadrant Impression: Patient with a history of metastatic esophageal cancer now with what appears to be biliary obstruction likely from local lymphadenopathy. The patient has a very difficult presentation given his esophageal mass as no prior stent has been placed. I did discuss the options with the patient which include upper endoscopy with esophageal stent placement, endoscopic ultrasound and finally ERCP. We have discussed the risks and benefits of the procedures to include bleeding infection perforation, pain, stent migration and need for follow-up studies. If we are unable to gain access to the biliary tree via a transpapillary route then perhaps the patient may be best served with interventional radiology guided approaches. Plan Upper endoscopy with possible esophageal stent placement Endoscopic ultrasound ERCP with biliary stent placement History of Present Illness Reason for Consultation: abnl LFTs, biliary obstruction? Requesting Physician: Dr. House Attending Physician: Dionisio Rosado MD History of Present Illness This is a 56 y/o male with PMHx stage 4 esophageal/gastric adenocarcinoma diagnosed July 2021 after EGD on 07/26/21 in [place] revealed a large partially obstructing mass in the esophagus as well as diffuse abnormalities of the stomach; all bx positive for adenocarcinoma of the esophagus/stomach. He was tx w/ cisplatin/docetaxel in early August x 3 tx cycles. Switched to CAPOX- nivolumab in October, and in November the CAPOX portion was discontinued but he was continued on nivolumab. He presented yesterday w/ worsening LFTs which began rising in late November. There was concern that recent administration of his Nivolumab may have been the cause of such and thus he was placed on a 7 day course of oral prednisone 50mg/day. He completed that course yesterday. Despite that LFTs have not improved. Has chronic abd discomfort that is unchanged. Stools have been formed; no diarrhea. Has occasional nausea but no vomiting. No fever, chills, dark urine, alegria stools, CP, SOB, leg swelling, hematochezia, hematemesis, melena. He take some Boost by mouth but otherwise has J-tube feedings 6p-6a every night. CTAP w/ "Increase in mild to moderate intrahepatic biliary ductal dilatation. Multifocal narrowing/irregularity of the common bile duct which may result in the biliary ductal dilatation. The etiology for is not clear on this exam although could be due to extrinsic compression by adenopathy. No suspicious hepatic lesions." Denies any recent ETOH, Tylenol, NSAID or AC use. On chronic (not new) statin tx. Hep A/B/C titers neg; neg COVID. Allergies Allergy/AdvReac Type Severity Reaction Status Date / Time No Known Allergies Allergy Verified 11/22/21 15:07 Home Medications Medication Instructions Recorded Confirmed Type acetaminophen 500 mg tablet 500 mg PO QID PRN 08/16/21 11/22/21 History (Tylenol Extra Strength) oxycodone 5 mg tablet 5 mg PO Q4H PRN 08/16/21 11/22/21 History olanzapine 2.5 mg tablet 2.5 mg PO DIRECTED PRN 08/23/21 11/22/21 History ondansetron HCl 8 mg tablet 8 mg PO Q8 PRN 08/23/21 11/22/21 History cyanocobalamin (vitamin B-12) 1,000 mcg SUBLINGUAL DAILY #50 ea 08/31/21 11/22/21 Rx 1,000 mcg sublingual lozenge pantoprazole 40 mg tablet,delayed 40 mg PO QAM #30 tab 08/31/21 11/22/21 Rx release (Protonix) silver sulfadiazine 1 % topical 1 applic TOPICAL BID PRN #50 g 09/05/21 11/22/21 Rx cream (Silvadene) capecitabine 500 mg tablet 500 mg PO DIRECTED 11/22/21 11/22/21 History dronabinol 5 mg capsule 5 mg PO BID 11/22/21 11/22/21 History Patient History Medical History 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" following with [facility] Gastric cancer "poorly differentiated adenocarcinoma" following with [facility] Gastritis GERD (gastroesophageal reflux disease) Iron deficiency anemia Left inguinal hernia Small bowel obstruction Umbilical hernia Surgical History H/O esophagogastroduodenoscopy H/O exploratory laparotomy (08/22/21) Exploratory Laparotomy, Abdominal Washout - Ricardo Pederson DO 08/22/2021 H/O hernia repair RT INGUINAL HERNIA X 2 Jejunostomy tube present (08/22/21) p Insertion of Infusaport Left Subclavian(Left) - Ricardo Pederson DO s Laproscopic Assisted Jejunostomy Tube Placement with Repair of Umbilical Hernia(Not Applicable) - Ricardo Pederson DO 08/22/21 Port-A-Cath in place (08/22/21) p Insertion of Infusaport Left Subclavian(Left) - Ricardo Pederson DO s Laproscopic Assisted Jejunostomy Tube Placement with Repair of Umbilical Hernia- Ricardo Pederson DO 08/22/21 S/P rotator cuff repair RT [place] teeth removed Family History Father Cancer Prostate Grandmother (Paternal) Cancer Lung cancer Other No family history of adverse response to anesthesia Social History Smoking Status: Never smoker Second Hand Exposure: No; Do You Dip or Chew Tobacco: No; Hx Alcohol Use: No Hx Substance Use: Yes Non-Prescribed Medications: Marijuana Last Used Substance: Unknown Last Used Substance Other:: LAST USED>THIS WEEK *ADVISED by RN Preferred Language: Bulgarian Communication Ability: Effective Visual Impairment: No Limitations Hearing Ability: Normal Frame Changer Required: No Beliefs That Will Affect Care: None marital status: Current Living Situation: Spouse Current Living Situation Comment: Lives with and Family. current occupational status: employed current occupation: [employer] How many Children do You have: 1 Other Information That Helps Us Care for You: No Feels Safe at Home: Yes Safety Concerns: Feels Safe At This Time Diet Comment: Ensure supplement daily during the past year weight has: decreased > 10 lbs Assistive Devices: Cane and Walker Assistive Devices Comment: shower chair Review of Systems Review of Systems: All systems reviewed & are unremarkable except as noted in HPI & below Physical Exam Constitutional: WD/WN, vitals as above (chronically ill) Eyes: PERRL, conjunctivae normal, anicteric sclerae ENMT: external ear and nose normal, oropharynx normal Respiratory: normal respiratory effort, lungs clear to auscultation Cardiovascular: RRR, no murmur, no edema Gastrointestinal (Abdomen): normal bowel sounds, soft, nontender, no hepatosplenomegaly (J-tube in place) Skin: no rashes, warm and dry slightly jaundiced Psychiatric: A+Ox3, euthymic affect Results & Data ([facility]) Vital Signs (Past 12 Hours) Vital Signs Temp Pulse Resp BP Pulse Ox 01/05/22 06:28 36.4 C L 106 H 18 146/88 H 97 01/04/22 22:35 36.6 C 109 H 18 125/87 95 Laboratory Results 01/05/22 01/05/22 01/05/22 Range/Units 07:22 07:22 07:22 WBC 14.19 H (4.8-10.8) K/ul RBC 3.43 L (4.63-6.08) M/uL Hgb 9.8 L (14.0-18.0) g/dl Hct 31.0 L (40.1-51.0) % MCV 90.4 (80.0-100.0) fL MCH 28.6 (25.0-34.0) pg MCHC 31.6 L (32.0-36.0) g/dL RDW Std Deviation 64.0 H (36.4-46.3) fL RDW Coeff of Briana 19.6 H (11.5-14.5) % Plt Count 342 (130-400) K/uL MPV 8.5 L (9.4-12.4) fL Sodium Pending Potassium Pending Chloride Pending Carbon Dioxide Pending Anion Gap Pending BUN Pending Creatinine Pending Est Cr Clr Drug Dosing Pending Est GFR ( Amer) Pending Est GFR (Non-Af Amer) Pending BUN/Creatinine Ratio Pending Glucose Pending Calcium Pending Total Bilirubin Pending AST Pending ALT Pending Alkaline Phosphatase Pending Ammonia 45.0 (18-72) umol/L Total Protein Pending Albumin Pending Globulin Pending Albumin/Globulin Ratio Pending SARS-CoV-2, RNA, NAAT (NEGATIVE) 01/04/22 Range/Units 16:48 WBC (4.8-10.8) K/ul RBC (4.63-6.08) M/uL Hgb (14.0-18.0) g/dl Hct (40.1-51.0) % MCV (80.0-100.0) fL MCH (25.0-34.0) pg MCHC (32.0-36.0) g/dL RDW Std Deviation (36.4-46.3) fL RDW Coeff of Briana (11.5-14.5) % Plt Count (130-400) K/uL MPV (9.4-12.4) fL Sodium Potassium Chloride Carbon Dioxide Anion Gap BUN Creatinine Est Cr Clr Drug Dosing Est GFR ( Amer) Est GFR (Non-Af Amer) BUN/Creatinine Ratio Glucose Calcium Total Bilirubin AST ALT Alkaline Phosphatase Ammonia (18-72) umol/L Total Protein Albumin Globulin Albumin/Globulin Ratio SARS-CoV-2, RNA, NAAT NEGATIVE (NEGATIVE) Diagnostic Findings CTAP: FINDINGS: Please note that the chest CT will be reported separately. No pneumatosis, free air or portal venous gas is present. Jejunostomy tube is in place. There is no evidence for a bowel obstruction. Bowel dilatation shown on exam of November 22, 2021 has resolved. A small amount of ascites within the abdomen and pelvis has increased. Numerous suspected omental/peritoneal implants are noted. Perirenal nodules have decreased. Abdominal lymphadenopathy is similar to CT of November 22, 2021. Index left para-aortic lymph node measures 2.9 x 2.1 cm. Index radha hepatis lymph node measures 2.3 x 2.9 cm. Mild to moderate intrahepatic biliary ductal dilatation is noted. There is multifocal narrowing/irregularity of the common bile duct. Caliber of the main pancreatic duct is at upper limits of normal. There are no suspicious hepatic lesions. Spleen is unremarkable. Numerous adrenal nodules have progressed. There is no hydronephrosis. A few left renal cysts are present. Major vasculature is patent. Left inguinal hernia contains a portion of the sigmoid colon. This does not result in a bowel obstruction. Gallbladder is distended. This is unchanged. Radha hepatis lymphadenopathy has mass effect upon the main portal vein although this vessel is patent. Gastric wall thickening is again noted. This likely reflects the primary tumor. IMPRESSION: 1. Increase in mild to moderate intrahepatic biliary ductal dilatation. Multifocal narrowing/irregularity of the common bile duct which may result in the biliary ductal dilatation. The etiology for is not clear on this exam although could be due to extrinsic compression by adenopathy. No suspicious hepatic lesions. 2. Extensive metastatic disease, as described above. Progression of peritoneal carcinomatosis with a small amount of ascites. No bowel obstruction. Interval decrease in perirenal nodules/carcinomatosis. 3. Persistent extensive lymphadenopathy and gastric wall thickening.
[2022-01-05 08:37] LABS: Alanine Aminotransferase 568 U/L (7-52); Albumin Globulin Ratio 1.1 (0.9-2); Albumin Level 3.1 gm/dl (3.4-5.0); Alkaline Phosphatase 610 U/L (34-104); Anion Gap 8 (3-11); Aspartate Aminotransferase 396 U/L (13-39); BUN Creatinine Ratio 61.9 (10-20); Bilirubin,Total 1.1 mg/dl (0.2-1.0); Blood Urea Nitrogen 26 mg/dl (6-23); Calcium 8.8 mg/dl (8.5-10.1); Carbon Dioxide 27 mmol/L (21-32); Chloride 98 mmol/L (98-107); Creatinine Clr Calc Pharmacy 147.5 ml/min; Est GFR (African American) > 150.0 ml/min; Est GFR (Non-African American) 130.1 ml/min; Globulin 2.9 gm/dl (2.5-4.0); Glucose 111 mg/dl (70-99(Fasting)); Potassium 4.1 mmol/L (3.5-5.1); Sodium 133 mmol/L (136-145)
--- NOTE | 2022-01-05 08:54 | Consultation Report ---
DATE OF SERVICE: 01/05/2022. REASON FOR CONSULTATION: Gastric cancer. HISTORY OF PRESENT ILLNESS: Mr. Zhang is a pleasant 56-year-old patient known to me with metastatic gastric cancer for which he is status post 3 cycles of docetaxel/cisplatin and most recently was started on nivolumab for MSI-high metastatic gastric malignancy. He was scheduled for outpatient US abdomen later this week but was noted to have worsening LFT abnormalities yesterday prior to receiving chemotherapy (FOLFOX/Nivolumab) for which treatment was held and direct admission recommended for further workup. Since admission, patient has had CT abdomen and pelvis, which revealed decrease in size of right pleural effusion, mildly decreased extensive lymphatic carcinomatosis as well as decrease in mediastinal/bilateral hilar lymphadenopathy. CT abdomen and pelvis, however, revealed increase in mild to moderate intrahepatic biliary ductal dilatation, multifocal narrowing/irregularity of the common bile duct, possibly due to extrinsic compression by adenopathy with no suspicious hepatic lesions as well as extensive metastatic disease with progression of peritoneal carcinomatosis and small amount of ascites as well as decrease in the perirenal nodules/carcinomatosis with persistent extensive lymphadenopathy and gastric wall thickening. HOME MEDICATIONS: 1. Tylenol as needed. 2. Oxycodone 5 mg p.o. q.4 hours as needed. 3. Zofran 8 mg q.8 hours as needed. 4. Vitamin B12 1000 mcg sublingual daily. 5. Pantoprazole 40 mg p.o. daily. 6. Dronabinol 5 mg p.o. b.i.d. PAST MEDICAL HISTORY: 1. Metastatic gastric cancer. 2. Gastritis. 3. GERD. 4. History of small bowel obstruction. PAST SURGICAL HISTORY: 1. Exploratory laparotomy. 2. Hernia repair. 3. G-tube placement. 4. Rotator cuff repair. FAMILY HISTORY: Prostate cancer in his father and lung cancer in his grandmother. SOCIAL HISTORY: Denies smoking, alcohol and illicit drug use. REVIEW OF SYSTEMS: CONSTITUTIONAL: He complains of weight loss. No fever or night sweats. EYES: Negative for change in vision. CARDIOVASCULAR: No chest pain, palpitations, dizziness, or diaphoresis. RESPIRATORY: Denies shortness of breath, cough, or hemoptysis. GASTROINTESTINAL: Denies abdominal pain, nausea, vomiting, diarrhea, melena or dyspepsia. GENITOURINARY: Negative for frequency, hematuria or dysuria. NEUROLOGIC: Negative for weakness, headaches or dizziness. LYMPHATIC AND HEMATOLOGIC: Negative for abnormal bleeding or bruising or palpable lymphadenopathy. PHYSICAL EXAMINATION: VITAL SIGNS: Blood pressure 146/88, heart rate 106, respiratory rate 18, temperature 36.4, oxygen saturation 97% on room air. CONSTITUTIONAL: Cachectic-looking gentleman in no obvious respiratory distress. ENT: Negative for palpable masses. RESPIRATORY: Lung sounds were generally clear bilaterally. CARDIOVASCULAR: Heart was regular rate and rhythm without significant murmur, gallops, or rubs. GASTROINTESTINAL: Abdomen slightly distended. No palpable hepatosplenomegaly. Normal bowel sounds. LYMPHATIC SYSTEM: No palpable peripheral lymphadenopathy. EXTREMITIES: No edema bilaterally. LABORATORY DATA: CBC from 01/04/2022 significant for white count of 14.34, hemoglobin 10.1, hematocrit 33.1, platelet count 414. Chemistry: Sodium 133, potassium 4.2, chloride 95, bicarbonate 32, BUN 30, creatinine 0.48, AST 352, ALT 523, alkaline phosphatase 587. IMAGING STUDIES: CTA chest, impression: 1. No pulmonary embolism identified. 2. Moderate right pleural effusion, decreased in size since CT of 12/07/2021. Persistent right basilar consolidation. 3. Extensive lymphatic carcinomatosis, mildly decreased since prior exam. 4. Interval decrease in mediastinal and bilateral hilar lymphadenopathy. CT abdomen and pelvis on 01/04/2022, impression: 1. Increase in mild to moderate intrahepatic biliary ductal dilatation. Multifocal narrowing/irregularity of the common bile duct, which may result in biliary ductal dilatation. Etiology for this is not clear in this exam, although could be due to extrinsic compression by adenopathy. No suspicious hepatic lesions. 2. Extensive metastatic disease. Progression of peritoneal carcinomatosis with small amount of ascites. No bowel obstruction. Interval decrease in perirenal nodules/carcinomatosis. 3. Persistent extensive lymphadenopathy and gastric wall thickening. ASSESSMENT AND PLAN: 1. Metastatic MSI-H gastric adenocarcinoma. 2. Elevated liver function tests. A very pleasant gentleman known to me in oncology clinic at [facility] who has a history of metastatic gastric cancer for which he was most recently on single agent nivolumab due to poor tolerance to CapeOX/nivolumab. The patient presented with worsening liver function test abnormalities, which I initially suspected could be due to immunotherapy-related hepatitis. However, this did not improve with 1-week course of prednisone; hence, hospitalization for worsening liver function test abnormalities. CT abdomen and pelvis obtained on admission revealed significant intrahepatic ductal dilatation, which is most likely contributing to worsening liver function tests. In light of imaging findings, agree with MRCP/ERCP and gastrointestinal consult for possible stent placement. At this time, it does not appear that he has immunotherapy-related hepatotoxicity and would hold off on IV steroids as well as CellCept. If MRCP/ERCP does not show any extrinsic compression or evidence of mechanical obstruction, he would benefit from liver biopsy to assess for immunotherapy- related hepatotoxicity. Thank you for this consult. Oncology will continue following the patient while in the hospital. Please feel free to call if you have any further questions. Job ID: [id number] [facility]
[2022-01-05] MEDS ORDERED: CYANOCOBALAMIN (B-12) 500 MCG TABLET PO SCH (09:00)
[2022-01-05] MEDS ORDERED: PANTOprazole 40 MG TAB PO SCH (09:00)
[2022-01-05] MEDS ORDERED: DEXAMETHASONE SOD INJ 4 MG/ML VIAL ONE (09:27)
[2022-01-05] MEDS ORDERED: ONDANSETRON INJ 2 MG/ML 2 ML VIAL ONE (09:27)
[2022-01-05] MEDS ORDERED: SUCCINYLCHOLINE CHLORIDE 20 MG/ML 10 ML VIAL IV ONE (09:27)
[2022-01-05] MEDS ORDERED: PROPOFOL IV EMULSION 10 MG/ML 20 ML VIAL IV ONE (09:27)
[2022-01-05] MEDS ORDERED: LIDOCAINE 2% 2 ML VIAL/AMP(20MG/ML) INFIL ONE (09:27)
--- NOTE | 2022-01-05 10:41 | Hospitalist Progress Note ---
Date of Service January 05, 2022 Assessment & Plan (1) Abnormal LFTs: Plan: - Steadily rising since 12/28/2021 - Recent Hep A, B, and C titers were negative. - He is on chronic statin therapy but doubt this is causing the rise in LFTs. - COVID testing is negative. - He has no other signs/symptoms of another viral process such as EBV, CMV, etc. - Dr Chavez from oncology was concerned that recent immunotherapy initiated in October (Nivolumab) for his stage 4 esophageal/gastric ca may have been the culprit for his acute hepatitis. He was given prednisone 50mg daily x 7 days (completed the course yesterday) to see if his LFTs would have any response but his LFTs have trended even higher despite the prednisone. - CT abd/pelvis was obtained this evening, showing intra-hepatic biliary ductal dilatation, and CBD narrowing/stenosis. * [facility] consulted, appreciate assistance - is for ERCP today with Dr. Israel - It was discussed possibly using IV solumedrol with cellcept in the event his acute hepatitis was from his immunotherapy. - Since it appears that the issue is more anatomic will HOLD the steroids/cellcept at this time. (2) Acute hepatitis: Plan: - see above. - recent Hep A, B, and C all negative. - COVID negative. - consider CMV/EBV titers but defer as it appears an anatomical obstruction is the cause of the high LFTs. (3) Metastatic adenocarcinoma: Plan: - stage 4 esophageal/gastric ca, dx 07/2021. - follows with Dr Chavez at [facility]. - formal consult placed to Dr Chavez, appreciate assistance - see [facility] for details of chemotherapy since his diagnosis. (4) Failure to thrive: Plan: Secondary to metastatic cancer. - depression also likely playing a role as well. - could consider remeron 7.5mg HS-but this could be addressed as an outpatient - cont J-tube feedings. (5) Jejunostomy tube present: Plan: - current J-tube feedings -- Peptamen 1.5, 1250cc over 12 hours (6p-6a). Thus, 105cc/hr continuously during those hours. - Will ask nutrition to see in consult to confirm these will continue to provide his dietary needs. - May allow diet as tolerated/as desired (NPO this AM for procedure) (6) Sinus tachycardia: Plan: - Present since early 2021. - Echo 07/2021 (done at [facility]) with EF 55%. - CTA chest today without PE. - H/H acceptable. - TSH wnl today. - No pain. No anxiety. - No pericardial effusion on CTA chest. (7) Gastric cancer: Plan: as above (8) Iron deficiency anemia: Plan: s/p IV iron in the past. H/H mildly low but acceptable today. (9) Acid reflux: Plan: Cont PPI. (10) Candidiasis of mouth and esophagus: Plan: nystatin solution 5cc qid swish/spit Plan: For ERCP today. Will await results of that procedure and adjust plan accordingly. Repeat labs ordered for tomorrow morning. Plan to be d/w Dr. Catrina Rosado. Admission and Anticipated Discharge Date Admission Date: January 04, 2022 Subjective Patient seen on daily rounds this morning. He is resting in bed, reports no significant complaints or concerns. Has ongoing generalized fatigue and weakness. He was hospitalized yesterday due to uptrending LFTs. Concern for intrahepatic biliary ductal dilatation and CBD narrowing/stenosis on CT. Pt is for ERCP today with Dr. Israel. He denies abdominal pain. Occasionally with nausea, but none presently. Denies emesis, fever, chills, chest pain, or dyspnea. Review of Systems Review of Systems: All systems reviewed and are unremarkable except as noted in HPI and below. Denies fever, chills, headache, nasal congestion, sore throat, cough, chest pain, shortness of breath, palpitations, orthopnea, PND, abdominal pain, n/v/d, constipation, dysuria, hematuria, frequency, back pain, joint pain or swelling, easy bruising or bleeding, skin lesions or rashes. Physical Exam Physical Exam: GENERAL: 56 yo thin/underweight middle aged WM. NAD. LUNGS: Clear to auscultation bilaterally. No W/R/R. CARDIOVASCULAR: Regular rate and rhythm. ABDOMEN: Soft, nontender. Minimal distention. Liver is palpable. BS normoactive x [address]. EXTREMITIES: No edema. Non-tender. Peripheral pulses +2/4. NEUROLOGIC: A&O x3. PSYCHIATRIC: Cooperative. Depressed mood and flat affect. SKIN: Warm, dry, intact. No rashes or lesions. Results & Data Results & Data ([facility]) Vital Signs (Past 12 Hours) Vital Signs Temp Pulse Resp BP Pulse Ox 01/05/22 06:28 36.4 C L 106 H 18 146/88 H 97 Laboratory Results 01/05/22 07:22 01/05/22 07:22 TB=1.1 (0.7) IWO=321 (352) YLX=399 (523) Alk ggph=577 (587) PG Care Time/CCT Total # of Minutes Spent Total Time Spent with Patient: Total time spent is greater than 50% in coordination of care (as documented) at patient's floor/unit and/or counseling patient: Coding Level of Care Code 12736 Subseq Hosp Care Lvl 2 Diagnoses Abnormal LFTs R79.89 Acute hepatitis B17.9 Metastatic adenocarcinoma C79.9 Failure to thrive Jejunostomy tube present Z93.4 Sinus tachycardia R00.0 Gastric cancer C16.9 Iron deficiency anemia D50.9 Acid reflux K21.9 Candidiasis of mouth and esophagus B37.81; B37.0
--- NOTE | 2022-01-05 10:49 | Anesthesiology Consultation ---
Date of Service January 05, 2022 Assessment & Plan (1) Encounter for pre-operative examination: Chart Review Chart Review: Acceptable Risk for Surgery and Patient NOT seen in Pre Admission Testing Consults Requested none History Surgery Operation Date: 01/05/22 07:55 Proposed Procedures p Endoscopic Retrograde Cholangiopancreato - Ronak Israel DO Height/Weight Height: 5 ft 7 in Weight: 53.1 kg Allergies Allergy/AdvReac Type Severity Reaction Status Date / Time No Known Allergies Allergy Verified 11/22/21 15:07 Medications Home Medications Medication Instructions Recorded Confirmed Last Taken acetaminophen 500 mg tablet 500 mg PO QID PRN 08/16/21 11/22/21 08/21/21 17:00 (Tylenol Extra Strength) oxycodone 5 mg tablet 5 mg PO Q4H PRN 08/16/21 11/22/21 08/22/21 06:00 olanzapine 2.5 mg tablet 2.5 mg PO DIRECTED PRN 08/23/21 11/22/21 08/22/21 ondansetron HCl 8 mg tablet 8 mg PO Q8 PRN 08/23/21 11/22/21 Unknown cyanocobalamin (vitamin B-12) 1,000 mcg SUBLINGUAL DAILY #50 ea 08/31/21 11/22/21 11/22/21 1,000 mcg sublingual lozenge pantoprazole 40 mg tablet,delayed 40 mg PO QAM #30 tab 08/31/21 11/22/21 release (Protonix) silver sulfadiazine 1 % topical 1 applic TOPICAL BID PRN #50 g 09/05/21 11/22/21 Unknown cream (Silvadene) capecitabine 500 mg tablet 500 mg PO DIRECTED 11/22/21 11/22/21 Unknown dronabinol 5 mg capsule 5 mg PO BID 11/22/21 11/22/21 Unknown Active Medications Generic Name Dose Route Start Last Admin Trade Name Freq PRN Reason Stop Dose Admin Cyanocobalamin 1,000 mcg 01/05/22 09:00 01/05/22 07:52 Cyanocobalamin (B-12) 500 Mcg Tablet PO 02/04/22 08:59 1,000 mcg DAILY TIM Administration Heparin Sodium (Porcine) 5 ml 01/05/22 01:29 01/05/22 05:47 Heparin 100 Unit/Ml 5ml Flush FLUSH 02/04/22 01:28 5 ml PRN PRN Administration Flush Methylprednisolone 30 mg/ 0.48 mls @ 1.5 mls/min 01/04/22 16:00 01/04/22 16:34 Syringe IV 02/03/22 15:59 1.5 mls/min Q12H TIM Administration Miscellaneous 1 ea 01/05/22 06:00 01/05/22 05:18 Peptamen 1.5: Stop Order N/A 02/04/22 05:59 1 ea DAILY@0600 TIM Administration Mycophenolate Mofetil 500 mg 01/04/22 15:30 01/04/22 16:34 Mycophenolate Mofetil 250 Mg Cap PO 02/03/22 15:29 500 mg BID TIM Administration Nystatin 5 ml 01/05/22 09:00 01/05/22 07:52 Nystatin Susp 500,000 U/5 Ml Udc PO 01/15/22 08:59 5 ml QID TIM Administration Pantoprazole Sodium 40 mg 01/05/22 09:00 01/05/22 07:52 Pantoprazole 40 Mg Tab PO 02/04/22 08:59 40 mg QAM TIM Administration Sterile Water 30 ml 01/05/22 08:00 01/05/22 07:52 Tube Feeding Water Flush JT 02/04/22 07:59 30 ml Q4@0800,1200,1600 TIM Administration NPO Date Last Intake of Fluids: 01/05/22 Time Last Intake of Fluids: 05:15 Last Intake of Fluids Comment: peptamen tube feeds stopped at that time. Last Intake of Solids Comment: no solids in some time Past Medical History Medical History (Updated 01/05/22 @ 10:50 by Ethan Chavez MD) Abnormal LFTs 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" following with [facility] Failure to thrive Gastric cancer "poorly differentiated adenocarcinoma" following with [facility] Gastritis GERD (gastroesophageal reflux disease) Iron deficiency anemia Left inguinal hernia Small bowel obstruction Umbilical hernia Exercise / Class Metabolic Activity II 4-5 Yardwork/Stairs/Walk up hill Past Family History Family History Father Cancer Prostate Grandmother (Paternal) Cancer Lung cancer Other No family history of adverse response to anesthesia Past Surgical History Surgical History H/O esophagogastroduodenoscopy H/O exploratory laparotomy (08/22/21) Exploratory Laparotomy, Abdominal Washout - Ricardo Pederson, 08/22/2021 H/O hernia repair RT INGUINAL HERNIA X 2 Jejunostomy tube present (08/22/21) p Insertion of Infusaport Left Subclavian(Left) - Ricardo Pederson DO s Laproscopic Assisted Jejunostomy Tube Placement with Repair of Umbilical Hernia(Not Applicable) - Ricardo Pederson, 08/22/21 Port-A-Cath in place (08/22/21) p Insertion of Infusaport Left Subclavian(Left) - Ricardo Pederson DO s Laproscopic Assisted Jejunostomy Tube Placement with Repair of Umbilical Hernia- Ricardo Pederson DO 08/22/21 S/P rotator cuff repair RT [place] teeth removed Past Anesthesia History No Hx of Anesthesia Complications and No Family Hx of Anesthesia Complications History of PONV No Hx of PONV and No Hx of Motion Sickness Social History Smoking Status: Never smoker tobacco type: smokeless tobacco Do You Dip or Chew Tobacco: No Hx Alcohol Use: No Alcohol type: beer and wine alcohol intake frequency: 0-2 drinks per day Hx Substance Use: Yes substance use type: marijuana Last Used Substance: Unknown Last Used Substance Other:: LAST USED>THIS WEEK *ADVISED by RN Physical Exam Vital Signs Last Vital Signs Temp 36.6 C 01/05/22 10:38 Pulse 103 H 01/05/22 10:38 Resp 20 01/05/22 10:38 BP 140/93 01/05/22 10:38 Pulse Ox 95 01/05/22 10:38 Testing Laboratory Results 01/05/22 07:22 01/05/22 07:22
[2022-01-05] MEDS ORDERED: CIPROFLOXACIN 400MG / 200ML D5W IV ONE (10:57)
[2022-01-05] MEDS ORDERED: fentaNYL citrate 100 MCG/2 ML VIAL IV PRN (10:57)
[2022-01-05] MEDS ORDERED: ePHEDrine sulfate 50 MG/ML AMP IV PRN (10:57)
[2022-01-05] MEDS ORDERED: ONDANSETRON INJ 2 MG/ML 2 ML VIAL IV PRN (10:57)
[2022-01-05] MEDS ORDERED: ATROPINE SULFATE 0.1 MG/ML 10ML SYR IV PRN (10:57)
[2022-01-05] MEDS ORDERED: Nursing to Pharmacy Communication SCH (11:00)
[2022-01-05] MEDS ORDERED: MIDAZOLAM HCL 1 MG/ML 2ML VIAL ONE (11:09)
[2022-01-05] MEDS ORDERED: fentaNYL citrate 100 MCG/2 ML VIAL ONE ×2 (11:09→11:30)
[2022-01-05] MEDS ORDERED: CIPROFLOXACIN / D5W 400 MG/200 ML BAG IV SCH (11:30)
[2022-01-05] MEDS ORDERED: LR 15ML/HR IV SCH (11:30)
[2022-01-05] MEDS ORDERED: INDOMETHACIN 50 MG SUPP PR ONE (12:20)
--- NOTE | 2022-01-05 12:49 | Post Operative Brief Note ---
Immediate Post Op Note v1 Date of Surgery January 05, 2022 Pre & Post Diagnosis Operation Date: 01/05/22 07:55 Pre-Op Diagnosis: Intrahepatic bile duct dilation Abnormal LFTs Esophageal cancer I identified the patient and participated in the time-out.: Yes Procedure Operation Date: 01/05/22 07:55 EGD with stricture dilation Attempted EUS (unable to pass endoscope) ERCP attempted, prophylactic pancreatic stent / unable to cannulate the biliary tree Surgeon Ronak Israel, Population Health Manager none Estimated Blood Loss 10 Findings Consistent with Post-Op Diagnosis
--- NOTE | 2022-01-05 12:50 | Communication Note ---
Date of Service: January 05, 2022 The patient underwent upper endoscopy, endoscopic ultrasound and ERCP this afternoon. The endoscopic evaluation was notable for a high-grade stricture of the distal esophagus extending into the primary tumor which involved most of the patient's stomach. It appears that the patient's duodenum is now also involved with tumor ingrowth from the gastric primary. We did perform an esophageal dilation with a balloon dilator to 15 mm but could not pass the endoscopic ultrasound endoscope. Thus ERCP was attempted, unfortunately despite numerous attempts the biliary tree could not be cannulated. We did place a prophylactic pancreatic stent. Recommendations May have clears today Ciprofloxacin twice daily for a total of 5 days Transfer to a tertiary care center with potential interventional radiology support versus EUS guided access. Due to the esophageal stricture it is unlikely that an EUS endoscope can pass.
--- NOTE | 2022-01-05 12:53 | GI REPORT ---
Patient Name: John Zhang Procedure Date: 01/05/2022 11:25 AM Date of : 1965 Admit Type: Inpatient Age: 56 Gender: Male Attending MD: Ronak Israel DO Procedure: Upper EUS Providers: Ronak Israel DO Referring MD: Aleks House Indications: Common bile duct dilation (acquired) seen on CT scan, Elevated liver enzymes Medicines: General Anesthesia Complications: No immediate complications. Estimated blood loss: Minimal. Estimated Blood Loss: Estimated blood loss was minimal. Procedure: Pre-Anesthesia Assessment: - Prior to the procedure, a History and Physical was performed, and patient medications, allergies and sensitivities were reviewed. The patient's tolerance of previous anesthesia was reviewed. - The risks and benefits of the procedure and the sedation options and risks were discussed with the patient. All questions were answered and informed consent was obtained. - Patient identification and proposed procedure were verified prior to the procedure by the physician, the nurse and the engineering department chair. The procedure was verified in the procedure room. - Pre-procedure physical examination revealed no contraindications to sedation. - ASA Grade Assessment: III - A patient with severe systemic disease. - After reviewing the risks and benefits, the patient was deemed in satisfactory condition to undergo the procedure. - The anesthesia plan was to use general anesthesia. - Immediately prior to administration of medications, the patient was re-assessed for adequacy to receive sedatives. - The heart rate, respiratory rate, oxygen saturations, blood pressure, adequacy of pulmonary ventilation, and response to care were monitored throughout the procedure. - The physical status of the patient was re-assessed after the procedure. After obtaining informed consent, the endoscope was passed under direct vision. Throughout the procedure, the patient's blood pressure, pulse, and oxygen saturations were monitored continuously. The Endosonoscope was introduced through the mouth, with the intention of advancing to the duodenum. The scope was advanced to the lower third of the esophagus before the procedure was aborted. Medications were given. The upper EUS was aborted due to a partially obstructing mass. Findings: ENDOSCOPIC FINDING: : One malignant-appearing, intrinsic severe (stenosis; an endoscope cannot pass) stenosis was found 35 cm from the incisors. Impression: - The upper EUS was aborted due to partially obstructing mass. - No specimens collected. Recommendation: - Perform an ERCP today. Ronak Israel D.O. Ronak Israel, 01/05/2022 12:53:27 PM This report has been signed electronically. Note Initiated On: 01/05/2022 11:25 AM Number of Addenda: 0 I attest to the content of the Intraoperative Record and orders documented therein, exceptions below {[id number]}
--- NOTE | 2022-01-05 12:57 | Fluoroscopy Report ---
[place] ERCP biliary ductal CLINICAL HISTORY: EXPLORE DUCTS COMPARISON STUDY: CT of the abdomen and pelvis January 04, 2022. FLUOROSCOPY TIME: 3 minutes and 35 seconds. FLUOROSCOPIC IMAGES: 107 FINDINGS: Fluoroscopy was provided during ERCP. Pancreatic duct was cannulated. Cannulation of the bi liary tree was attempted. There is opacification of the biliary tree. IMPRESSION: Fluoroscopy provided during ERCP. ACT 112: Negative or not required by law. Electronically signed by: Andrew Spears M.D. 01/05/2022 12:56 PM
--- NOTE | 2022-01-05 12:57 | GI REPORT ---
Patient Name: John Zhang Procedure Date: 01/05/2022 11:08 AM Date of : 1965 Admit Type: Inpatient Age: 56 Gender: Male Attending MD: Ronak Israel DO Procedure: Upper GI endoscopy Providers: Ronak Israel DO Referring MD: Aleks House Indications: Dysphagia, Suspected malignant esophageal tumor, For therapy of malignant esophageal tumor Medicines: General Anesthesia Complications: No immediate complications. Estimated blood loss: Minimal. Estimated Blood Loss: Estimated blood loss was minimal. Procedure: Pre-Anesthesia Assessment: - Prior to the procedure, a History and Physical was performed, and patient medications, allergies and sensitivities were reviewed. The patient's tolerance of previous anesthesia was reviewed. - The risks and benefits of the procedure and the sedation options and risks were discussed with the patient. All questions were answered and informed consent was obtained. - Patient identification and proposed procedure were verified prior to the procedure by the physician, the nurse and the rolfer. The procedure was verified in the pre-procedure area in the procedure room. - Pre-procedure physical examination revealed no contraindications to sedation. - ASA Grade Assessment: III - A patient with severe systemic disease. - After reviewing the risks and benefits, the patient was deemed in satisfactory condition to undergo the procedure. - The anesthesia plan was to use general anesthesia. - Immediately prior to administration of medications, the patient was re-assessed for adequacy to receive sedatives. - The heart rate, respiratory rate, oxygen saturations, blood pressure, adequacy of pulmonary ventilation, and response to care were monitored throughout the procedure. - The physical status of the patient was re-assessed after the procedure. After obtaining informed consent, the endoscope was passed under direct vision. Throughout the procedure, the patient's blood pressure, pulse, and oxygen saturations were monitored continuously. The Endoscope was introduced through the mouth, and advanced to the third part of duodenum. The upper GI endoscopy was accomplished without difficulty. The patient tolerated the procedure well. Findings: One malignant-appearing, intrinsic moderate (circumferential scarring or stenosis; an endoscope may pass) stenosis was found 35 to 40 cm from the incisors. This stenosis measured 8 mm (inner diameter) x 5 cm (in length). The stenosis was traversed. A TTS dilator was passed through the scope. Dilation with a 12-13.5-15 mm balloon dilator was performed to 15 mm. The dilation site was examined following endoscope reinsertion and showed mild mucosal disruption. Estimated blood loss was minimal. A large, frond-like/villous, fungating and infiltrative mass with oozing bleeding and stigmata of recent bleeding was found in the gastric fundus, in the gastric body and in the gastric antrum. Diffuse nodular mucosa was found in the duodenal bulb, in the second portion of the duodenum and in the area of the papilla. Impression: - Malignant-appearing esophageal stenosis. Dilated to 15 mm to facilitate EUS and ERCP. - Malignant gastric tumor in the gastric fundus, in the gastric body and in the gastric antrum. - Nodular mucosa in the duodenal bulb, in the second portion of the duodenum and in the area of the papilla, this likely represent tumor ingrowth into the duodenum. - No specimens collected. Recommendation: - Perform an ERCP today. Ronak Israel D.O. Ronak Israel, 01/05/2022 12:56:47 PM This report has been signed electronically. Note Initiated On: 01/05/2022 11:08 AM Number of Addenda: 0 I attest to the content of the Intraoperative Record and orders documented therein, exceptions below {[id number]}
--- NOTE | 2022-01-05 13:03 | GI REPORT ---
Patient Name: John Zhang Procedure Date: 01/05/2022 11:33 AM Date of : 1965 Admit Type: Inpatient Age: 56 Gender: Male Attending MD: Ronak Israel DO Procedure: ERCP Providers: Ronak Israel DO Referring MD: Aleks House Indications: Biliary dilation on Computed Tomogram Scan, Biliary dilation on Ultrasound, Elevated liver enzymes Medicines: General Anesthesia Complications: No immediate complications. Estimated blood loss: Minimal. Estimated Blood Loss: Estimated blood loss was minimal. Procedure: Pre-Anesthesia Assessment: - Prior to the procedure, a History and Physical was performed, and patient medications, allergies and sensitivities were reviewed. The patient's tolerance of previous anesthesia was reviewed. - The risks and benefits of the procedure and the sedation options and risks were discussed with the patient. All questions were answered and informed consent was obtained. - Patient identification and proposed procedure were verified prior to the procedure by the physician, the nurse and the simulation educator. The procedure was verified in the procedure room. - Pre-procedure physical examination revealed no contraindications to sedation. - ASA Grade Assessment: III - A patient with severe systemic disease. - After reviewing the risks and benefits, the patient was deemed in satisfactory condition to undergo the procedure. - The anesthesia plan was to use general anesthesia. - Immediately prior to administration of medications, the patient was re-assessed for adequacy to receive sedatives. - The heart rate, respiratory rate, oxygen saturations, blood pressure, adequacy of pulmonary ventilation, and response to care were monitored throughout the procedure. - The physical status of the patient was re-assessed after the procedure. After obtaining informed consent, the scope was passed under direct vision. Throughout the procedure, the patient's blood pressure, pulse, and oxygen saturations were monitored continuously. The Duodenoscope was introduced through the mouth, and advanced to the duodenum and used to inject contrast into the ventral pancreatic duct. The ERCP was performed with difficulty due to challenging cannulation. Successful completion of the procedure was aided by performing the maneuvers documented (below) in this report. Findings: The special projects coordinator film was normal. The esophagus was successfully intubated under direct vision without detailed examination of the pharynx, larynx, and associated structures, and upper GI tract. The known esophageal mass was carefully navigated by following the previously placed a Savary guidewire.. A large infiltrative mass was found at the major papilla extending from the stomach as noted on the upper endsocopy. The ventral pancreatic duct was inadvertently cannulated with the short-nosed traction sphincterotome and guidewire without any complications. The bile duct could not be cannulated with the short-nosed traction sphincterotome and guidewire, numerous combinations were tried to include a 0.035 Acrobat 2, 0.025 in Visiglide and angled visiglide and finally a 0.035 in Deta Wire. One 5 Fr by 7 cm pancreatic stent with a full external pigtail and no internal flaps was placed 7 cm into the ventral pancreatic duct. Clear fluid flowed through the stent. The stent was in good position. The endoscope was withdrawn from the patient. Indomethacin 100 mg was given via suppository to decrease the risk of post-ERCP pancreatitis (PEP). Impression: - The major papilla appeared to have a mass. - One pancreatic stent was placed into the ventral pancreatic duct. - Indomethacin given to decrease risk of post-ERCP pancreatitis. Recommendation: - [facility]. - Use broad spectrum antibiotics for 5 days. - Consider referral to Tertiary center by managing physician. Options would include a repeat attempt at ERCP at an expert center, possible endoscopic ultrasound guided cannulation or percutaneous access with a rendezvous procedure. Ronak Israel D.O. Ronak Israel, 01/05/2022 1:03:28 PM This report has been signed electronically. Note Initiated On: 01/05/2022 11:33 AM Number of Addenda: 0 I attest to the content of the Intraoperative Record and orders documented therein, exceptions below {[id number]}
[2022-01-05] MEDS ORDERED: PHENYLEPHRINE HCL 10 MG/ML VIAL ONE (13:10)
[2022-01-05] MEDS ORDERED: GLUCAGON FOR INJ 1 MG VIAL ONE (13:36)
--- NOTE | 2022-01-05 13:46 | Discharge Summary ---
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 All biopsies at that time were positive for adenocarcinoma of the esophagus/stomach. He was initiated on cisplatin/docetaxel in early August and underwent 3 treatment cycles. Switched to CAPOX-nivolumab in October, and in November the CAPOX portion was discontinued but he was continued on nivolumab. His most recent oncological care has been Dr Sheyla Chavez at [facility]. Today Mr Zhang presents as a direct admission to the hospital due to worsening LFTs. AST/ALT/Alk phos were generally normal in early November 2021 but began to rise late in November. His LFTs were repeated again today and unfortunately continue to rise. There was concern that recent administration of his Nivolumab may have been the cause of such and thus he was placed on a 7 day course of oral prednisone 50m g/day. He completed that course yesterday. Despite such the LFTs have not improved. Denies any etoh or tylenol usage. No other recent medication additions that cause hepatotoxicity. He denies any change in his chronic GI stomach discomfort/upset. No RUQ pain. Appetite has been quite poor. Takes very little nourishment by mouth. No fevers or chills. Continues j-tube feedings with peptamen 1.5, five - 250cc cans, running from 6pm to 6am each day/night. Stools have been normal; last BM was this am - no blood, no melena. No recent sick contacts or travel. Admits to ongoing depression. Principal Diagnosis CBD stenosis d/t metastatic gastric cancer Esophageal stenosis Discharge Exam GENERAL: 56 yo thin/underweight middle aged WM. NAD. LUNGS: Clear to auscultation bilaterally. No W/R/R. CARDIOVASCULAR: Regular rate and rhythm. ABDOMEN: Soft, nontender. Minimal distention. Liver is palpable. BS normoactive x [address] in [address]. EXTREMITIES: No edema. Non-tender. Peripheral pulses +2/4. NEUROLOGIC: A&O x3. PSYCHIATRIC: Cooperative. Depressed mood and flat affect. SKIN: Warm, dry, intact. No rashes or lesions. Discharge Data Allergies Allergy/AdvReac Type Severity Reaction Status Date / Time No Known Allergies Allergy Verified 11/22/21 15:07 Consultations 01/04/22 15:26 Consult Hematology Routine 01/04/22 22:01 Consult Gastroenterology Routine 01/05/22 13:29 Burn CD for patient Stat Procedures Performed Operation Date: 01/05/22 07:55 Actual Procedures p Esophagogastroduodenoscopy - Ronak Israel DO s Endoscopic Ultrasonography Upper - Ronak Israel DO p Endoscopic Retrograde Cholangiopancreato - Ronak Israel DO Ordered Studies Abdomen/Pelvis CT 01/04/22 16:29 CT OF THE ABDOMEN AND PELVIS WITH CONTRAST CLINICAL HISTORY: abnormal LFTs, gastric cancer, eval liver mets COMPARISON STUDY: CT of the abdomen and pelvis November 22, 2021. PET/CT October 26, 2021. TECHNIQUE: Following IV administration of 118 mL of Optiray, axial images of the abdomen and pelvis were obtained from the lung bases to the proximal femurs. Images were reviewed in the axial, sagittal, and coronal planes. IV contrast was administered without complication. Automated exposure control was utilized for the study. A dose lowering technique was utilized adhering to the principles of ALARA. CT DOSE: 589.20 mGy.cm FINDINGS: Please note that the chest CT will be reported separately. No pneumatosis, free air or portal venous gas is present. Jejunostomy tube is in place. There is no evidence for a bowel obstruction. Bowel dilatation shown on exam of November 22, 2021 has resolved. A small amount of ascites within the abdomen and pelvis has increased. Numerous suspected omental/peritoneal implants are noted. Perirenal nodules have decreased. Abdominal lymphadenopathy is similar to CT of November 22, 2021. Index left para-aortic lymph node measures 2.9 x 2.1 cm. Index radha hepatis lymph node measures 2.3 x 2.9 cm. Mild to moderate intrahepatic biliary ductal dilatation is noted. There is multifocal narrowing/irregularity of the common bile duct. Caliber of the main pancreatic duct is at upper limits of normal. There are no suspicious hepatic lesions. Spleen is unremarkable. Numerous adrenal nodules have progressed. There is no hydronephrosis. A few left renal cysts are present. Major vasculature is patent. Left inguinal hernia contains a portion of the sigmoid colon. This does not result in a bowel obstruction. Gallbladder is distended. This is unchanged. Radha hepatis lymphadenopathy has mass effect upon the main portal vein although this vessel is patent. Gastric wall thickening is again noted. This likely reflects the primary tumor. IMPRESSION: 1. Increase in mild to moderate intrahepatic biliary ductal dilatation. Multifocal narrowing/irregularity of the common bile duct which may result in the biliary ductal dilatation. The etiology for is not clear on this exam although could be due to extrinsic compression by adenopathy. No suspicious hepatic lesions. 2. Extensive metastatic disease, as described above. Progression of peritoneal carcinomatosis with a small amount of ascites. No bowel obstruction. Interval decrease in perirenal nodules/carcinomatosis. 3. Persistent extensive lymphadenopathy and gastric wall thickening. ACT 112: Negative or not required by law. Electronically signed by: Andrew Spears M.D. 01/04/2022 6:36 PM Chest CTA 01/04/22 16:29 CT ANGIOGRAPHY OF THE CHEST, PULMONARY EMBOLUS PROTOCOL CLINICAL HISTORY: Gastric cancer, tachycardia, evaluate for PE. COMPARISON STUDY: Chest CT December 07, 2021. TECHNIQUE: Following IV administration of 118 mL of Optiray, helical axial images of the chest were obtained utilizing the pulmonary embolus protocol. Maximal intensity projections and sagittal and coronal reformats were viewed on an independent 3D workstation. IV contrast was administered without complication. Automated exposure control was utilized for the study. A dose lowering technique was utilized adhering to the principles of ALARA. FINDINGS: Left subclavian Menupx-f-Ewoj is in place. No pulmonary emboli are identified. There is moderate coronary artery calcification. Size of the heart is normal. There is no pericardial effusion. Circumferential wall thickening of the distal esophagus is again noted. No pneumothorax is present. A moderate right pleural effusion has decreased in size since CT of December 07, 2021. Trace left pleural effusion is similar to prior exam. Persistent right basilar conso lidation is noted. 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 This has slightly decreased. Mediastinal and bilateral hilar lymphadenopathy has decreased as well. Abdomen and pelvis CT will be reported separately. No suspicious lesions within the bony thorax. IMPRESSION: 1. No pulmonary emboli identified. 2. Moderate right pleural effusion, decreased in size since CT of December 07, 2021. Persistent right basilar consolidation. No change in a trace left pleural effusion. 3. Extensive lymphangitic carcinomatosis, mildly decreased since prior exam. 4. Interval decrease in mediastinal and bilateral hilar lymphadenopathy. ACT 112: Negative or not required by law. Electronically signed by: Andrew Spears M.D. 01/04/2022 5:57 PM Endo Retro Cholangiopancreatogram 01/05/22 10:30 [place] ERCP biliary ductal CLINICAL HISTORY: EXPLORE DUCTS COMPARISON STUDY: CT of the abdomen and pelvis January 04, 2022. FLUOROSCOPY TIME: 3 minutes and 35 seconds. FLUOROSCOPIC IMAGES: 107 FINDINGS: Fluoroscopy was provided during ERCP. Pancreatic duct was cannulated. Cannulation of the biliary tree was attempted. There is opacification of the b iliary tree. IMPRESSION: Fluoroscopy provided during ERCP. ACT 112: Negative or not required by law. Electronically signed by: Andrew Spears M.D. 01/05/2022 12:56 PM Hospital Course (1) Abnormal LFTs: - Steadily rising since 12/28/2021 - Recent Hep A, B, and C titers were negative. - He is on chronic statin therapy but doubt this is causing the rise in LFTs. - COVID testing is negative. - He has no other signs/symptoms of another viral process such as EBV, CMV, etc. - Dr Chavez from oncology was concerned that recent immunotherapy initiated in October (Nivolumab) for his stage 4 esophageal/gastric ca may have been the culprit for his acute hepatitis. He was given prednisone 50mg daily x 7 days (completed the course yesterday) to see if his LFTs would have any response but his LFTs have trended even higher despite the prednisone. - CT abd/pelvis was obtained this evening, showing intra-hepatic biliary ductal dilatation, and CBD narrowing/stenosis. * [facility] GI consulted, appreciate assistance - underwent ERCP with Dr. Israel, placed prophylactic pancreatic stent, could not cannulate the biliary duct, subsequently transfer is advised for IR consult and placement of percutaneous mason tube - It was discussed possibly using IV solumedrol with cellcept in the event his acute hepatitis was from his immunotherapy. - Since it appears that the issue is more anatomic will HOLD the steroids/cellcept at this time. (2) Acute hepatitis: - see above. - recent Hep A, B, and C all negative. - COVID negative. (3) Metastatic adenocarcinoma: - stage 4 esophageal/gastric ca, dx 07/2021. - follows with Dr Chavez at [facility]. - formal consult placed to Dr Chavez, appreciate assistance - see [facility] for details of chemotherapy since his diagnosis. (4) Failure to thrive: Secondary to metastatic cancer. - depression also likely playing a role as well. - could consider remeron 7.5mg HS-but this could be addressed as an outpatient - cont J-tube feedings. (5) Jejunostomy tube present: - current J-tube feedings -- Peptamen 1.5, 1250cc over 12 hours (6p-6a). Thus, 105cc/hr continuously during those hours. - Will ask nutrition to see in consult to confirm these will continue to provide his dietary needs. - clear liquids ONLY until he is transferred (6) Sinus tachycardia: - Present since early 2021. - Echo 07/2021 (done at [facility]) with EF 55%. - CTA chest today without PE. - H/H acceptable. - TSH wnl today. - No pain. No anxiety. - No pericardial effusion on CTA chest. (7) Gastric cancer: as above (8) Iron deficiency anemia: s/p IV iron in the past. H/H mildly low but acceptable today. (9) Acid reflux: Cont PPI. (10) Candidiasis of mouth and esophagus: nystatin solution 5cc qid swish/spit Dr. Israel has advised transfer due to the above to a tertiary center. Contacted [facility], pt accepted by hospitalist, Dr. Peacock, and GI, Dr. Kilgore. He is medically stable for discharge with transfer once a bed assignment has been received. Will be transferred via BLS-ground. Plan has been d/w Dr. Catrina Rosado who is in agreement. Total Time Total Time Spent Total Time Spent (In Minutes): >30 minutes Discharge Plan Discharge Items Patient Disposition: Transfer Acute Care Hospital Reason For Visit: IMMUNE HEPATITIS Discharge Diagnosis: Blocked gallbladder duct due to tumor Activity: Resume your previous activity Non-emergency contact: Primary Care Provider, Specialist and Oncologist Call non-emergency contact if: you have any medication questions Follow-up/Referrals: Uzair Coffman PA-C [Primary Care Provider] - Diet: Clear liquid Addtl Attending Provider Instructions: You are being transferred to [facility] for higher level medical care that cannot be provided at [facility]. Pending Studies at Discharge: No Stand-Alone Forms: My [facility] Skilled Items Patient informed of condition?: Yes DNR: No Discharge Level of Care: Other Communicable Disease: No Discharge Prognosis: Stable Lines: Peripheral IV Urinary Catheter: No Medications and DC Order Prescriptions: New Peptamen 1.5 0.068 gram- 1.5 kcal/mL Liquid See Rx Instructions .ROUTE .COMPLEX Qty: 250 RF: 0 Continued oxycodone 5 mg tablet 5 mg PO Q4H PRN (Reason: Pain) RF: 0 silver sulfadiazine [Silvadene] 1 % cream 1 applic topical BID PRN (Reason: wound healing) Qty: 50 RF: 1 ondansetron HCl 8 mg tablet 8 mg PO Q8 PRN (Reason: Nausea) RF: 0 olanzapine 2.5 mg tablet 2.5 mg PO DIRECTED PRN (Reason: PER PT " NEEDED".) RF: 0 cyanocobalamin (vitamin B-12) 1,000 mcg lozenge 1,000 mcg sublingual DAILY Qty: 50 RF: 5 pantoprazole [Protonix] 40 mg tablet,delayed release (DR/EC) 40 mg PO QAM Qty: 30 RF: 5 dronabinol 5 mg capsule 5 mg PO BID RF: 0 capecitabine 500 mg tablet 500 mg PO DIRECTED RF: 0 Discontinued acetaminophen [Tylenol Extra Strength] 500 mg tablet 500 mg PO QID PRN (Reason: Pain) RF: 0 Admission Data Admit Date/Time: 01/04/22 14:08 Attending Provider: Dionisio Rosado Admit Provider: Aleks House Primary Care Provider: Uzair Coffman Other Providers: Sheyla Chavez ; Ronak Israel Supervising Physician Co-Signing Physician Notes I supervised Dannielle Bruno PA-C on the care of this patient. The plan is as written in her note except for any following changes/exceptions: None Discussed with GI. Requires probably perc gallbladder drain. Plan for tx to tertiary care for IR. Coding Level of Care Code D/C DAY MANAGEMENT >30 MINS Diagnoses Abnormal LFTs R79.89 Acute hepatitis B17.9 Metastatic adenocarcinoma C79.9 Failure to thrive Jejunostomy tube present Z93.4 Sinus tachycardia R00.0 Gastric cancer C16.9 Iron deficiency anemia D50.9 Acid reflux K21.9 Candidiasis of mouth and esophagus B37.81; B37.0
--- NOTE | 2022-01-05 16:01 | Anesthesiology Progress Note ---
Date of Service January 05, 2022 Anesthesia Post Procedure Vital Signs Vital Signs: Temp Pulse Pulse Resp BP BP Pulse Ox 01/05/22 15:58 36.4 C L 108 H 20 132/81 95 01/05/22 14:55 36.4 C L 102 H 18 143/87 H 94 01/05/22 14:25 36.3 C L 101 H 18 147/96 H 96 01/05/22 13:55 36.3 C L 95 H 14 145/94 H 97 01/05/22 13:40 93 H 21 150/95 H 95 01/05/22 13:30 36.8 C 92 H 15 153/97 H 96 01/05/22 13:20 92 H 15 155/83 H 95 01/05/22 13:10 92 H 17 148/82 H 98 01/05/22 13:00 36.1 C L 93 H 19 158/81 H 98 01/05/22 10:38 36.6 C 103 H 20 140/93 95 01/05/22 06:28 36.4 C L 106 H 18 146/88 H 97 01/04/22 22:35 36.6 C 109 H 18 125/87 95 Pain Intensity Medial Abdomen: Pain Intensity: 5 Transfer of Care Handoff Completed per policy Notes Mental Status: alert / awake / arousable and participated in evaluation Patient Amnestic to Procedure: Yes Nausea / Vomiting: adequately controlled Pain: adequately controlled Airway Patency, RR, SpO2: stable & adequate BP & HR: stable & adequate Hydration State: stable & adequate Anesthetic Complications: no major complications apparent and Pt Satisfied with anesthetic care
[2022-01-05] MEDS: methylPREDNISolone 30 MG in SYRINGE 0 ML IV SCH (17:05)
[2022-01-05] MEDS ORDERED: PEPTAMEN 1.5 CAL 1,000 ML BAG JT SCH (18:00)
[2022-01-05] MEDS ORDERED: PEPTAMEN 1.5 CAL 1,000 ML BAG PO SCH (18:00)
[2022-01-05] MEDS: MYCOPHENOLATE MOFETIL 250 MG CAP PO SCH (21:08)
[2022-01-06] MEDS ORDERED: [UNRECOGNIZED DRUG - REMARK] SCH (06:30)
[2022-01-06] MEDS ORDERED: TUBE FEEDING WATER FLUSH JT SCH (07:00)
== END 2022-01-05 22:30 | disposition short-term general hospital (02) ==
LOC: 3E 14:08 → INTOOBSV 14:08 → SUATTDRO 14:08